=== PATIENT | female | born 1945 | race Caucasian/White ===

== ENCOUNTER 2018-07-04 00:39 | Outpatient (CLI) | payer MEDICARE, BC, SELFPAY ==
--- NOTE | 2018-07-04 14:30 | DI.MAMMO_ITS ---
SYMPTOM/DIAGNOSIS: SCREENING MAMMOGRAMS: Mammograms were interpreted according to the usual protocol including computer analysis with CAD system, tomosynthesis and C view imaging. Comparison is with the prior examinations. No masses or microcalcifications are seen. There is nothing to suggest malignancy. IMPRESSION: Negative mammogram. Routine screening is recommended. Category 1 , breast density category B. MQSA ASSESSMENT OF FINDINGS: Negative. Category 1. Patient will receive a letter notifying them of these results. BI-RADS category B. There are scattered areas of fibroglandular density.
== END 2018-07-04 00:59 ==
PROVIDERS: PCP Nurse Practitioner Family; Visit Provider Nurse Practitioner Family
DX: Z12.31 Encounter for screening mammogram for malignant neoplasm of breast (principal)
CPT/HCPCS: 77063; 77067

== ENCOUNTER 2018-07-06 02:16 | Outpatient (CLI) | payer MEDICARE, BC, SELFPAY ==
[2018-07-06 08:24] LABS: ALT 25 U/L (12-78); AST 22 U/L (15-37); Albumin 3.3 g/dL (3.4-5.0); Alkaline Phosphatase 86 U/L (46-116); BUN 14 mg/dL (7-18); Bilirubin, Total 0.5 mg/dL (0.2-1.0); CREATININE 0.92 mg/dL (0.55-1.02); Calcium 8.6 mg/dL (8.5-10.1); Chloride 105 mmol/L (98-107); Cholesterol 180 mg/dL (50-200); Estimated GFR 59.67 (mL/min/1.73m2); Glucose 172 mg/dL (70-100); HDL Cholesterol 78 mg/dL (40-60); LDL CHOLESTEROL 90 mg/dL (<100); Potassium 4.5 mmol/L (3.5-5.1); Sodium 141 mmol/L (136-145); Total Protein 6.3 g/dL (6.4-8.2); Triglyceride 102 mg/dL (30-150)
== END 2018-07-06 02:36 ==
PROVIDERS: PCP Nurse Practitioner Family; Visit Provider Nurse Practitioner Family
DX: E78.5 Hyperlipidemia, unspecified (principal); I10 Essential (primary) hypertension
CPT/HCPCS: 36415; 80053; 80061; 83721

== ENCOUNTER 2018-12-02 17:16 | Emergency (ER) | payer MEDICARE, BC, SELFPAY ==
[2018-12-02 17:22] VITALS: BP 160/91; PULSE 68; RESP 16; TEMP 36.7
--- NOTE | 2018-12-02 18:48 | W.ED.GENAD ---
Discharge Plan Disposition Patient Disposition: HOME Condition: Stable Discharge Details Chief Complaint: Orthopedic Clinical Impression: Plantar fasciitis of right foot Reason For Visit: right foot pain Primary Care Provider: Nell Felder ED Provider: Ubaldo Sarmiento Home Meds and New Rx's Prescriptions: Continued Shingrix (PF) 50 mcg/0.5 mL suspension for reconstitution 50 mcg IM .COMPLEX Qty: 1 RF: 1 irbesartan 150 mg tablet 150 mg PO DAILY Qty: 90 RF: 3 Lantus U-100 Insulin 100 UNIT/1 ML solution 40 - 50 unit SQ HS RF: 0 aspirin [Aspir-81] 81 MG tablet,delayed release (DR/EC) 81 mg PO DAILY RF: 0 calcium carbonate [Caltrate 600] 600 MG tablet 600 mg PO PRN RF: 0 Humalog KwikPen Insulin 100 UNIT/1 ML insulin pen 8 - 20 unit SQ TID RF: 0 omega-3 fatty acids-fish oil [Fish Oil] 1 EACH capsule 1 ea PO Q3D RF: 0 [id number]-agdt-[id number]-C-mina-bosw 1 EACH tablet 1 tab PO DAILY RF: 0 Victoza 3-Meliton 0.6 MG/0.1 ML pen injector 1.8 mg SQ DAILY RF: 0 polyethylene glycol 3350 [Miralax] 527 GM powder 17 g PO DAILY PRNQty: 1 RF: 3 blood-glucose meter 1 EACH misc 1 ea Miscellaneous QID Qty: 1 RF: 0 blood sugar diagnostic [Blood Glucose Test] 1 EACH strip 1 ea Miscellaneous QID Qty: 150 RF: 3 lancets 1 EACH misc 1 ea Miscellaneous QID Qty: 100 RF: 3 atorvastatin 40 mg tablet 40 mg PO DAILY Qty: 90 RF: 3 alcohol swabs [Alcohol Prep Pads] pads, medicated 1 pad TP QID Qty: 400 RF: 3 trazodone 100 mg tablet 100 mg PO HS PRN (Reason: insomnia) Qty: 90 RF: 0 pantoprazole 40 mg tablet,delayed release (DR/EC) 40 mg PO DAILY AM Qty: 90 RF: 3 cholecalciferol (vitamin D3) [Vitamin D3] 1,000 UNIT capsule 1,000 unit PO DAILY RF: 0 Discharge Instructions Instructions: Plantar Fasciitis Exercises (GEN), Plantar Fasciitis (ED) Additional Instructions: It is recommended that you purchase supportive shoe inserts or use more supportive shoe to see if this helps her symptoms. You may otherwise continue your bchw-xzm-ehhudiq pain medication as needed for discomfort and follow-up with podiatry as needed for reassessment. Feel free to return to the emergency department for any new or significant worsening of your symptoms or further concerns you may have Referrals: Tayo Blake DPM [[facility] STAFF PHYSICIAN] - (Call the office for arrangement of follow-up appointment as needed) Discharge Data Discharge Date/Time-TO BE ENTERED AT DEPARTURE: 12/02/18 18:57 Medical Decision Making Patient presenting to the emergency department for chief complaint of right foot pain. Patient states that this is been going on for greater than 2 months and initially would improve with rest but now seems to be more persistent. Patient denies any loss of sensation, numbness tingling, denies diabetes, denies any injury or trauma. Physical exam shows tenderness to the plantar surface of the midfoot otherwise no other acute findings are noted. High suspicion for plantar fasciitis. Patient states that she is not her chest new shoes in a while. Patient was offered radiological imaging but I do not feel that this is 100% necessary at this time. Patient was agreeable to purchasing more supportive footwear and following up with podiatry which she states she has close contact with for reassessment. Return precautions discussed. After discussion of diagnosis and plan of care patient has no further needs, questions, or concerns and states clear understanding to return to the emergency department for any worsening symptoms. HPI General Mode of arrival: wheelchair. Date/Time Provider Initiated Documentation: 12/02/18 17:22. Limitations to Documentation: no limitations. Information obtained by: patient, family and RN notes reviewed. History of Present Illness 73 year old F presents to the emergency department with the chief complaint of right foot pain, described as moderate and similar to prior episodes, with intensity rated at 7. Quality is described as sharp, and is localized to the right and lower extremity. Patient started experiencing this month(s) (2+) and it has been intermittent (but becoming worse). Rest improves symptom(s), Movement worsens symptoms . Patient notes no other symptoms.. Patient did receive the following treatments prior to arrival, none Related Data Home Medications Medication Instructions Recorded Confirmed Humalog KwikPen Insulin 8 - 20 unit SQ TID 12/15/12 07/03/18 Lantus U-100 Insulin 40 - 50 unit SQ HS vial 12/15/12 12/02/18 aspirin [Aspir-81] 81 mg PO DAILY tab-cap 12/15/12 12/02/18 calcium carbonate [Caltrate 600] 600 mg PO PRN 12/15/12 12/02/18 kopvrnwn-jtsr-[id number]-C-mina-bosw 1 tab PO DAILY 12/15/12 12/02/18 omega-3 fatty acids-fish oil [Fish 1 ea PO Q3D 12/15/12 12/02/18 Oil] Victoza 3-Meliton 1.8 mg SQ DAILY 12/02/14 12/02/18 polyethylene glycol 3350 [Miralax] 17 g PO DAILY PRN #1 bottle 12/02/14 12/02/18 blood-glucose meter #1 ea 08/10/16 07/03/18 blood sugar diagnostic [Blood #150 strip 01/14/17 07/03/18 Glucose Test] lancets #100 ea 08/29/17 07/03/18 cholecalciferol (vitamin D3) 1,000 unit PO DAILY 10/26/17 12/02/18 [Vitamin D3] irbesartan 150 mg tablet 150 mg PO DAILY #90 tab-cap 07/03/18 12/02/18 varicella-zoster glycoE [id number] 50 mcg IM .COMPLEX #1 each 07/03/18 12/02/18 adj(PF) 50 mcg/0.5 mL IM susp, kit atorvastatin 40 mg tablet 40 mg PO DAILY #90 tab-cap 07/26/18 12/02/18 alcohol swabs 1 pad TP QID #400 each 09/13/18 trazodone 100 mg tablet 100 mg PO HS PRN #90 tab-cap 10/09/18 12/02/18 pantoprazole 40 mg tablet,delayed 40 mg PO DAILY AM #90 tab-cap 11/24/18 12/02/18 release Previous Rx's Medication Instructions Recorded lancets #100 ea 08/29/17 irbesartan 150 mg tablet 150 mg PO DAILY #90 tab-cap 07/03/18 varicella-zoster glycoE [id number] 50 mcg IM .COMPLEX #1 each 07/03/18 adj(PF) 50 mcg/0.5 mL IM susp, kit atorvastatin 40 mg tablet 40 mg PO DAILY #90 tab-cap 07/26/18 alcohol swabs 1 pad TP QID #400 each 09/13/18 trazodone 100 mg tablet 100 mg PO HS PRN #90 tab-cap 10/09/18 pantoprazole 40 mg tablet,delayed 40 mg PO DAILY AM #90 tab-cap 11/24/18 release Allergies Allergy/AdvReac Type Severity Reaction Status Date / Time enalapril AdvReac Intermediate cough Unverified 12/02/18 17:24 codeine AdvReac N/V Unverified 12/02/18 17:24 Sulfa (Sulfonamide AdvReac NAUSEA Unverified 12/02/18 17:24 Antibiotics) General Stated Complaint: Orthopedic PIERCE: 4 Review of Systems Constitutional Denies body ache(s), Denies chills and Denies fever(s) Cardiovascular Denies chest pain and Denies dyspnea Respiratory Denies dyspnea Musculoskeletal Reports as per HPI, Denies joint swelling, Denies limited range of motion, Denies numbness and Denies tingling Integumentary/Breasts Denies rash Neurologic Denies confusion, Denies numbness, Denies sensory deficit and Denies tingling Psychiatric Denies confusion [facility] Medical History Essential hypertension (Chronic) Type 2 diabetes mellitus with retinopathy of both eyes, without long-term current use of insulin (Chronic) Sleep disturbance, unspecified (Chronic 09/26/07) Lumbago (Chronic 07/21/12) Seronegative rheumatoid arthritis (Inactive 06/26/11) Other and unspecified hyperlipidemia (Chronic 11/23/11) Lipoma of back (Chronic 04/12/16) Asymptomatic varicose veins (Chronic 03/06/12) Anxiety disorder (Chronic 07/21/12) Anxiety Arthritis Diabetes mellitus, type 2 GERD (gastroesophageal reflux disease) Hyperlipidemia Hypertension Lipoma of back Surgical History Abdominal hysterectomy Adenoidectomy Arthroplasty of knee Biopsy of breast Cholecystectomy Colonoscopy - MAC (10/31/17) Excision, Lipoma (11/17/17) Flex laryngoscopy (07/31/15) Oophrectomy, Left Family History Other Heart disease Hypothyroidism Mental disorder Social History Smoking/Tobacco Use Status: Former Tobacco Use Alcohol Intake: current Alcohol Intake frequency: holidays/special occasions only Drug use: Never Substance use type: does not use Household members: spouse Do you feel safe in your relationship?: Yes Exam Const General: cooperative, no acute distress and not ill appearing Orientation: alert, awake and oriented x3 HENMT Mouth: moist mucous membranes Resp Effort & Inspection: normal respiratory effort, able to speak in complete sentences and no respiratory distress Cardio Rate: regular rate Rhythm: regular rhythm Skin General skin exam: no rashes or lesions noted Neuro General: alert, awake, oriented x3, moves all extremities and no focal motor deficits Sensory Exam: no sensory deficits noted Extrem Right lower extremity: foot Details: normal capillary refill, tenderness Location: of the plantar foot Location: proximally and of the mid foot Location: along the plantar surface; not of the base of the 5th metatarsal, toes with normal ROM, vascular exam Details: dorsalis pedis pulse present, posterior tibial pulse present and normal capillary refill; not cool and no cyanosis, tendon exam Details: active flexion normal and active extension normal and motor-sensory exam Details: two point discrimination normal and light-touch normal Course Vital Signs Temperature 36.7 C 12/02/18 17:22 Pulse 68 12/02/18 17:22 Respiratory Rate 16 12/02/18 17:22 Blood Pressure 160/91 H 12/02/18 17:22 Temperature 36.7 C 12/02/18 17:22 Temperature Source Temporal Artery Scan 12/02/18 17:22 Pulse 68 12/02/18 17:22 Respiratory Rate 16 12/02/18 17:22 Respiratory Effort 12/02/18 17:36 Blood Pressure 160/91 H 12/02/18 17:22 Blood Pressure Position Sitting 12/02/18 17:22
== END 2018-12-02 18:57 | disposition home or self-care (01) ==
PROVIDERS: Emergency Provider Nurse Practitioner Family; PCP Nurse Practitioner Family
DX: M72.2 Plantar fascial fibromatosis (principal); E11.9 Type 2 diabetes mellitus without complications; I10 Essential (primary) hypertension; Z79.4 Long term (current) use of insulin
CPT/HCPCS: 36416; 82962; 99282

== ENCOUNTER 2019-05-07 11:53 | Outpatient (CLI) | payer MEDICARE, BC, SELFPAY ==
[2019-05-07 13:19] LABS: TSH 1.99 uIU/mL (0.36-3.74)
== END 2019-05-07 12:13 ==
PROVIDERS: PCP Nurse Practitioner Family; Visit Provider Internal Medicine Endocrinology, Diabetes & Metabolism
DX: E11.9 Type 2 diabetes mellitus without complications (principal); Z79.4 Long term (current) use of insulin
CPT/HCPCS: 36415; 82565; 83036; 84443

== ENCOUNTER 2019-06-08 01:37 | Outpatient (CLI) | payer MEDICARE, BC, SELFPAY ==
--- NOTE | 2019-06-08 10:00 | DIABASSESS_ITS ---
DESCRIPTION/PLAN: Annel Simeon presents for diabetes consult looking to use [employer] CGM. She has already applied for it and has hooked up with a distributor. She is awaiting delivery and will return when she gets her first device. Reviewed basics of how it is used. Individual DSME/T _0___ units billed TIME IN: 1000 OUT: 1015 No DM group education series being offered at this time.
== END 2019-06-08 01:57 ==
PROVIDERS: PCP Nurse Practitioner Family; Visit Provider Dietitian, Registered
DX: Z71.3 Dietary counseling and surveillance (principal); E11.9 Type 2 diabetes mellitus without complications

== ENCOUNTER 2019-06-13 14:20 | Outpatient (CLI) | payer MEDICARE, BC, SELFPAY ==
--- NOTE | 2019-06-13 14:15 | DI.US_ITS ---
EXAM: US LOWER EXTREMITY VENOUS LT CLINICAL HISTORY: L leg swelling x several years, M78.89, getting worse, r/o DVT. TECHNIQUE: Duplex evaluation of the deep venous system of the left lower extremity is performed acco rding to the usual protocol. COMPARISON: ABD WALL SOFT TISSUE MASS US from 03/19/2016 FINDINGS: There is no evidence of deep venous thrombosis. No superficial venous thrombus is seen. No evidence of a popliteal cyst. IMPRESSION: Negative venous ultrasound, left lower extremity. No evidence of DVT.
== END 2019-06-13 14:40 ==
PROVIDERS: PCP Nurse Practitioner Family; Visit Provider Nurse Practitioner Family
DX: R22.42 Localized swelling, mass and lump, left lower limb; M79.89 Other specified soft tissue disorders
CPT/HCPCS: 93971

== ENCOUNTER 2019-07-13 00:20 | Outpatient (CLI) | payer MEDICARE, BC, SELFPAY ==
--- NOTE | 2019-07-13 13:00 | DIABASSESS_ITS ---
DESCRIPTION/ASSESSMENT: Annel Simeon presents for follow up to CGM insertion and wishing for support to place the new G6 Dexcom independently. This is follow up to initial insertion here 2 weeks ago where we went over the process and together administered the G6 sensor, transmitter, and started up her health associate. INTERVENTION: Successfully applied the Dexcom G6 monitor independently. Briefly discussed her blood sugars and insulin dosing. She varies her Lantus from 40-50units based on blood sugar. Reviewed action of insulin and its impact of varying basal insulin. ACTION PLAN: She will call with further questions. She will take the same dose of Lantus nightly. Individual DSME/T __0__ units billed Face to face 15 minutes No DM group education series being offered at this time.
== END 2019-07-13 00:40 ==
PROVIDERS: PCP Nurse Practitioner Family; Visit Provider Dietitian, Registered
DX: E11.9 Type 2 diabetes mellitus without complications (principal); Z79.4 Long term (current) use of insulin; Z71.3 Dietary counseling and surveillance

== ENCOUNTER 2019-11-23 09:17 | Outpatient (CLI) | payer MEDICARE, BC, SELFPAY ==
--- NOTE | 2019-11-23 09:00 | DI.RAD_ITS ---
EXAM: XR KNEE RT 3V AP,LAT,ASIM INDICATION: eval R knee pain. COMPARISON: MRI L LOWER JOINT WO CONT from 12/17/2009 TECHNIQUE: 2D digital imaging was performed. FINDINGS: There is severe narrowing of the medial femoral tibial joint. There is periarticular spurring and sc lerosis. There is also some valgus angulation. Spurring is also seen at the patellofemoral joint. IMPRESSION: Severe degenerative changes of the medial femoral tibial joint. DATA REPOSITORY: RADIATION DOSE DELIVERED:
== END 2019-11-23 09:37 ==
PROVIDERS: PCP Nurse Practitioner Family; Referring Provider Nurse Practitioner Family; Visit Provider Student in an Organized Health Care Education/Training Program
DX: M25.561 Pain in right knee (principal); M17.11 Unilateral primary osteoarthritis, right knee
CPT/HCPCS: 20610; 73562; 99203; 99214; J1040

== ENCOUNTER 2020-05-10 17:21 | Emergency (ER) | payer MEDICARE, BC, SELFPAY ==
[2020-05-10] VITALS (37 sets, daily range): BP systolic 126–165; BP diastolic 46–116; PULSE 51–87; RESP 11–31; TEMP 36.6; O2SAT 90–98
--- NOTE | 2020-05-10 17:15 | RT.EKG_ITS ---
APPROVED REPORT Exam: Resting ECG Patient Location: E HR:75 bpm ECG Measurements Heart Rate 75 AXIS MD 160 P 72 QRSd 93 QRS -78 QT 410 T 37 QTc 457 Conclusion Sinus rhythm...normal P axis, V-rate 60- 99 Left anterior fascicular block...axis(240,-40), init forces inf nondiagnostic
[2020-05-10] MEDS: Lactated Ringers 1,000 ML 1000 ML IV (17:44)
[2020-05-10] MEDS: Normal Saline Flush 10 ML SYR IVP (17:45)
[2020-05-10] MEDS: Ondansetron 4 MG/2 ML VIAL IVP (17:45)
[2020-05-10 18:12] LABS: Abs Immature Grans 0.03 10^3/uL (0.0-0.06); Absolute Basophil Count 0.04 10^3/uL (0.0-0.2); Absolute Lymphocyte Count 0.99 10^3/uL (1.2-3.4); Absolute Monocyte Count 0.14 10^3/uL (0.1-0.8); Absolute Neutrophil Count 6.56 10^3/uL (1.2-6.7); Basophils % 0.5; HCT 43.5 % (36.0-46.0); HGB 14.6 g/dL (11.2-15.7); Immature Grans % 0.4; Lymphocytes % 12.8; MCH 31.3 pg (27.0-33.0); MCHC 33.6 % (32.0-36.0); MCV 93.1 fL (80-95); MPV 9.7 fL (8.0-11.0); Monocytes % 1.8; Neutrophils % 84.5; Nucleated RBC 0 %; Platelet Count 230 10^3/uL (130-400); RBC 4.67 10^6/uL (3.93-5.22); RDW 11.8 % (11.7-14.6); RDW-SD 40.2 fL; WBC 7.76 10^3/uL (4.4-10.8)
--- NOTE | 2020-05-10 18:12 | ED.GENADUL_ITS ---
Discharge Plan Disposition Patient Disposition: HOME Condition: Stable Discharge Details Chief Complaint: Nausea/Vomit/Diar Clinical Impression: Chest discomfort, Nausea & vomiting, Hyperglycemia Primary Care Provider: Nell Felder ED Provider: Reji Davis Home Meds and New Rx's Prescriptions: Continued irbesartan 300 mg tablet 300 mg PO DAILY Qty: 90 RF: 3 atorvastatin 40 mg tablet 40 mg PO DAILY Qty: 90 RF: 3 aspirin [Aspir-81] 81 MG tablet,delayed release (DR/EC) 81 mg PO DAILY RF: 0 calcium carbonate [Caltrate 600] 600 MG tablet 600 mg PO PRN RF: 0 Fish Oil 1 EACH capsule 1 ea PO Q3D RF: 0 xhbhckws-nkmr-tnz3-C-mina-bosw 1 EACH tablet 1 tab PO DAILY RF: 0 polyethylene glycol 3350 [Miralax] 527 GM powder 17 g PO DAILY PRNQty: 1 RF: 3 (DME) lancets 1 EACH misc 1 ea Miscellaneous QID Qty: 100 RF: 3 alcohol swabs [Alcohol Prep Pads] pads, medicated 1 pad TP QID Qty: 400 RF: 3 (DME) Blood Glucose Test Strip 1 ea Miscellaneous QID Qty: 150 RF: 3 (DME) blood-glucose meter Misc 1 ea Miscellaneous QID Qty: 1 RF: 0 trazodone 100 mg tablet 100 mg PO HS PRN (Reason: insomnia) Qty: 90 RF: 3 Lantus U-100 Insulin 100 unit/mL solution 20 - 35 unit subcut HS RF: 0 insulin lispro [Humalog KwikPen Insulin] 100 unit/mL insulin pen 8 - 20 unit subcut TID RF: 0 pantoprazole 40 mg tablet,delayed release (DR/EC) 40 mg PO DAILY PRN PRNRF: 0 cholecalciferol (vitamin D3) [Vitamin D3] 1,000 UNIT capsule 1,000 unit PO DAILY RF: 0 Discharge Instructions Instructions: Chest Pain (ED), Acute Nausea and Vomiting (ED) Additional Instructions: Please maintain a clear liquid diet tonight and tomorrow morning. You may advance your diet slowly tomorrow night to soft bland food. If you tolerate this, you may advance slowly to your normal regular diet the following day. Be sure to drink frequent small sips of clear fluids like water or Gatorade in order to stay hydrated. Your blood sugar was mildly elevated today. Please be sure to discuss this with your doctor as you may need medication changes to better control blood sugar. You should have an outpatient cardiac stress test performed. A referral has been made for this. Your liver function tests were slightly elevated today. Be sure to discuss this with your doctor and have repeat testing performed this week. Please contact your primary care physician to arrange follow-up. Call on Tuesday. Return to the ER for any worsening or new concerning symptoms. Referrals: Nell Felder NP [Primary Care Provider] - Discharge Data Discharge Date/Time-TO BE ENTERED AT DEPARTURE: 05/10/20 22:40 Medical Decision Making 0??74-year-old female with insulin-dependent diabetes here with nausea and vomiting today. No abdominal pain. Abdominal exam benign. We will give IV fluid and Zofran IV. Consider biliary disease and pancreatitis. Consider electrolyte abnormalities. Patient also notes some mild pleuritic chest discomfort that she states she has intermittently for some time now. No calf tenderness. Patient is saturating well, not tachypneic not tachycardic and with no shortness of breath. --Initial labs reviewed and very subtle elevation of AST and ALT noted. Hyperglycemic to 85. Normal anion gap. Troponin is normal. --Patient was reassessed after IV fluid bolus. She is tolerating p.o. fluids. Patient does note increased discomfort left chest, pleuritic. Oxygen saturation noted to be low 90s on room air. Plan to obtain CT of the chest to assess for pulmonary embolism. --Troponin normal and unchanged. Plan 155??CT of the chest was reviewed and interpreted by radiology: IMPRESSION: 1. No pulmonary emboli are seen. 2. Minimal dependent subsegmental atelectasis. Patient was given Tylenol for discomfort. He has been hydrated and is feeling better and tolerating fluids. Plan to discharge with outpatient follow-up. I will prescribe antiemetic. Disposition decision was made weighing the risks and benefits of hospitalization versus outpatient treatment, the risk for further decompensation, and the patient's wishes. The patient was stable and requested discharge. Prior to discharge, my usual and customary return precautions were reviewed with the patient - this included follow-up instructions and reason to return to the emergency department if condition worsens, does not improve as expected, or other new concerns arise. HPI General Mode of arrival: ambulatory . Date/Time Provider Initiated Documentation: 05/10/20 17:34 . Limitations to Documentation: no limitations . Information obtained by: patient . HPI Narrative: 74-year-old female with history of insulin-dependent diabetes, hypertension, here with chief complaint of nausea. Patient notes shortly after waking this morning she developed severe nausea with vomiting. She is vomited 4 times. Vomit is nonbloody. No modifiers. She has associated generalized weakness and fatigue. She does note that she has some mild chest discomfort when she takes a deep breath. She states that she intermittently does have this chronically. She denies abdominal pain. No diarrhea recently. She did have a bowel movement that she notes was a little constipated earlier today. Related Data Home Medications Medication Instructions Recorded Confirmed Fish Oil 1 ea PO Q3D 12/15/12 05/15/20 aspirin [Aspir-81] 81 mg PO DAILY tab-cap 12/15/12 05/15/20 calcium carbonate [Caltrate 600] 600 mg PO PRN 12/15/12 05/15/20 ahmprldz-mcqs-xzf5-C-mina-bosw 1 tab PO DAILY 12/15/12 05/15/20 polyethylene glycol 3350 [Miralax] 17 g PO DAILY PRN #1 bottle 12/02/14 05/15/20 lancets #100 ea 08/29/17 05/15/20 cholecalciferol (vitamin D3) 1,000 unit PO DAILY 10/26/17 05/15/20 [Vitamin D3] alcohol swabs 1 pad TP QID #400 each 09/13/18 05/15/20 blood sugar diagnostic #150 strip 05/16/19 05/15/20 blood-glucose meter #1 ea 05/16/19 05/15/20 atorvastatin 40 mg tablet 40 mg PO DAILY #90 tab-cap 06/13/19 05/15/20 irbesartan 300 mg tablet 300 mg PO DAILY #90 tab-cap 06/13/19 05/15/20 trazodone 100 mg tablet 100 mg PO HS PRN #90 tab-cap 12/24/19 05/15/20 insulin glargine 100 unit/mL 20 - 35 unit SUBCUT HS vial 03/17/20 05/15/20 subcutaneous solution insulin lispro 100 unit/mL 8 - 20 unit SUBCUT TID 03/17/20 05/15/20 subcutaneous pen pantoprazole 40 mg PO DAILY PRN PRN 05/10/20 05/15/20 Previous Rx's Medication Instructions Recorded lancets #100 ea 08/29/17 alcohol swabs 1 pad TP QID #400 each 09/13/18 atorvastatin 40 mg tablet 40 mg PO DAILY #90 tab-cap 06/13/19 irbesartan 300 mg tablet 300 mg PO DAILY #90 tab-cap 06/13/19 trazodone 100 mg tablet 100 mg PO HS PRN #90 tab-cap 12/24/19 Allergies Allergy/AdvReac Type Severity Reaction Status Date / Time enalapril AdvReac Intermediate cough Verified 05/10/20 17:33 codeine AdvReac N/V Verified 05/10/20 17:33 Sulfa (Sulfonamide AdvReac NAUSEA Verified 05/10/20 17:33 Antibiotics) General Stated Complaint: Nausea/Vomit/Diar PIERCE: 3 Review of Systems All systems reviewed & are unremarkable except as noted in HPI and below Cardiovascular Cardiovascular: Reports as per HPI and Denies dyspnea Respiratory Respiratory: Denies dyspnea Gastrointestinal Gastrointestinal: Reports as per HPI [facility] Medical History Anxiety (Chronic) Asymptomatic varicose veins (Chronic 03/06/12) DONALD LEFT LEG Essential hypertension (Chronic) GERD (gastroesophageal reflux disease) (Chronic) Lipoma of back (Resolved) Lipoma of back (Chronic 04/12/16) MRI confirmed 2016 (not bothersome) Lumbago (Chronic 07/21/12) Other and unspecified hyperlipidemia (Chronic 11/23/11) 06/2018 labs: 10-year ASCVD risk = ~38% --> increased to high intensity statin Retinal hemorrhage (Resolved 11/23/11) Seronegative rheumatoid arthritis (Inactive 06/26/11) Rheum [facility] [place] Dr. 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 Surgical History Adenoidectomy (Resolved) Arthroplasty of knee (Resolved) Biopsy of breast (Resolved) 1983 L benign Cholecystectomy (Resolved) Colonoscopy - MAC (Resolved 10/31/17) Excision, Lipoma (Resolved 11/17/17) left upper shoulder Flex laryngoscopy (Resolved 07/31/15) History of total abdominal hysterectomy and bilateral salpingo-oophorectomy (Inactive ~1969) Oophrectomy, Left (Resolved) Family History Other Heart disease Hypothyroidism Mental disorder Social History Smoking/Tobacco Use Status: Former Tobacco Use Alcohol Intake: current Alcohol Intake frequency: holidays/special occasions only Drug use: Never Substance use type: does not use Caregiver/Support person: No Household members: spouse Housing: house Number of Children: 2 Communication Needs: None Pets and animals: No Current gender identity: female What type of physical activity do you participate in: none Seatbelt use: always Do you feel safe at home: Yes Do you feel safe in your relationship?: Yes Exam Const General: cooperative and no acute distress HENMT Mouth: mucous membranes dry Eyes Conjunctivae: normal conjunctivae Sclera: normal sclerae EOM: EOM intact bilaterally Neck Neck: trachea midline and supple Resp Auscultation: clear to auscultation bilaterally, no rales, no rhonchi and no wheezes Cardio Rate: regular rate and not tachycardic Rhythm: regular rhythm GI Inspection: non-distended Palpation: soft, not firm, no guarding, no masses, not rigid and nontender Percussion: normal to percussion Auscultation: hypoactive bowel sounds Skin General skin exam: no rashes or lesions noted Neuro General: patient alert, patient awake and tone normal Extrem General: no edema Psych Appearance: grossly normal Mental Status: mental status grossly normal Course Vital Signs Vital signs: Vital Signs Temperature 36.6 C 05/10/20 17:28 Pulse 79 05/10/20 17:28 Respiratory Rate 12 05/10/20 17:28 Blood Pressure 157/75 H 05/10/20 17:28 Pulse Oximetry 95 05/10/20 17:28 Temperature 36.6 C 05/10/20 17:28 Temperature Source Skin 05/10/20 17:28 Pulse 67 05/10/20 18:01 Pulse 64 05/10/20 18:02 Respiratory Rate 11 L 05/10/20 18:02 Respiratory Effort 05/10/20 17:57 Blood Pressure 145/46 H 05/10/20 18:01 Blood Pressure Mean 73 05/10/20 18:01 Blood Pressure Position Sitting 05/10/20 17:28 Pulse Oximetry 98 05/10/20 18:02 Oxygen Delivery Method Room Air 05/10/20 17:28 Oxygen Flow Rate 0 05/10/20 17:28 Pain Level 0 05/10/20 17:28
[2020-05-10 18:28] LABS: ALT 63 U/L (14-59); AST 43 U/L (15-37); Albumin 3.6 g/dL (3.4-5.0); Alkaline Phosphatase 162 U/L (46-116); Anion Gap 10.6 mmol/L (3-11); BUN 18 mg/dL (7-18); Bilirubin, Total 0.8 mg/dL (0.2-1.0); CO2 24.4 mmol/L (21.0-32.0); CREATININE 1.02 mg/dL (0.55-1.02); Calcium 9.2 mg/dL (8.5-10.1); Chloride 102 mmol/L (98-107); Estimated GFR 52.83 (mL/min/1.73m2); Glucose 285 mg/dL (74-106); Lipase 92 U/L (73-393); Potassium 4.1 mmol/L (3.5-5.1); Sodium 137 mmol/L (136-145); Total Protein 6.9 g/dL (6.4-8.2)
[2020-05-10 18:41] LABS: Troponin I < 0.05 ng/mL (<0.06)
[2020-05-10] MEDS: Lactated Ringers 1,000 ML 150 ML IV (20:04)
--- NOTE | 2020-05-10 20:45 | DI.CT_ITS ---
EXAM: CT CHEST PE CTA CLINICAL HISTORY: pain left chest. TECHNIQUE: Imaging Protocol: Axial CT angiography was performed with multi-slice acquisition and mu lti-planar and/or 3D reconstructions. CONTRAST MATERIAL: Intravenous: Omnipaque 350 Contrast volume:69 cc COMPARISON: CR CHEST 2 VIEWS PA,LAT from 11/11/2014 FINDINGS: Pulmonary Arteries: No evidence of filling defect to suggest pulmonary emboli. Tracheobronchial tree: Patent where visualized. Mediastinum and Mackenzie: No dominant adenopathy or fluid collection. Pulmonary parenchyma: No consolidation or dominant measurable mass. No architectural distortion. Pleura: No effusion or pneumothorax. Heart: The heart is not dilated. Mild coronary artery calcifications are seen. Aorta: Thoracic aorta non-dilated. Mild atherosclerotic changes. Upper abdomen: Small hiatal hernia. Status post cholecystectomy. Bones: Degenerative disc changes. IMPRESSION: No evidence of pulmonary embolism. Small hiatal hernia. RADIATION DOSE DELIVERED: 358.75mGy.cm Total DLP DATA REPOSITORY: All CT scans at this facility are submitted to the National Radiology Data Registry (NRDR) Dose Index Registry (DIR) with the [employer] (ACR). RADIATION OPTIMIZATION: All CT scans at this facility use at least one of these dose optimization te chniques: automated exposure control; mA and/or kV adjustment per patient size (includes targeted exa ms where dose is matched to clinical indication); or iterative reconstruction.
[2020-05-10] MEDS: Acetaminophen 325 MG TAB 650 MG PO (20:53)
[2020-05-10 21:45] LABS: Troponin I < 0.05 ng/mL (<0.06)
--- NOTE | 2020-05-10 21:51 | DI.VRAD_ITS ---
PROCEDURE INFORMATION: Exam: CT Angiography Chest With Contrast Exam date and time: 05/10/2020 20:48 Age: 74 years old Clinical indication: Left-sided chest pain; Patient HX: Pain left chest TECHNIQUE: Imaging protocol: Computed tomographic angiography of the chest with intravenous contrast. 3D rendering: MIP and/or 3D reconstructed images were created by the technologist. COMPARISON: CR CHEST 2 VIEWS PA,LAT 11/11/2014 18:36 FINDINGS: Pulmonary arteries: No pulmonary emboli. Aorta: No aortic aneurysm. No aortic dissection. Lungs: No airspace consolidation. Minimal dependent subsegmental atelectasis. Pleural space: No pneumothorax. No pleural effusion. Heart: No cardiomegaly. No pericardial effusion. Lymph nodes: No enlarged lymph nodes. Gallbladder and bile ducts: Cholecystectomy. Bones/joints: No acute fracture. Soft tissues: No suspicious lesions. IMPRESSION: 1. No pulmonary emboli are seen. 2. Minimal dependent subsegmental atelectasis. Dictated and Authenticated by: Mary Mello MD. Ordering:POLO Mendoza MD
--- NOTE | 2020-05-10 22:05 | NUR.NOTE ---
Nursing Notereferal sent t5o primary to follow up next week....05/10/20:
== END 2020-05-10 22:40 | disposition home or self-care (01) ==
PROVIDERS: Emergency Provider Student in an Organized Health Care Education/Training Program; PCP Nurse Practitioner Family
DX: E11.65 Type 2 diabetes mellitus with hyperglycemia (principal); Z79.4 Long term (current) use of insulin; R11.2 Nausea with vomiting, unspecified; R07.81 Pleurodynia; R94.5 Abnormal results of liver function studies; I10 Essential (primary) hypertension
CPT/HCPCS: 36415; 71275; 80053; 83690; 93005; 96361; 96374; 99285; 84484; 85025; 93010; 99284; J2405

== ENCOUNTER 2021-01-20 02:10 | Outpatient (CLI) | payer MEDICARE, BC, SELFPAY ==
--- NOTE | 2021-01-20 08:45 | DI.DEXA_ITS ---
EXAM: XR DEXA BONE DENSITY W/WO IRVING CLINICAL HISTORY: Screening for osteoporosis IN POSTMENOPAUSAL WOMAN,Z78.0 TECHNIQUE: Routine DEXA evaluation of the lumbar spine, hip, or forearm. COMPARISON: Prior DEXA scan 2002 FINDINGS: Performed on a [employer] unit. Lateral image: No compression fracture evident. Lumbar Spine total T-score: 0.5. Two thousand three reading was 0.4. Hip total T-score:0.6 2003 reading was 1.1 Independent reading at the femoral neck yields a T-score of 0.8 Forearm total T-score: 0.0 IMPRESSION: Bone mineral density measures in the normal range. Fracture risk is low. Note: Any spine fracture indicates 5x risk for subsequent spine fracture and 2x risk for subsequent h ip fracture. World Health Organization criteria for BMD interpretation classify patients: Normal...... T- Score at or above -1.0 Osteopenic... T- Score between -1.0 and -2.5 Osteoporosis... T-Score at or below -2.5
== END 2021-01-20 02:30 ==
PROVIDERS: PCP Nurse Practitioner Family; Visit Provider Nurse Practitioner Family
DX: Z13.820 Encounter for screening for osteoporosis (principal); Z78.0 Asymptomatic menopausal state
CPT/HCPCS: 77080

== ENCOUNTER → 2021-02-10 08:50 | Outpatient (BNVA) | payer MEDICARE, BC, SELFPAY | PROVIDERS: PCP Nurse Practitioner Family; Referring Provider Nurse Practitioner Family; Visit Provider Physician Assistant Surgical | DX: M17.11 Unilateral primary osteoarthritis, right knee (principal) | CPT/HCPCS: 20610; J1040 ==

== ENCOUNTER → 2021-07-29 07:49 | Outpatient (BNVA) | payer MEDICARE, BC, SELFPAY | PROVIDERS: PCP Nurse Practitioner Family; Referring Provider Nurse Practitioner Family | DX: M17.11 Unilateral primary osteoarthritis, right knee (principal) | CPT/HCPCS: 20610; J1040 ==

== ENCOUNTER 2021-08-03 13:00 | Outpatient (CLI) | payer MEDICARE, BC, SELFPAY ==
--- NOTE | 2021-08-03 12:45 | DI.RAD_ITS ---
Exam(s) XR KNEE LT 3V AP,LAT,ASIM EXAM: XR KNEE LT 3V AP,LAT,ASIM CLINICAL HISTORY: L knee pain. TECHNIQUE: 2D digital imaging was performed of the left knee. Three images were obtained. AP, late ral and PA tunnel views were obtained. COMPARISON: CR XR KNEE RT 3V AP,LAT,ASIM from 11/23/2019 FINDINGS: BONES: No acute fracture is present. No bony destructive lesion is seen. JOINTS: There is marked narrowing of the medial femoral tibial joint space with [id number]. There is flattening of the articular surfaces. Periarticular spurring is seen at the posterior patella and the medial femoral tibial joint. No joint effusion is seen. SOFT TISSUE: Atherosclerosis. IMPRESSION: Marked degenerative changes of the medial femoral tibial joint. DATA REPOSITORY: RADIATION DOSE DELIVERED:
== END 2021-08-03 13:01 | disposition home or self-care (01) ==
LOC: DIORS 13:00
PROVIDERS: PCP Nurse Practitioner Family; Referring Provider Nurse Practitioner Family; Visit Provider Physician Assistant
DX: M25.562 Pain in left knee; M17.12 Unilateral primary osteoarthritis, left knee
CPT/HCPCS: 20610; 73562; J1040

== ENCOUNTER 2021-09-28 15:43 | Outpatient (REF) | payer MEDICARE, BC, SELFPAY ==
[2021-09-30 18:28] LABS: COVID-19 RT-PCR UVMMC Result Negative (Negative)
== END 2021-09-28 15:44 | disposition home or self-care (01) ==
LOC: LBN 15:43
PROVIDERS: PCP Nurse Practitioner Family; Visit Provider Nurse Practitioner
DX: R05.9 Cough, unspecified (principal); Z20.822 Contact with and (suspected) exposure to COVID-19
CPT/HCPCS: U0003

== ENCOUNTER 2022-01-07 02:22 | Outpatient (CLI) | payer MEDICARE, BC, SELFPAY ==
[2022-01-07 08:41] LABS: Abs Immature Grans 0.03 10^3/uL (0.0-0.06); Absolute Basophil Count 0.06 10^3/uL (0.0-0.2); Absolute Eosinophil Count 0.25 10^3/uL (0.0-0.7); Absolute Lymphocyte Count 2.24 10^3/uL (1.2-3.4); Absolute Monocyte Count 0.58 10^3/uL (0.1-0.8); Absolute Neutrophil Count 3.95 10^3/uL (1.2-6.7); Basophils % 0.8; Eosinophils % 3.5; HGB 14.1 g/dL (11.2-15.7); Immature Grans % 0.4; Lymphocytes % 31.5; MCH 30.5 pg (27.0-33.0); MCHC 32.8 % (32.0-36.0); MCV 93.1 fL (80-95); MPV 9.6 fL (8.0-11.0); Monocytes % 8.2; Neutrophils % 55.6; Nucleated RBC 0 %; Platelet Count 281 10^3/uL (130-400); RBC 4.62 10^6/uL (3.93-5.22); RDW 11.9 % (11.7-14.6); RDW-SD 40.6 fL; WBC 7.11 10^3/uL (4.4-10.8)
[2022-01-07 09:16] LABS: COMMENT (LAB VIEW ONLY) 293.43 mg/dL; Microalb ug/mg Crea 5.9 ug/mg Cr
[2022-01-07 09:16] LABS: ALT 64 U/L (14-59); AST 53 U/L (15-37); Albumin 3.5 g/dL (3.4-5.0); Alkaline Phosphatase 126 U/L (46-116); Anion Gap 8.8 mmol/L (3-11); BUN 21 mg/dL (7-18); Bilirubin, Total 0.4 mg/dL (0.2-1.0); CO2 30.2 mmol/L (21.0-32.0); CREATININE 0.9 mg/dL (0.55-1.02); Calcium 9.3 mg/dL (8.5-10.1); Calculated LDL 64 mg/dL (<100); Chloride 104 mmol/L (98-107); Cholesterol 161 mg/dL (<200); Glucose 86 mg/dL (74-106); HDL Cholesterol 75 mg/dL (40-60); Potassium 3.9 mmol/L (3.5-5.1); Sodium 143 mmol/L (136-145); Total Protein 6.6 g/dL (6.4-8.2); Triglyceride 113 mg/dL (<150)
== END 2022-01-07 02:23 | disposition home or self-care (01) ==
LOC: LBO 02:22
PROVIDERS: PCP Nurse Practitioner Family; Visit Provider Nurse Practitioner Family
DX: E11.319 Type 2 diabetes mellitus with unspecified diabetic retinopathy without macular edema (principal); Z79.4 Long term (current) use of insulin; Z51.81 Encounter for therapeutic drug level monitoring; E11.9 Type 2 diabetes mellitus without complications; E78.5 Hyperlipidemia, unspecified; Z28.310 Unvaccinated for COVID-19
CPT/HCPCS: 36415; 80053; 80061; 82043; 82570; 85025

== ENCOUNTER → 2022-02-05 01:08 | Outpatient (CLI) | payer MEDICARE, BC, SELFPAY ==
--- NOTE | 2022-02-05 07:45 | DI.US_ITS ---
Exam(s) US ABDOMEN EXAM: US ABDOMEN CLINICAL HISTORY: Persistent elevated LFTs; ?fatty liver?,R79.89 TECHNIQUE: Ultrasound of complete upper abdomen performed using standard protocol. COMPARISON: CT CT CHEST PE CTA from 05/10/2020 FINDINGS: There is no ascites evident. LIVER: There are no hepatic lesions evident nor obvious dilatation of intrahepatic ducts. GALLBLADDER/BILIARY: Gallbladder is not visualized, possibly related to prior cholecystectomy. The common hepatic duct ismildly, measuring 7mm at the level of ponce hepatis. PANCREAS: There is no evidence of pancreatic mass nor dilatation of the pancreatic duct. SPLEEN: The spleen is not enlarged and there are no intrasplenic lesions evident. KIDNEYS:Kidneys exhibit normal size with no evidence of solid mass, calculus, nor hydronephrosis. No cortical cysts evident. ABDOMINAL AORTA: There is no evidence of abdominal aortic aneurysm. IVC: Normal diameter where visualized. IMPRESSION: 1. Gallbladder not seen and is probably surgically absent. The size of the CBD is commensurate with post cholecystectomy status and age. 2. No other significant ultrasound findings in the upper abdomen. 3. There is no ascites. DATA REPOSITORY:
== END ==
PROVIDERS: PCP Nurse Practitioner Family; Visit Provider Nurse Practitioner Family
DX: R79.89 Other specified abnormal findings of blood chemistry (principal); Z90.49 Acquired absence of other specified parts of digestive tract
CPT/HCPCS: 76700

== ENCOUNTER 2022-02-06 22:15 | Emergency (ER) | payer MEDICARE, BC, SELFPAY ==
[2022-02-06 22:30] VITALS: BP 147/47; PULSE 91; RESP 29; TEMP 36.4; O2SAT 96
[2022-02-06 22:33] VITALS: BP 147/71; PULSE 89; RESP 22; O2SAT 97
[2022-02-06 22:42] LABS: Source Nasal/Nares
[2022-02-06] MEDS: Normal Saline 1,000 ML 1000 ML IV (22:42)
[2022-02-06 22:44] LABS: Abs Immature Grans 0.05 10^3/uL (0.0-0.06); Absolute Basophil Count 0.05 10^3/uL (0.0-0.2); Absolute Eosinophil Count 0.05 10^3/uL (0.0-0.7); Absolute Lymphocyte Count 1.93 10^3/uL (1.2-3.4); Absolute Neutrophil Count 7.74 10^3/uL (1.2-6.7); BE (Venous) -1 mmol/L (-2-3); Basophils % 0.5; Eosinophils % 0.5; HCO3 (Venous) 24 mmol/L (23-28); HCT 41.9 % (36.0-46.0); HGB 13.9 g/dL (11.2-15.7); Immature Grans % 0.5; MCH 30.2 pg (27.0-33.0); MCHC 33.2 % (32.0-36.0); MCV 91 fL (80-95); MPV 9.3 fL (8.0-11.0); Monocytes % 8.4; Neutrophils % 72.1; O2 Sat (Venous) 82 %; Platelet Count 292 10^3/uL (130-400); RBC 4.61 10^6/uL (3.93-5.22); RDW 12.2 % (11.7-14.6); RDW-SD 40.7 fL; TCO2 (Venous) 22 mmol/L (24-29); WBC 10.72 10^3/uL (4.4-10.8); pCO2 (Venous) 40 mmHg (41-51); pH (Venous) 7.39 (7.31-7.41); pO2 (Venous) 45 mmHg
[2022-02-06 22:46] LABS: Bilirubin Negative (Negative); Blood Negative (Negative); Clarity Clear (Clear); Glucose 500 mg/dL (Negative); Ketones 15 mg/dL (Negative); Leukocyte Esterase Negative (Negative); Nitrite Negative (Negative); Urobilinogen 0.2 EU/dL (Up TO 0.2); pH 5.5 (5-8)
--- NOTE | 2022-02-06 22:58 | ED.GENADUL_ITS ---
Discharge Plan Disposition Patient Disposition: HOME Condition: Stable Discharge Details Clinical Impression: Hyperglycemia Primary Care Provider: Nell Felder ED Provider: Francisco Aldana Home Meds and New Rx's Prescriptions: Continued hydrocodone-chlorpheniramine 10-8 mg/5 mL suspension,extended rel 12 hr 5 ml PO Q12H MDD 10ml PRN (Reason: cold symptoms) Qty: 118 0RF docusate sodium [Colace] 100 mg capsule 100 mg PO DAILY PRN (Reason: constipation) (DME) [employer] [place] 2 [place] Misc See Rx Instructions .ROUTE .MEDSUPPLY Qty: 1 Rx Instructions: As directed hydrochlorothiazide 12.5 mg tablet 12.5 mg PO DAILY AM Qty: 90 3RF trazodone 100 mg tablet 100 mg PO HS PRN (Reason: insomnia) Qty: 90 3RF aspirin [Aspir-81] 81 MG tablet,delayed release (DR/EC) 81 mg PO DAILY Label Comments: calcium carbonate [Caltrate 600] 600 MG tablet 600 mg PO PRN Label Comments: Fish Oil 1 EACH capsule 1 ea PO Q3D Label Comments: Rx Instructions: 2X'S WEEK [id number]-mina-[id number] 1 EACH tablet 1 tab PO DAILY Label Comments: Rx Instructions: Dr Tsang rec polyethylene glycol 3350 [Miralax] 527 GM powder 17 g PO DAILY PRNQty: 1 alcohol swabs [Alcohol Prep Pads] pads, medicated 1 pad TP QID Qty: 400 3RF Rx Instructions: Dx: E11.9 Lantus U-100 Insulin 100 unit/mL solution 40 - 50 unit subcut HS Label Comments: Rx Instructions: 03/15/16[place] 30-[place] [place] [facility] [place]. Lantus up to 48 units in the p.m. Sarah Manning, [employer] 08/31/19 Decrease to 30 units 05/16/20 40-50 U daily 03/13/20 20-35 units insulin lispro [Humalog KwikPen Insulin] 100 unit/mL insulin pen 20 - 30 unit subcut TID Label Comments: pt states took 5 unitsof humalog in car on way here because her blood sugar was too high, pt reports 280. Rx Instructions: PER SLIDING SCALE before each meal between 6-10 U am,10-30 U pm 05/15/19[place] [place], varies the dose 20-40 units before meals 3 times a day. Sarahhugo Manning APRN 03/13/20 30 units before meals 3 times daily 05/16/20 20-30 U tid 06/19/21 [facility] [place] breakfast 12-18u depending on food choices and BS, and lunch 20-28u depending and food and BS. atorvastatin 40 mg tablet 40 mg PO DAILY Qty: 90 3RF meloxicam 15 mg tablet 15 mg PO DAILY Qty: 30 6RF irbesartan 300 mg tablet 300 mg PO DAILY Qty: 90 3RF Victoza 2-Meliton 0.6 mg/0.1 mL (18 mg/3 mL) pen injector 1.8 mg subcut DAILY Rx Instructions: 06/19/21 Start Victoza 0.6mg/day x 1 month then increase to 1.2mg/day x 1month, then increase to 1.8mg. If side effects, go back to previous dose. 01/06/22 not consistent w/ dosing. cgc pantoprazole 40 mg tablet,delayed release (DR/EC) 40 mg PO DAILY PRN PRN Label Comments: pt states only takes when she needs it Rx Instructions: Take 40 mg once daily in the morning on an empty stomach, at least 20-30 minutes before meal cholecalciferol (vitamin D3) [Vitamin D3] 1,000 UNIT capsule 1,000 unit PO DAILY Discharge Instructions Additional Instructions: Your blood sugar was high but there was no evidence of acid production due to it being so high continue your diabetic medications and follow up with your primary care provider this week if you feel more ill, have severe weakness, fevers, or difficulty breathing return to the emergency department Medical Decision Making 76 yo female with hx of t2dm on insulin, gerd, anxiety, htn, who comes in with ems with complaints of high blood sugars for a day. She has a sensor that was placed this past tuesday on right posterior arm. She states today her sensor has been reading blood sugars as high and so came here. She denies fevers, chi lls, chest pain, dyspnea, abdomen pain, vomit. Blood glucose finger stick here was 400. She arrives caox4 speaking clearly with no focal deficits. No abdomen tenderness.No findings on exam to suggest hhs, suspect this is hyperglycemia due to diabetes, will evaluate for dka, give fluids and reassess. No infectious symptoms to suggest sepsis and vitals are stable. labs show no significant acute abnormalities other than sugar of just over 400. She feels better after fluids, no complaints now. Ordered her home nightly lantus and she is stable for d/c, advised to f/u with pcp and return precautions given Differential Diagnosis Differential Diagnosis: faulty sensor, dka, hyperglycemia Medical Records Medical records reviewed: Yes I reviewed the patient's medical records. Lab Data Lab results reviewed: Yes I reviewed the patient's lab results. HPI General Mode of arrival: EMS . Date/Time Provider Initiated Documentation: 02/06/22 22:15 . Limitations to Documentation: no limitations . Information obtained by: patient . History of Present Illness 76 year old F presents to the emergency department with the chief complaint of high blood sugar, described as moderate, Patient started experiencing this day(s) (1) and it has been constant. No relieving factors improve symptom(s), No exacerbating factors reported . Patient did receive the following treatments prior to arrival, none Related Data Home Medications Medication Instructions Recorded Confirmed aspirin 81 mg tablet,delayed 81 mg PO DAILY 12/15/12 02/06/22 release (Aspir-) calcium carbonate 600 mg calcium 600 mg PO PRN 12/15/12 02/06/22 (1,500 mg) tablet (Caltrate 600) glucosamine 750 ww-kbwhetrdej-ors 1 tab PO DAILY 12/15/12 02/06/22 no.1 625 mg-C 30 fu-uwia-kmyw tablet omega-3 fatty acids-fish oil 340 1 ea PO Q3D 12/15/12 02/06/22 mg-1,000 mg capsule (Fish Oil) polyethylene glycol 3350 17 17 g PO DAILY PRN ##1 12/02/14 02/06/22 gram/dose oral powder (Miralax) cholecalciferol (vitamin D3) 25 1,000 unit PO DAILY 10/26/17 02/06/22 mcg (1,000 unit) capsule (Vitamin D3) alcohol swabs (Alcohol Prep Pads) 1 pad topical QID To cleanse skin 09/13/18 01/13/22 prior to insulin injections QID. #400 ea pantoprazole 40 mg tablet,delayed 40 mg PO DAILY PRN PRN 05/10/20 02/06/22 release insulin glargine 100 unit/mL 40 - 50 unit subcut HS 05/23/20 02/06/22 subcutaneous solution (Lantus U-100 Insulin) docusate sodium 100 mg capsule 100 mg PO DAILY PRN constipation 06/19/21 02/06/22 (Colace) flash glucose scanning reader #1 ea 06/19/21 01/13/22 (FreeStyle [place] 2 [place]) insulin lispro 100 unit/mL 20 - 30 unit subcut TID 06/25/21 02/06/22 subcutaneous pen (Humalog KwikPen (U-100) Insulin) atorvastatin 40 mg tablet 40 mg PO DAILY #90 tab-caps 08/24/21 02/06/22 meloxicam 15 mg tablet 15 mg PO DAILY knee pain #30 tabs 09/08/21 02/06/22 irbesartan 300 mg tablet 300 mg PO DAILY #90 tab-caps 09/23/21 02/06/22 hydrocodone 10 mg-chlorpheniramine 5 ml PO Q12H PRN cold symptoms 09/28/21 02/06/22 8 mg/5 mL oral susp extend.rel 12hr #118 mL hydrochlorothiazide 12.5 mg tablet 12.5 mg PO DAILY AM #90 tab-caps 12/24/21 02/06/22 trazodone 100 mg tablet 100 mg PO HS PRN insomnia #90 12/24/21 02/06/22 tab-caps liraglutide 0.6 mg/0.1 mL (18 mg/3 1.8 mg subcut DAILY 01/08/22 02/06/22 mL) subcutaneous pen injector (Victoza 2-Meliton) Previous Rx's Medication Instructions Recorded alcohol swabs (Alcohol Prep Pads) 1 pad topical QID To cleanse skin 09/13/18 prior to insulin injections QID. #400 ea atorvastatin 40 mg tablet 40 mg PO DAILY #90 tab-caps 08/24/21 meloxicam 15 mg tablet 15 mg PO DAILY knee pain #30 tabs 09/08/21 irbesartan 300 mg tablet 300 mg PO DAILY #90 tab-caps 09/23/21 hydrocodone 10 mg-chlorpheniramine 5 ml PO Q12H PRN cold symptoms 09/28/21 8 mg/5 mL oral susp extend.rel 12hr #118 mL hydrochlorothiazide 12.5 mg tablet 12.5 mg PO DAILY AM #90 tab-caps 12/24/21 trazodone 100 mg tablet 100 mg PO HS PRN insomnia #90 12/24/21 tab-caps Allergies Allergy/AdvReac Type Severity Reaction Status Date / Time enalapril AdvReac Intermediate cough Verified 02/06/22 22:36 codeine AdvReac N/V Verified 02/06/22 22:36 liraglutide AdvReac Other (See Verified 02/06/22 22:36 Comment) Sulfa (Sulfonamide AdvReac NAUSEA Verified 02/06/22 22:36 Antibiotics) General Stated Complaint: Diabetes PIERCE: 3 Review of Systems All systems reviewed & are unremarkable except as noted in HPI and below Constitutional Constitutional: Denies chills, Denies fever(s) and Denies weakness ENT Ears, Nose, Mouth, and Throat: Denies change in voice Cardiovascular Cardiovascular: Denies dyspnea Respiratory Respiratory: Denies cough and Denies dyspnea Gastrointestinal Gastrointestinal: Denies abdominal pain, Denies nausea and Denies vomiting Genitourinary Genitourinary: Denies dysuria Musculoskeletal Musculoskeletal: Denies joint swelling Integumentary/Breasts Skin/Breast: Denies rash Neurologic Neurologic: Denies weakness PFSH All Active Problems (Updated 02/07/22 @ 00:05 by Francisco Aldana MD) Hyperglycemia (Acute) Elevated LFTs (Acute) Osteoarthritis of left knee (Acute) Steroid Injection: 08/03/2021 Arthritis of right knee (Acute) DEPO injection 07/29/21 Type 2 diabetes mellitus with retinopathy of both eyes, with long-term current use of insulin (Chronic) [facility] [place] 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 Arthralgia (Acute 11/23/11) Intractable migraine with status migrainosus (Acute 11/23/11) Anxiety (Chronic) GERD (gastroesophageal reflux disease) (Chronic) Essential hypertension (Chronic) Sleep disturbance, unspecified (Chronic 09/26/07) heavy snoring, declined 05/2011, delined 06/2018 Lumbago (Chronic 07/21/12) Other and unspecified hyperlipidemia (Chronic 11/23/11) Lipoma of back (Chronic 04/12/16) MRI confirmed 2015 (not bothersome) Asymptomatic varicose veins (Chronic 03/06/12) DONALD LEFT LEG Medical History Plantar fasciitis of right foot Retinal hemorrhage (11/23/11) Surgical History Adenoidectomy Arthroplasty of knee Biopsy of breast 1983 L benign Cholecystectomy Colonoscopy - MAC (10/31/17) Excision, Lipoma (11/17/17) left upper shoulder Flex laryngoscopy (07/31/15) History of total abdominal hysterectomy and bilateral salpingo-oophorectomy (~1969) Oophrectomy, Left 1969's Family History Other Heart disease Hypothyroidism Mental disorder Social History Smoking/Tobacco Use Status: Former Tobacco Use tobacco type: cigarettes Quit Date: 09/26/86 Tobacco: How many years used: 15 Smoking risk assessment performed?: Yes Alcohol Intake: current Alcohol Intake frequency: holidays/special occasions only Drug use: Never Substance use type: does not use Caregiver/Support person: No Household members: spouse Housing: house Number of Children: 2 Communication Needs: None Pets and animals: No Current gender identity: female What type of physical activity do you participate in: none Seatbelt use: always Do you feel safe at home: Yes Do you feel safe in your relationship?: Yes Exam Const General: no acute distress Orientation: alert HENMT Head: normal to inspection Ears: external ears normal General nose exam: external nose normal Mouth: moist mucous membranes Eyes General: appearance normal, both eyes and all related structures Neck Neck: normal visual inspection Resp Effort & Inspection: normal respiratory effort and able to speak in complete sentences Cardio Rate: regular rate GI Palpation: soft and nontender Skin General skin exam: no rashes or lesions noted Neuro General: patient alert and patient oriented x3 Extrem General: normal to inspection Psych Mental Status: mental status grossly normal Course Vital Signs Vital signs: Vital Signs Temperature 36.4 C L 02/06/22 22:30 Pulse 91 H 02/06/22 22:30 Respiratory Rate 29 H 02/06/22 22:30 Blood Pressure 147/47 H 02/06/22 22:30 Pulse Oximetry 96 02/06/22 22:30 Temperature 36.4 C L 02/06/22 22:30 Temperature Source Skin 02/06/22 22:30 Pulse 91 H 02/06/22 22:30 Respiratory Rate 29 H 02/06/22 22:30 Respiratory Effort Non-Labored 02/06/22 22:41 Blood Pressure 147/47 H 02/06/22 22:30 Blood Pressure Position Sitting 02/06/22 22:30 Pulse Oximetry 96 02/06/22 22:30 Oxygen Delivery Method Room Air 02/06/22 22:30 Oxygen Flow Rate 0 02/06/22 22:30 Pain Level 0 02/06/22 22:30 Lab/Test Results Lab/Test Results: Laboratory Tests Range/Units 02/06/22 02/06/22 02/06/22 22:30 22:30 22:34 WBC (4.4-10.8) 10^3/uL 10.72 RBC (3.93-5.22) 10^6/uL 4.61 Hgb (11.2-15.7) g/dL 13.9 Hct (36.0-46.0) % 41.9 MCV (80-95) fL 91 MCH (27.0-33.0) pg 30.2 MCHC (32.0-36.0) % 33.2 RDW (11.7-14.6) % 12.2 Plt Count (130-400) 10^3/uL 292 MPV (8.0-11.0) fL 9.3 Immature Gran % 0.5 Neutrophils % 72.1 Lymphocytes % 18.0 Monocytes % 8.4 Eosinophils % 0.5 Basophils % 0.5 Nucleated RBC % (0.0-0.3) % 0.0 Absolute Neutrophils (1.2-6.7) 10^3/uL 7.74 H Absolute Lymphocytes (1.2-3.4) 10^3/uL 1.93 Absolute Monocytes (0.1-0.8) 10^3/uL 0.90 H Absolute Eosinophils (0.0-0.7) 10^3/uL 0.05 Absolute Basophils (0.0-0.2) 10^3/uL 0.05 VBG pH (7.31-7.41) VBG pCO2 (41-51) mmHg VBG pO2 mmHg VBG HCO3 (23-28) mmol/L VBG Total CO2 (24-29) mmol/L VBG O2 Saturation % VBG Base Excess (-2-3) mmol/L Urine Color (Yellow) Yellow Urine Clarity (Clear) Clear Urine pH (5-8) 5.5 Ur Specific [place] (1.005-1.025) 1.010 Urine Protein (Negative) mg/dL Negative Urine Ketones (Negative) mg/dL 15 H Urine Blood (Negative) Negative Urine Nitrite (Negative) Negative Urine Bilirubin (Negative) Negative Urine Urobilinogen (Up TO 0.2) EU/dL 0.2 Ur Leukocyte Esterase (Negative) Negative Urine Glucose (Negative) mg/dL 500 H COVID-19 Source Nasal/Nares Range/Units 02/06/22 22:34 WBC (4.4-10.8) 10^3/uL RBC (3.93-5.22) 10^6/uL Hgb (11.2-15.7) g/dL Hct (36.0-46.0) % MCV (80-95) fL MCH (27.0-33.0) pg MCHC (32.0-36.0) % RDW (11.7-14.6) % Plt Count (130-400) 10^3/uL MPV (8.0-11.0) fL Immature Gran % Neutrophils % Lymphocytes % Monocytes % Eosinophils % Basophils % Nucleated RBC % (0.0-0.3) % Absolute Neutrophils (1.2-6.7) 10^3/uL Absolute Lymphocytes (1.2-3.4) 10^3/uL Absolute Monocytes (0.1-0.8) 10^3/uL Absolute Eosinophils (0.0-0.7) 10^3/uL Absolute Basophils (0.0-0.2) 10^3/uL VBG pH (7.31-7.41) 7.39 VBG pCO2 (41-51) mmHg 40 L VBG pO2 mmHg 45 VBG HCO3 (23-28) mmol/L 24 VBG Total CO2 (24-29) mmol/L 22 L VBG O2 Saturation % 82 VBG Base Excess (-2-3) mmol/L -1 Urine Color (Yellow) Urine Clarity (Clear) Urine pH (5-8) Ur Specific [place] (1.005-1.025) Urine Protein (Negative) mg/dL Urine Ketones (Negative) mg/dL Urine Blood (Negative) Urine Nitrite (Negative) Urine Bilirubin (Negative) Urine Urobilinogen (Up TO 0.2) EU/dL Ur Leukocyte Esterase (Negative) Urine Glucose (Negative) mg/dL COVID-19 Source
[2022-02-06 23:00] VITALS: BP 137/64; PULSE 65; RESP 18; O2SAT 94
[2022-02-06 23:03] LABS: ALT 88 U/L (14-59); AST 59 U/L (15-37); Albumin 3.9 g/dL (3.4-5.0); Alkaline Phosphatase 158 U/L (46-116); Anion Gap 10.7 mmol/L (3-11); BUN 28 mg/dL (7-18); Bilirubin, Total 0.8 mg/dL (0.2-1.0); CO2 24.3 mmol/L (21.0-32.0); CREATININE 1.4 mg/dL (0.55-1.02); Calcium 9.1 mg/dL (8.5-10.1); Chloride 97 mmol/L (98-107); Creatine Kinase 123 U/L (26-192); Estimated GFR 36.46 (mL/min/1.73m2); Glucose 413 mg/dL (74-106); Magnesium 2.1 mg/dL (1.8-2.4); Potassium 4.1 mmol/L (3.5-5.1); Sodium 132 mmol/L (136-145); Total Protein 7.7 g/dL (6.4-8.2)
[2022-02-06 23:15] VITALS: BP 144/67; PULSE 64; RESP 18; O2SAT 96
[2022-02-06 23:30] VITALS: BP 138/63; PULSE 61; RESP 19; O2SAT 96
[2022-02-06 23:39] LABS: COVID-19 PCR Negative (Negative)
[2022-02-06 23:45] VITALS: BP 146/66; PULSE 64; RESP 18; O2SAT 97
[2022-02-07] VITALS: BP 147/73; PULSE 61; RESP 18; O2SAT 97
[2022-02-07 00:15] VITALS: BP 155/101; PULSE 64; RESP 15; O2SAT 97
[2022-02-07 00:30] VITALS: BP 159/87; PULSE 64; RESP 15; O2SAT 97
[2022-02-07 00:45] VITALS: BP 121/83; PULSE 69; RESP 18
[2022-02-07] MEDS: Insulin Glargine 100 UNITS/ML UNIT 40 UNITS SC (00:57)
[2022-02-07 01:00] VITALS: BP 121/83; PULSE 69; RESP 18; TEMP 36.4; O2SAT 97
== END 2022-02-07 01:08 | disposition home or self-care (01) ==
PROVIDERS: Emergency Provider Emergency Medicine; PCP Nurse Practitioner Family
DX: E11.65 Type 2 diabetes mellitus with hyperglycemia (principal); Z79.4 Long term (current) use of insulin
CPT/HCPCS: 36416; 80053; 82550; 82805; 82962; 87635; 96360; 96372; 99283; 99284; 81003; 83735; 85025; J1815

== ENCOUNTER 2022-02-15 04:08 | Outpatient (CLI) | payer MEDICARE, BC, SELFPAY ==
[2022-02-15 12:08] LABS: ALT 60 U/L (14-59); AST 49 U/L (15-37); Albumin 3.5 g/dL (3.4-5.0); Alkaline Phosphatase 117 U/L (46-116); Anion Gap 10.1 mmol/L (3-11); BUN 26 mg/dL (7-18); Bilirubin, Total 0.8 mg/dL (0.2-1.0); CO2 26.9 mmol/L (21.0-32.0); CREATININE 1.2 mg/dL (0.55-1.02); Calcium 9.2 mg/dL (8.5-10.1); Chloride 104 mmol/L (98-107); Estimated GFR 43.56 (mL/min/1.73m2); Glucose 147 mg/dL (74-106); Potassium 4.3 mmol/L (3.5-5.1); Sodium 141 mmol/L (136-145); Total Protein 6.5 g/dL (6.4-8.2)
== END 2022-02-15 04:09 | disposition home or self-care (01) ==
LOC: LBO 04:08
PROVIDERS: PCP Nurse Practitioner Family; Visit Provider Nurse Practitioner
DX: R79.89 Other specified abnormal findings of blood chemistry (principal)
CPT/HCPCS: 36415; 80053

== ENCOUNTER 2022-03-04 02:55 | Outpatient (CLI) | payer MEDICARE, BC, SELFPAY ==
--- NOTE | 2022-03-04 11:00 | NS.NUTBLAN_ITS ---
Annel was referred to diabetes self management education. She is 76 years old and has had Dm2 x 21 years. DM meds: lantus 40 u HS, humolog 20-30 units at meals, 1.8 mg victoza q week. A1C: 7.5% (02/10/22) indicates good glycemic control Has a bethanie 2 continuous glucose monitor. Did not bring monitor with her. Was in ER with blood sugar of > 400 on 02/06/22. Went to ER since injecting insulin did not bring it done. Diet Recall: cereal with fruit, lunch lean cuisine or salad, dinner: lasagne- often has popcorn or cake in evening Annel reports having high readings of blood sugars on her CGM. SHe is frustrated that she does not know the number if its over 350 mg/dl. She has a high reading the other day and took 40 units humolog and it went back down to the 200s in about 2 hours. She has had some hypoglycemia with levels in the 50s- when she forgets to eat. She is here today to figure out how to avoid high blood sugars. We reviewed her meals and made adjustements to lower the carb dose at meals. She does not want to do carb counting but is willing to reduce carb intake at meals. We also discussed that when she wants to have a dessert or popcorn - to eat it , after a meal that does not contain a carb. She reports forgetting to take the victoza. We reviewed its benefits and importance of taking it daily to help regulate her blood sugars. Suspect Annel has high degree of insulin sensitivity and therefore will benefit from a GLP1ra or SGLT2i. Session today also focused on how to correct a high blood sugar with a factor of 1:20 to avoid hypoglycemia. A1C goal for her age and comorbidities is < 8.5%. No follow up planned at this time.
== END 2022-03-04 02:56 | disposition home or self-care (01) ==
PROVIDERS: PCP Nurse Practitioner Family; Visit Provider Dietitian, Registered
DX: E11.9 Type 2 diabetes mellitus without complications (principal); Z79.4 Long term (current) use of insulin; Z71.3 Dietary counseling and surveillance
CPT/HCPCS: 97802

== ENCOUNTER 2022-04-29 08:05 | Outpatient (CLI) | payer MEDICARE, BC, SELFPAY ==
--- NOTE | 2022-04-29 06:00 | DI.RAD_ITS ---
Exam(s) XR PAIN CLINIC FLUORO JOINT IN EXAM: XR PAIN CLINIC FLUORO JOINT IN CLINICAL HISTORY: DX: bilateral knee osteoarthritis. TECHNIQUE: Fluoroscopy was provided for the referring physician for guidance with performing pain cl inic injection procedure. COMPARISON: No exams were available for comparison FINDINGS: Please see procedure note for details. Fluoro time: 55 seconds RADIATION DOSE DELIVERED: guy Delgado=6.6 mGy
[2022-04-29 09:57] VITALS: BP 136/81; PULSE 65; RESP 20; TEMP 36.5; O2SAT 98
--- NOTE | 2022-04-29 11:00 | DI.RAD_ITS ---
Exam(s) XR PAIN CLINIC FLUORO JOINT IN EXAM: XR PAIN CLINIC FLUORO JOINT IN CLINICAL HISTORY: DX: left knee osteoarthritis-(second order per DI). TECHNIQUE: Fluoroscopy was provided for the referring physician for guidance with performing pain cl inic injection procedure. COMPARISON: No exams were available for comparison FINDINGS: Please see procedure note for details. Fluoro time: 110.3 seconds RADIATION DOSE DELIVERED: Ka,r=6.69 mGy
[2022-04-29 11:04] VITALS: PULSE 56; O2SAT 99
[2022-04-29] MEDS: Omnipaque 240 MG/ML 50 ML BTL IJ (11:06)
[2022-04-29] MEDS: Bupivacaine 0.5% Pres-Free 10 ML VIAL IJ (11:07)
--- NOTE | 2022-04-29 11:59 | PDOC.PAIN_ITS ---
Pain Clinic Procedure Note Procedure Note Procedure Note: Bilateral GENICULAR NERVE BLOCK Date of Service: April 29, 2022 Patient: Annel Simeon Provider: Miguel Young DO, MPH Pre-operative diagnosis: Knee pain Post-operative diagnosis: Same Pre-procedure pain: VAS= 6/10 COMMENTS: She was previously evaluated in the office by me on 01/13/22 Annel Simeon has been referred [facility] for bilateral genicular nerve block. Annel was interviewed and the medical record reviewed. There were no medical, pharmacologic, radiographic or other structural contraindications to attempting fluoroscopically guided bilateral genicular nerve blocks. Risks and potential side effects as well as potential benefit of the procedure were reviewed with Annel , and her voiced concerns were addressed. After I believed that the patient was completely informed, the printed consent form was signed. Standard time-out procedure was performed. Annel was placed in the supine position on the fluoroscopy table and automated blood pressure cuff and pulse oximeter applied. The skin entry points for approaching the bilateral superolateral genicular nerve, the superomedial genicular nerve, the terminal branch of the nerve vastus intermedius and the inferomedial genicular was identified under the most advantageous fluoroscopic view and marked. Following thorough Chlorhexadine preparation of the skin and draping, 1% lidocaine infiltration of the skin entry point and subcutaneous tissues was accomplished using a 1.5 25G needle. Next, the 3.5 25G spinal needle was advanced to os at the location of the specific nerve root using fluoroscopic guidance. Next, 1 ml of 1% Lidocaine was injected at each site. The needles were removed without difficulty. Annel's vital signs were stable throughout the procedure and were as recorded in the docflowsheet by the nursing staff. If given, dosages of intravenous drugs for anxiolysis and analgesia were documented in MAR. Follow up plans and appointments were discussed with the Annel . Post procedu re instruction was given as documented in nursing documentation and having met discharge criteria, Annel was [facility] from the [facility]. COMMENTS: No apparent complications. Post-procedure pain: VAS = 0/10. The patient will keep track of her bilateral knee pain over the next four hours. If Annel has sufficient pain relief, Annel will be a candidate for radiofrequency ablation at the same nerves. José Luis WJ1, Ian SJ, Matt HoffmanG, Artie HoffmanG, Quirino GLOVER, Jud PH, Doni JW. Radiofrequency treatment relieves chronic knee osteoarthritis pain: a double-blind randomized controlled trial. Pain. 2011 Nov;152(3):481-7. doi: 10.1016/j.pain.2010.09.029. Makayla S1, Riley ON2, Santana Y3, ?zl?mirtha P2, Chas U1, Eh ?m?rl? I. Which one is more effective for the clinical treatment of chronic pain in knee osteoarthritis: radiofrequency neurotomy of the genicular nerves or intra- articular injection? Int J Rheum Dis. 2016 May 07. F/U with our office with her 1-4 hour post-procedure Pain VAS scores. I personally performed this entire procedure. Miguel Young DO, MPH Attending Physician Pain Management
== END 2022-04-29 08:06 | disposition home or self-care (01) ==
LOC: PC 08:06
PROVIDERS: PCP Nurse Practitioner Family; Visit Provider Preventive Medicine Occupational Medicine
DX: M25.561 Pain in right knee (principal); M25.562 Pain in left knee
CPT/HCPCS: 64454; 77002; Q9967

== ENCOUNTER 2022-05-11 11:00 | Outpatient (CLI) | payer MEDICARE, BC, SELFPAY ==
[2022-05-11 11:41] VITALS: BP 133/78; PULSE 62; RESP 20; TEMP 36.6; O2SAT 96
[2022-05-11] MEDS: fentaNYL 100 MCG/2 ML VIAL IVP (12:14)
[2022-05-11] MEDS: Midazolam 2 MG/2 ML VIAL IVP ×2 (12:14→12:33)
[2022-05-11 12:47] VITALS: BP 118/56; PULSE 62; RESP 14; O2SAT 94
[2022-05-11] MEDS: methylPREDNISolone ACETATE 40 MG/ML VIAL IJ (12:50)
[2022-05-11] MEDS: Bupivacaine 0.5% Pres-Free 10 ML VIAL IJ (12:51)
[2022-05-11] MEDS: Lidocaine 2% Pres-Free 5 ML VIAL IJ (12:52)
[2022-05-11] MEDS: Lactated Ringers 500 ML 80 ML IV (12:55)
--- NOTE | 2022-05-11 13:00 | DI.RAD_ITS ---
Exam(s) XR PAIN CLINIC FLUORO JOINT IN EXAM: XR PAIN CLINIC FLUORO JOINT IN CLINICAL HISTORY: Dx: Osteoarthritis of the knee TECHNIQUE: 2D and realtime digital imaging was performed. Radiologist not present. CONTRAST MATERIAL: None. COMPARISON: No exams were available for comparison FINDINGS: Fluoroscopy was provided for pain management therapy. Please refer to procedure report or details. Cumulative dose: Ka,r=6.75 mGy IMPRESSION: RADIATION DOSE DELIVERED:
--- NOTE | 2022-05-11 13:16 | PDOC.PAIN_ITS ---
Pain Clinic Procedure Note Procedure Note Procedure Note: RIGHT GENICULAR NERVE RADIOFREQUENCY ABLATION WITH THE COOLIEF MACHINE Date of Service: May 11, 2022 Patient: Annel Simeon Provider: Miguel Young DO, MPH Pre-operative diagnosis: Right knee osteoarthritis Post-operative diagnosis: Same Pre-procedure pain VAS = 3/10. COMMENTS: Previous Genicular nerve block to the right knee. Annel Simeon has been referred to the [facility] for right genicular nerve radiofrequency ablation. Annel was interviewed and the medical record reviewed. There were no medical, pharmacologic, radiographic or other structural contraindications to attempting fluoroscopically guided right genicular nerve radiofrequency ablation. Risks and potential side effects as well as potential benefit of the procedure were reviewed with Annel Simeon , and her voiced concerns were addressed. After I believed that the patient was completely informed, the printed consent form was signed. Standard time-out procedure was performed. Annel was placed in the supine position on the fluoroscopy table and automated blood pressure cuff and pulse oximeter applied. The skin entry points for approaching right superolateral genicular nerve, the superomedial genicular nerve and the inferomedial genicular was identified under the most advantageous fluoroscopic view and marked. Following thorough Chlorhexadine preparation of the skin and draping, 1% lidocaine infiltration of the skin entry point and subcutaneous tissues was accomplished using a 1.5 25G needle. Next, the 10 cm 18G RF Cannula with a 10 mm active tip was advanced to os at the location of the specific nerve roots (3) using fluoroscopic guidance. Next, sensory and motor testing was performed and no abnormal findings were found. Next, 1 cc of 2% Lidocaine was injected at each site. The lesion was then created with 80 degrees C for 90 seconds. Each needle was advance 1 cm and the lesion was completed again. Each cannula was advanced until the tip reached the posterior aspect of the bone shaft. 1/3 cc of Depomedrol (40 mg/cc) was then injected at each site followed by 2 cc of 0.5% Bupivacaine as the needle was withdrawn. The needles were removed without difficulty. Annel's vital signs were stable throughout the procedure and were as recorded in the docflowsheet by the nursing staff. If given, dosages of intravenous drugs for anxiolysis and analgesia were documented in MAR. Follow up plans and appointments were discussed with the Annel Simeon . Post procedure instruction was given as documented in nursing documentation and having met discharge criteria, Annel was discharged from the [facility]. COMMENTS: No complications. Ordonez WJ1, Ian SJ, Matt JG, Artie JG, Quirino GLOVER, Park PH, Marion JW. Radiofrequency treatment relieves chronic knee osteoarthritis pain: a double-blind randomized controlled trial. Pain. 2010;152(3):481-7. doi: 10.1016/j.pain.2010.09.029. Makayla S1, Riley ON2, Santana Y3, ?zl?leralexis P2, Chas U1, Eh ?m?rl? I. Which one is more effective for the clinical treatment of chronic pain in knee osteoarthritis: radiofrequency neurotomy of the genicular nerves or intra- articular injection? Int J Rheum Dis. 2016 May 07. Post-procedure pain VAS = 0/10. F/U with our office I personally performed this entire procedure. Miguel Young DO, MPH Attending Physician
== END 2022-05-11 11:01 | disposition home or self-care (01) ==
LOC: PC 11:00
PROVIDERS: PCP Nurse Practitioner Family; Visit Provider Preventive Medicine Occupational Medicine
DX: M17.11 Unilateral primary osteoarthritis, right knee (principal); M25.561 Pain in right knee
CPT/HCPCS: 64624; 77002; J1030; J2250; J3010

== ENCOUNTER 2022-06-18 10:20 | Outpatient (CLI) | payer MEDICARE, BC, SELFPAY ==
[2022-06-18 13:21] LABS: Hemoglobin A1C 7.9 % (<5.7); LDL CHOLESTEROL 71 mg/dL (<100)
== END 2022-06-18 10:21 | disposition home or self-care (01) ==
LOC: LOS 10:20
PROVIDERS: Internal Medicine Endocrinology, Diabetes & Metabolism; PCP Nurse Practitioner Family
DX: E11.65 Type 2 diabetes mellitus with hyperglycemia (principal)
CPT/HCPCS: 36415; 83721; 83036

== ENCOUNTER 2022-08-26 08:34 | Outpatient (CLI) | payer MEDICARE, BC, SELFPAY ==
[2022-08-26 08:44] VITALS: BP 138/75; PULSE 61; RESP 20; TEMP 36.5; O2SAT 100
[2022-08-26] MEDS: Midazolam 2 MG/2 ML VIAL IVP (09:17)
[2022-08-26] MEDS: fentaNYL 100 MCG/2 ML VIAL IVP ×2 (09:17→09:32)
[2022-08-26] MEDS: Lactated Ringers 500 ML 80 ML IV (09:18)
[2022-08-26 09:50] VITALS: BP 139/67; PULSE 66; RESP 18; O2SAT 98
--- NOTE | 2022-08-26 09:51 | DI.RAD_ITS ---
Exam(s) XR PAIN CLINIC FLUORO JOINT IN EXAM: XR PAIN CLINIC FLUORO JOINT IN CLINICAL HISTORY: Dx: Osteoarthritis of the knee TECHNIQUE: 2D and realtime digital imaging was performed. COMPARISON: No exams were available for comparison FINDINGS: C-arm fluoroscopy was utilized by Dr. Young. Please see the procedure note. IMPRESSION: RADIATION DOSE DELIVERED: guy Delgado=4.05 mGy
[2022-08-26] MEDS: methylPREDNISolone ACETATE 40 MG/ML VIAL IJ (10:06)
[2022-08-26] MEDS: Lidocaine 2% Pres-Free 5 ML VIAL IJ (10:06)
[2022-08-26] MEDS: Bupivacaine 0.5% Pres-Free 10 ML VIAL IJ (10:06)
--- NOTE | 2022-08-26 10:09 | PDOC.PAIN ---
Date of service: 08/26/22 Time of Service: 10:12 Pain Clinic Procedure Note Procedure Note Procedure Note: LEFT GENICULAR NERVE RADIOFREQUENCY ABLATION WITH THE COOLIEF MACHINE Date of Service: August 26, 2022 Patient: Annel Simeon Provider: Miguel Young DO, MPH Pre-operative diagnosis: Left knee pain and osteoarthritis Post-operative diagnosis: Same Pre-procedure pain VAS = 5/10 COMMENTS: Previous Genicular nerve block to the LEFT knee. Annel Simeon has been referred to the [facility] for LEFT genicular nerve radiofrequency ablation. Annel was interviewed and the medical record reviewed. There were no medical, pharmacologic, radiographic or other structural contraindications to attempting fluoroscopically guided LEFT genicular nerve radiofrequency ablation. Risks and potential side effects as well as potential benefit of the procedure were reviewed with Annel Simeon , and HER voiced concerns were addressed. After I believed that the patient was completely informed, the printed consent form was signed. Standard time-out procedure was performed. Annel was placed in the supine position on the fluoroscopy table and automated blood pressure cuff and pulse oximeter applied. The skin entry points for approaching LEFT superolateral genicular nerve, the superomedial genicular nerve and the inferomedial genicular was identified under the most advantageous fluoroscopic view and marked. Following thorough Chlorhexadine preparation of the skin and draping, 1% lidocaine infiltration of the skin entry point and subcutaneous tissues was accomplished using a 1.5 25G needle. Next, the 10 cm 18G RF Cannula with a 10 mm active tip was advanced to os at the location of the specific nerve roots (3) using fluoroscopic guidance. Next, sensory and motor testing was performed and no abnormal findings were found. Next, 1 cc of 2% Lidocaine was injected at each site. The lesion was then created with 80 degrees C for 90 seconds. Each needle was advance 1 cm and the lesion was completed again. Each cannula was advanced until the tip reached the posterior aspect of the bone shaft. 1/3 cc of Depomedrol (40 mg/cc) was then injected at each site followed by 2 cc of 0.5% Bupivacaine as the needle was withdrawn. The needles were removed without difficulty. Annel's vital signs were stable throughout the procedure and were as recorded in the docflowsheet by the nursing staff. If given, dosages of intravenous drugs for anxiolysis and analgesia were documented in MAR. Follow up plans and appointments were discussed with the Annel Simeon . Post procedure instruction was given as documented in nursing documentation and having met discharge criteria, Annel was discharged from the [facility]. COMMENTS: No complications. Post-procedure pain VAS = 0/10 José Luis WJ1, Ian SJ, Matt JG, Artie JG, Quirino GLOVER, Jud PH, Doni JW. Radiofrequency treatment relieves chronic knee osteoarthritis pain: a double-blind randomized controlled trial. Pain. 2010;152(3):481-7. doi: 10.1016/j.pain.2010.09.029. Makayla S1, Riley ON2, Santana Y3, ?zl?lerden P2, Chas U1, Eh ?m?rl? I. Which one is more effective for the clinical treatment of chronic pain in knee osteoarthritis: radiofrequency neurotomy of the genicular nerves or intra-articular injection? Int J Rheum Dis. 2016 May 07. F/U with our office as needed. This procedure can be repeated if she gets at least 6 months of pain relief. Miguel Young DO, MPH [employer] [facility] [employer] [facility] [employer]
== END 2022-08-26 08:35 | disposition home or self-care (01) ==
LOC: PC 08:34
PROVIDERS: PCP Nurse Practitioner Family; Visit Provider Preventive Medicine Occupational Medicine
DX: M25.562 Pain in left knee (principal); M17.12 Unilateral primary osteoarthritis, left knee
CPT/HCPCS: 64624; 77002; J1030; J2250; J3010

== ENCOUNTER 2022-09-25 12:18 | Emergency (ER) | payer MEDICARE, BC, SELFPAY ==
[2022-09-25 12:48] VITALS: BP 123/66; PULSE 87; RESP 18; TEMP 36.8; O2SAT 96
--- NOTE | 2022-09-25 13:13 | ED.GENADUL_ITS ---
Discharge Plan Disposition Patient Disposition: Home Condition: Stable Discharge Details Clinical Impression: URI (upper respiratory infection) Primary Care Provider: Nell Felder ED Provider: Danni Moser Home Meds and New Rx's Prescriptions: New guaifenesin [Tussin Mucus-Chest Congestion] 100 mg/5 mL liquid 200 mg PO Q4H PRN (Reason: cough) Qty: 1000 0RF Continued hydrocodone-chlorpheniramine 10-8 mg/5 mL suspension,extended rel 12 hr 5 ml PO Q12H MDD 10ml PRN (Reason: cold symptoms) Qty: 118 0RF docusate sodium [Colace] 100 mg capsule 100 mg PO DAILY PRN (Reason: constipation) (DME) [employer] [place] Misc See Rx Instructions .ROUTE .MEDSUPPLY Qty: 1 Rx Instructions: As directed hydrochlorothiazide 12.5 mg tablet 12.5 mg PO DAILY AM Qty: 90 3RF trazodone 100 mg tablet 100 mg PO HS PRN (Reason: insomnia) Qty: 90 3RF aspirin [Aspir-81] 81 MG tablet,delayed release (DR/EC) 81 mg PO DAILY Label Comments: calcium carbonate [Caltrate 600] 600 MG tablet 600 mg PO PRN Label Comments: Fish Oil 1 EACH capsule 1 ea PO Q3D Label Comments: Rx Instructions: 2X'S WEEK [id number] 1 EACH tablet 1 tab PO DAILY Label Comments: Rx Instructions: Dr Tsang rec polyethylene glycol 3350 [Miralax] 527 GM powder 17 g PO DAILY PRNQty: 1 alcohol swabs [Alcohol Prep Pads] pads, medicated 1 pad TP QID Qty: 400 3RF Rx Instructions: Dx: E11.9 insulin lispro [Humalog KwikPen Insulin] 100 unit/mL insulin pen 20 - 30 unit subcut TID Label Comments: pt states took 5 unitsof humalog in car on way here because her blood sugar was too high, pt reports 280. Rx Instructions: PER SLIDING SCALE before each meal between 6-10 U am,10-30 U pm 05/15/19-[facility] [place] endo note, varies the dose 20-40 units before meals 3 times a day. Sarah Manning APRN 03/13/20 30 units before meals 3 times daily 05/16/20 20-30 U tid 06/19/21 [facility] [place] Endocrinology breakfast 12-18u depending on food choices and BS, and lunch 20-28u depending and food and BS. irbesartan 300 mg tablet 300 mg PO DAILY Qty: 90 3RF insulin glargine [Lantus U-100 Insulin] 100 unit/mL solution 30 unit subcut QHS atorvastatin 40 mg tablet 40 mg PO DAILY Qty: 90 3RF pantoprazole 40 mg tablet,delayed release (DR/EC) 40 mg PO DAILY PRN PRN Label Comments: pt states only takes when she needs it Rx Instructions: Take 40 mg once daily in the morning on an empty stomach, at least 20-30 minutes before meal cholecalciferol (vitamin D3) [Vitamin D3] 1,000 UNIT capsule 1,000 unit PO DAILY No Action hydrocodone-chlorpheniramine 10-8 mg/5 mL suspension,extended rel 12 hr 5 ml PO Q12H PRN MDD 10mL PRN (Reason: severe cough) Qty: 115 0RF Rx Instructions: Use sparingly Discharge Instructions Instructions: Upper Respiratory Infection (ED) Additional Instructions: Your exam is reassuring here today. Likely viral illness. Please continue to encourage hydration. May use Tylenol and/or ibuprofen as needed for discomfort. You may use the constipation as prescribed. If you develop chest pain, shortness of breath, inability stay hydrated or new/worsening symptoms please seek care urgently once again. Please follow-up with your primary care in 2 weeks for reevaluation. Referrals: Nell Felder NP [Primary Care Provider] - Discharge Data Discharge Date/Time-TO BE ENTERED AT DEPARTURE: 09/25/22 14:33 Medical Decision Making Patient is a pleasant 69-year-old female presenting today with chief complaint of cough, congestion and diarrhea x5 days. States that overall the diarrhea is improving. She has had 2 bowel movements today, none of these have been nonbloody. She denies any abdominal pain. Denies any fevers or chills. States that she has had some nasal congestion. Overall, symptoms sound to be improving. She presents as she continues to have synmptoms 5 days into her illness. No recent travel. PMH pertinent for DM type 2, anxiety, GERD, HTN, RA. On exam, patient appears nontoxic. VS WNL. Her lungs are clear. Normal cardiac exam. No lower extremity edema. Posterior oropharynx is mildly erythematous but otherwise HEENT exam is within normal limits. Discussed findings with patient. She likely has viral illness. Had elevated glucose at 200 today but this is expected with illness and she is not exhibiting signs of DKA. She voices good understanding of her DM and has been monitoring this. Her last A1C was 7.9 which would suggest her normal be right around this as well. I do not see need for further intervention at this time. She has been hydrating well. Was negative for COVID and flu today with PCP. I do not see evidence of respiratory compromise or work of breathing. Lungs were clear and with her course thus far, I find bacterial pneumonia unlikely. Patient and I discussed supportive care. We discussed importance of hydration, importance of monitoring her glucose. Discussed OTC medications that may help with symptomatic management. Strict return precautions discussed. All of her questions and concerns were addressed, she is in agreement with this plan. HPI General Date/Time Provider Initiated Documentation: 09/25/22 13:13 . Limitations to Documentation: no limitations . Information obtained by: patient, RN notes reviewed and old records reviewed . History of Present Illness 77 year old F presents to the emergency department with the chief complaint of URI, cough, congestion, diarrhea, described as mild (symptoms are improving, she denies any pain), Patient started experiencing this day(s) (5) and it has been constant (symptoms are somewhat improving). No relieving factors improve symptom(s), No exacerbating factors reported . Patient notes cough and malaise; denies chest pain, fever/chills, loss of appetite, nausea/vomiting (diarrhea subsiding), rash and shortness of breath. Patient did receive the following treatments prior to arrival, none Related Data Home Medications Medication Instructions Recorded Confirmed aspirin 81 mg tablet,delayed 81 mg PO DAILY 12/15/12 09/28/22 release (Aspir-) calcium carbonate 600 mg calcium 600 mg PO PRN 12/15/12 09/28/22 (1,500 mg) tablet (Caltrate 600) glucosamine 750 [id number] 1 tab PO DAILY 12/15/12 09/28/22 no.1 625 mg-C 30 yh-liab-[id number] tablet omega-3 fatty acids-fish oil 340 1 ea PO Q3D 12/15/12 09/28/22 mg-1,000 mg capsule (Fish Oil) polyethylene glycol 3350 17 17 g PO DAILY PRN ##1 12/02/14 09/28/22 gram/dose oral powder (Miralax) cholecalciferol (vitamin D3) 25 1,000 unit PO DAILY 10/26/17 09/28/22 mcg (1,000 unit) capsule (Vitamin D3) alcohol swabs (Alcohol Prep Pads) 1 pad topical QID To cleanse skin 09/13/18 09/28/22 prior to insulin injections QID. #400 ea pantoprazole 40 mg tablet,delayed 40 mg PO DAILY PRN PRN 05/10/20 09/28/22 release docusate sodium 100 mg capsule 100 mg PO DAILY PRN constipation 06/19/21 09/28/22 (Colace) flash glucose scanning reader #1 ea 06/19/21 09/28/22 (F[employer]ix [place] 2 [place]) insulin lispro 100 unit/mL 20 - 30 unit subcut TID 06/25/21 09/28/22 subcutaneous pen (Humalog KwikPen (U-100) Insulin) irbesartan 300 mg tablet 300 mg PO DAILY #90 tab-caps 09/23/21 09/28/22 hydrocodone 10 mg-chlorpheniramine 5 ml PO Q12H PRN cold symptoms 09/28/21 09/28/22 8 mg/5 mL oral susp extend.rel 12hr #118 mL hydrochlorothiazide 12.5 mg tablet 12.5 mg PO DAILY AM #90 tab-caps 12/24/21 09/28/22 trazodone 100 mg tablet 100 mg PO HS PRN insomnia #90 12/24/21 09/28/22 tab-caps insulin glargine 100 unit/mL 30 unit subcut QHS 07/02/22 09/28/22 subcutaneous solution (Lantus U-100 Insulin) atorvastatin 40 mg tablet 40 mg PO DAILY #90 tab-caps 09/01/22 09/28/22 guaifenesin 100 mg/5 mL oral 200 mg (10 mL) PO Q4H PRN cough 09/25/22 09/28/22 liquid (Tussin Mucus-Chest #1,000 mL Congestion) hydrocodone 10 mg-chlorpheniramine 5 ml PO Q12H PRN PRN severe cough 09/28/22 09/28/22 8 mg/5 mL oral susp extend.rel 12hr #115 mL Previous Rx's Medication Instructions Recorded alcohol swabs (Alcohol Prep Pads) 1 pad topical QID To cleanse skin 09/13/18 prior to insulin injections QID. #400 ea irbesartan 300 mg tablet 300 mg PO DAILY #90 tab-caps 09/23/21 hydrocodone 10 mg-chlorpheniramine 5 ml PO Q12H PRN cold symptoms 09/28/21 8 mg/5 mL oral susp extend.rel 12hr #118 mL hydrochlorothiazide 12.5 mg tablet 12.5 mg PO DAILY AM #90 tab-caps 12/24/21 trazodone 100 mg tablet 100 mg PO HS PRN insomnia #90 12/24/21 tab-caps atorvastatin 40 mg tablet 40 mg PO DAILY #90 tab-caps 09/01/22 guaifenesin 100 mg/5 mL oral 200 mg (10 mL) PO Q4H PRN cough 09/25/22 liquid (Tussin Mucus-Chest #1,000 mL Congestion) hydrocodone 10 mg-chlorpheniramine 5 ml PO Q12H PRN PRN severe cough 09/28/22 8 mg/5 mL oral susp extend.rel 12hr #115 mL Allergies Allergy/AdvReac Type Severity Reaction Status Date / Time enalapril AdvReac Intermediate cough Verified 09/25/22 12:59 codeine AdvReac N/V Verified 09/25/22 12:59 liraglutide AdvReac Other (See Verified 09/25/22 12:59 Comment) Sulfa (Sulfonamide AdvReac NAUSEA Verified 09/25/22 12:59 Antibiotics) General Stated Complaint: RespSymp PIERCE: 3 Review of Systems Constitutional Constitutional: Reports as per HPI and Denies headache(s) Eyes Eyes: Reports as per HPI, Denies eye discharge and Denies irritation ENT Ears, Nose, Mouth, and Throat: Reports as per HPI and Denies headache(s) Cardiovascular Cardiovascular: Reports as per HPI, Denies chest pain and Denies dyspnea Respiratory Respiratory: Reports as per HPI and Denies dyspnea Gastrointestinal Gastrointestinal: Reports as per HPI, Denies abdominal pain, Denies nausea and Denies vomiting Integumentary/Breasts Skin/Breast: Reports as per HPI and Denies rash Neurologic Neurologic: Reports as per HPI and Denies headache(s) PFSH All Active Problems (Updated 09/28/22 @ 12:22 by Demetra Hughes DO) Cough (Acute) URI (upper respiratory infection) (Acute) Foot pain, right (Acute) Nail dystrophy (Acute) Elevated LFTs (Acute) Osteoarthritis of left knee (Acute) Steroid Injection: 08/03/2021 Arthritis of right knee (Acute) DEPO injection 07/29/21 Type 2 diabetes mellitus with retinopathy of both eyes, with long-term current use of insulin (Chronic) [facility] [place] Endo manages 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 Arthralgia (Acute 11/23/11) Intractable migraine with status migrainosus (Acute 11/23/11) Anxiety (Chronic) GERD (gastroesophageal reflux disease) (Chronic) Essential hypertension (Chronic) Sleep disturbance, unspecified (Chronic 09/26/07) heavy snoring, declined 05/2011, delined 06/2018 Lumbago (Chronic 07/21/12) Other and unspecified hyperlipidemia (Chronic 11/23/11) Lipoma of back (Chronic 04/12/16) MRI confirmed 2016 (not bothersome) Asymptomatic varicose veins (Chronic 03/06/12) DONALD LEFT LEG Medical History Plantar fasciitis of right foot Retinal hemorrhage (11/23/11) Surgical History Adenoidectomy Arthroplasty of knee Biopsy of breast 1984 L benign Cholecystectomy Colonoscopy - MAC (10/31/17) Excision, Lipoma (11/17/17) left upper shoulder Flex laryngoscopy (07/31/15) History of total abdominal hysterectomy and bilateral salpingo-oophorectomy (~1969) Oophrectomy, Left 1970's Family History Other Heart disease Hypothyroidism Mental disorder Social History Smoking/Tobacco Use Status: Former Tobacco Use tobacco type: cigarettes Quit Date: 09/26/86 Tobacco: How many years used: 15 Smoking risk assessment performed?: Yes Alcohol Intake: current Alcohol Intake frequency: holidays/special occasions only Drug use: Never Substance use type: does not use Caregiver/Support person: No Household members: spouse Housing: house Number of Children: 2 Communication Needs: None Pets and animals: No Current gender identity: female What type of physical activity do you participate in: none Seatbelt use: always Do you feel safe at home: Yes Do you feel safe in your relationship?: Yes Exam Const General: cooperative, healthy appearing, comfortable, no acute distress, well developed and well groomed Nutritional Appearance: average body habitus and well nourished Orientation: alert and awake [facility] Head: normal to inspection, normocephalic and atraumatic Ears: hearing grossly normal bilaterally, external ears normal and TM's normal bilaterally General nose exam: external nose normal and nares normal Face and sinus: normal facial exam, sinuses nontender and face symmetric Mouth: oral mucosae normal, lip normal, tongue normal, oropharynx normal and moist mucous membranes Teeth and gingiva: dentition normal Throat: posterior oropharynx abnormal (mild erythema), tonsils normal and uvula midline Eyes General: appearance normal, both eyes and all related structures Neck Neck: normal visual inspection, full ROM, no lymphadenopathy and no meningeal signs Resp Effort & Inspection: normal respiratory effort, able to speak in complete sentences and no respiratory distress Auscultation: clear to auscultation bilaterally, no rales, no rhonchi and no wheezes Cardio Rate: regular rate Rhythm: regular rhythm Heart Sounds: S1 normal and S2 normal GI Inspection: normal to inspection Palpation: soft, no guarding, not rigid and nontender Skin General skin exam: no rashes or lesions noted Neuro General: patient alert and patient awake Cognition: normal cognition Speech: speech normal Gait: normal gait Extrem General: normal to inspection, no pedal edema and no calf tenderness Psych Appearance: grossly normal and well kempt Mental Status: mental status grossly normal Speech and Movement: speech and movement normal Course Vital Signs Vital signs: Vital Signs Temperature 36.8 C 09/25/22 12:48 Pulse 87 09/25/22 12:48 Respiratory Rate 18 09/25/22 12:48 Blood Pressure 123/66 09/25/22 12:48 Pulse Oximetry 96 09/25/22 12:48 Temperature 36.8 C 09/25/22 12:48 Temperature Source Tympanic 09/25/22 12:48 Pulse 87 09/25/22 12:48 Respiratory Rate 18 09/25/22 12:48 Respiratory Effort Non-Labored 09/25/22 13:04 Respiratory Depth Normal 09/25/22 13:04 Blood Pressure 123/66 09/25/22 12:48 Blood Pressure Position Sitting 09/25/22 12:48 Pulse Oximetry 96 09/25/22 12:48 Oxygen Delivery Method Room Air 09/25/22 12:48 Oxygen Flow Rate 0 09/25/22 12:48 Pain Level 0 09/25/22 12:48
[2022-09-25 14:27] VITALS: BP 124/78; PULSE 68; RESP 19; TEMP 36.9; O2SAT 93
== END 2022-09-25 14:33 | disposition home or self-care (01) ==
PROVIDERS: Emergency Provider Physician Assistant; PCP Nurse Practitioner Family
DX: J06.9 Acute upper respiratory infection, unspecified (principal); E11.65 Type 2 diabetes mellitus with hyperglycemia; I10 Essential (primary) hypertension
CPT/HCPCS: 99283

== ENCOUNTER 2022-10-07 15:24 | Outpatient (CLI) | payer MEDICARE, BC, SELFPAY ==
[2022-10-07 15:18] LABS: Abs Immature Grans 0.02 10^3/uL (0.0-0.06); Absolute Basophil Count 0.06 10^3/uL (0.0-0.2); Absolute Eosinophil Count 0.18 10^3/uL (0.0-0.7); Absolute Lymphocyte Count 2.28 10^3/uL (1.2-3.4); Absolute Monocyte Count 0.75 10^3/uL (0.1-0.8); Absolute Neutrophil Count 4.81 10^3/uL (1.2-6.7); Basophils % 0.7; Eosinophils % 2.2; HCT 41.7 % (36.0-46.0); HGB 14.2 g/dL (11.2-15.7); Immature Grans % 0.2; Lymphocytes % 28.1; MCH 30.7 pg (27.0-33.0); MCHC 34.1 % (32.0-36.0); MCV 90 fL (80-95); MPV 9.5 fL (8.0-11.0); Monocytes % 9.3; Neutrophils % 59.5; Platelet Count 332 10^3/uL (130-400); RBC 4.63 10^6/uL (3.93-5.22); RDW 12.2 % (11.7-14.6); RDW-SD 40.3 fL
[2022-10-07 15:46] LABS: ALT 40 U/L (14-59); AST 54 U/L (15-37); Albumin 3.5 g/dL (3.4-5.0); Alkaline Phosphatase 102 U/L (46-116); Anion Gap 7.3 mmol/L (3-11); BUN 15 mg/dL (7-18); Bilirubin, Total 0.7 mg/dL (0.2-1.0); CO2 28.7 mmol/L (21.0-32.0); CREATININE 1.1 mg/dL (0.55-1.02); Calcium 9.3 mg/dL (8.5-10.1); Chloride 103 mmol/L (98-107); Estimated GFR 51.43 (mL/min/1.73m2); Glucose 62 mg/dL (74-106); Magnesium 1.9 mg/dL (1.8-2.4); Potassium 3.2 mmol/L (3.5-5.1); Sodium 139 mmol/L (136-145); Total Protein 7.5 g/dL (6.4-8.2)
== END 2022-10-07 15:25 | disposition home or self-care (01) ==
LOC: LBO 15:25
PROVIDERS: PCP Nurse Practitioner Family; Visit Provider Student in an Organized Health Care Education/Training Program
DX: I10 Essential (primary) hypertension (principal); E11.39 Type 2 diabetes mellitus with other diabetic ophthalmic complication; Z79.4 Long term (current) use of insulin; E86.0 Dehydration; R19.7 Diarrhea, unspecified; R79.89 Other specified abnormal findings of blood chemistry
CPT/HCPCS: 36415; 80053; 83735; 85025

== ENCOUNTER 2022-10-08 10:18 | Outpatient (REF) | payer MEDICARE, BC, SELFPAY ==
[2022-10-08 09:47] LABS: C Diff PCR Negative (Negative)
== END 2022-10-08 10:19 | disposition home or self-care (01) ==
LOC: LBN 10:18
PROVIDERS: PCP Nurse Practitioner Family; Visit Provider Student in an Organized Health Care Education/Training Program
DX: R19.7 Diarrhea, unspecified (principal)
CPT/HCPCS: 87493; 82272

== ENCOUNTER 2022-10-21 02:32 | Outpatient (CLI) | payer MEDICARE, BC, SELFPAY ==
[2022-10-21 13:52] LABS: Anion Gap 7.1 mmol/L (3-11); BUN 22 mg/dL (7-18); CO2 29.9 mmol/L (21.0-32.0); CREATININE 1.4 mg/dL (0.55-1.02); Calcium 9.9 mg/dL (8.5-10.1); Chloride 102 mmol/L (98-107); Estimated GFR 38.51 (mL/min/1.73m2); Glucose 169 mg/dL (74-106); Magnesium 1.9 mg/dL (1.8-2.4); Potassium 4.2 mmol/L (3.5-5.1); Sodium 139 mmol/L (136-145)
== END 2022-10-21 02:33 | disposition home or self-care (01) ==
LOC: LBO 02:32
PROVIDERS: PCP Nurse Practitioner Family; Referring Provider Student in an Organized Health Care Education/Training Program; Visit Provider Student in an Organized Health Care Education/Training Program
DX: I10 Essential (primary) hypertension (principal); E87.6 Hypokalemia; R19.7 Diarrhea, unspecified
CPT/HCPCS: 36415; 80048; 83735

== ENCOUNTER 2022-11-11 02:20 | Outpatient (CLI) | payer MEDICARE, BC, SELFPAY ==
[2022-11-11 09:51] LABS: Anion Gap 8.4 mmol/L (3-11); BUN 20 mg/dL (7-18); CO2 29.6 mmol/L (21.0-32.0); CREATININE 1.1 mg/dL (0.55-1.02); Calcium 9.3 mg/dL (8.5-10.1); Chloride 99 mmol/L (98-107); Estimated GFR 51.43 (mL/min/1.73m2); Glucose 217 mg/dL (74-106); Potassium 4.4 mmol/L (3.5-5.1); Sodium 137 mmol/L (136-145)
== END 2022-11-11 02:21 | disposition home or self-care (01) ==
LOC: LBO 02:21
PROVIDERS: Student in an Organized Health Care Education/Training Program; Absent Provider Nurse Practitioner Family; PCP Nurse Practitioner Family; Referring Provider Nurse Practitioner Family; Visit Provider Nurse Practitioner Family
DX: E86.0 Dehydration (principal); N17.9 Acute kidney failure, unspecified; R19.7 Diarrhea, unspecified
CPT/HCPCS: 36415; 80048; 83721; 82043; 82565; 82570; 83036

== ENCOUNTER 2022-12-15 03:01 | Outpatient (CLI) | payer MEDICARE, BC, SELFPAY ==
[2022-12-15 09:07] LABS: Hemoglobin A1C 8.5 % (<5.7)
[2022-12-15 10:01] LABS: CREATININE 1.1 mg/dL (0.55-1.02); Estimated GFR 51.43 (mL/min/1.73m2)
[2022-12-15 10:08] LABS: COMMENT (LAB VIEW ONLY) 28.24 mg/dL; Microalb ug/mg Crea 13.5 ug/mg Cr
[2022-12-15 10:35] LABS: Calculated LDL 56 mg/dL (<100); Cholesterol 168 mg/dL (<200); HDL Cholesterol 95 mg/dL (40-60); Triglyceride 88 mg/dL (<150)
== END 2022-12-15 03:02 | disposition home or self-care (01) ==
LOC: LBO 03:03
PROVIDERS: Internal Medicine Endocrinology, Diabetes & Metabolism; PCP Nurse Practitioner Family; Visit Provider Nurse Practitioner Family
DX: E11.65 Type 2 diabetes mellitus with hyperglycemia (principal); E78.5 Hyperlipidemia, unspecified
CPT/HCPCS: 36415; 80061; 82043; 82565; 82570; 83036

== ENCOUNTER → 2023-05-20 08:16 | Outpatient (BNVA) | payer MEDICARE, BC, SELFPAY | PROVIDERS: PCP Nurse Practitioner Family; Referring Provider Nurse Practitioner Family; Visit Provider Physical Therapy Assistant | DX: I73.9 Peripheral vascular disease, unspecified (principal) | CPT/HCPCS: 93922 ==

== ENCOUNTER → 2023-07-22 00:52 | Outpatient (CLI) | payer MEDICARE, BC, SELFPAY ==
--- NOTE | 2023-07-22 10:04 | DI.RAD_ITS ---
Exam(s) XR ANKLE RT COMPLETE EXAM: XR ANKLE RT COMPLETE CLINICAL HISTORY: Pain in right ankle,M25.571. TECHNIQUE: 2D digital imaging was performed. Three views. COMPARISON: No exams were available for comparison FINDINGS: BONES: No acute fracture is present. Cystic areas are noted in the talar dome, both medially and lat erally. No collapse at the articular surface. Heel spurs. JOINTS: The ankle mortise is normally aligned. Ankle joint space is maintained. SOFT TISSUE: Vascular calcifications. IMPRESSION: Subchondral cysts at the talar dome. Heel spurs. DATA REPOSITORY: RADIATION DOSE DELIVERED:
--- NOTE | 2023-07-22 10:04 | DI.RAD_ITS ---
Exam(s) XR ANKLE LT COMPLETE EXAM: XR ANKLE LT COMPLETE CLINICAL HISTORY: Pain in left ANKLE,M25.572 TECHNIQUE: 2D digital imaging was performed. Three views. COMPARISON: CR XR ANKLE RT COMPLETE from 07/22/2023 FINDINGS: BONES: No acute fracture is present. No bony destructive lesion is seen. Heel spurs. JOINTS:The ankle mortise is normally aligned. Tibiotalar joint space is maintained. SOFT TISSUE: Swelling around both malleoli. Soft tissue calcifications. Vascular calcifications. IMPRESSION: Heel spurs. Soft tissue swelling. DATA REPOSITORY: RADIATION DOSE DELIVERED:
--- NOTE | 2023-07-22 10:04 | DI.RAD_ITS ---
Exam(s) XR FOOT RT COMPLETE EXAM: XR FOOT RT COMPLETE CLINICAL HISTORY: Pain in right foot,M79.671. TECHNIQUE: 2D digital imaging was performed. Three views. COMPARISON: CR XR ANKLE RT COMPLETE from 07/22/2023 CR XR FOOT LT COMPLETE from 07/22/2023 FINDINGS: BONES: No acute fracture is present. No bony destructive lesion is seen. Heel spurs. JOINTS: No dislocation present. Mild degenerative changes 1st MTP joint. SOFT TISSUE: Vascular calcifications. IMPRESSION: Mild 1st MTP joint degenerative changes. DATA REPOSITORY: RADIATION DOSE DELIVERED:
--- NOTE | 2023-07-22 10:04 | DI.RAD_ITS ---
Exam(s) XR FOOT LT COMPLETE EXAM: XR FOOT LT COMPLETE CLINICAL HISTORY: Pain in left foot,M25.572. TECHNIQUE: 2D digital imaging was performed. Three views. COMPARISON: No exams were available for comparison FINDINGS: BONES: No acute fracture is present. No bony destructive lesion is seen. Small heel spurs. JOINTS: No dislocation present. Degenerative changes interphalangeal joints of the 2nd and 3rd toes a s well as at the tarsal metatarsal joints. SOFT TISSUE: Vascular calcifications. IMPRESSION: Degenerative changes tarsal metatarsal joints. DATA REPOSITORY: RADIATION DOSE DELIVERED:
== END ==
PROVIDERS: PCP Nurse Practitioner Family; Visit Provider Podiatrist
DX: M19.071 Primary osteoarthritis, right ankle and foot (principal); M19.072 Primary osteoarthritis, left ankle and foot; M77.32 Calcaneal spur, left foot; M77.31 Calcaneal spur, right foot; M85.671 Other cyst of bone, right ankle and foot
CPT/HCPCS: 73610; 73630

== ENCOUNTER → 2023-08-11 10:14 | Outpatient (BNVA) | payer MEDICARE, BC, SELFPAY | PROVIDERS: PCP Nurse Practitioner Family; Referring Provider Nurse Practitioner Family; Visit Provider Podiatrist | DX: M25.571 Pain in right ankle and joints of right foot (principal); M25.572 Pain in left ankle and joints of left foot; I73.9 Peripheral vascular disease, unspecified; E11.319 Type 2 diabetes mellitus with unspecified diabetic retinopathy without macular edema; Z79.4 Long term (current) use of insulin; M79.671 Pain in right foot | CPT/HCPCS: 99213 ==

== ENCOUNTER → 2023-11-24 11:05 | Outpatient (BNVA) | payer MEDICARE, BC, SELFPAY | PROVIDERS: PCP Nurse Practitioner Family; Referring Provider Nurse Practitioner Family; Visit Provider Podiatrist | DX: L60.3 Nail dystrophy (principal); R60.0 Localized edema; I73.9 Peripheral vascular disease, unspecified; M79.671 Pain in right foot; E11.319 Type 2 diabetes mellitus with unspecified diabetic retinopathy without macular edema; M79.672 Pain in left foot; Z79.4 Long term (current) use of insulin; R09.89 Other specified symptoms and signs involving the circulatory and respiratory systems; R23.8 Other skin changes | CPT/HCPCS: 11719; 11720 ==

== ENCOUNTER 2024-01-17 04:59 | Outpatient (CLI) | payer MEDICARE, BC, SELFPAY ==
[2024-01-17 08:30] LABS: ALT 111 U/L (14-59); AST 99 U/L (15-37); Albumin 3.6 g/dL (3.4-5.0); Alkaline Phosphatase 85 U/L (46-116); Anion Gap 7.4 mmol/L (3-11); BUN 23 mg/dL (7-18); Bilirubin, Total 0.7 mg/dL (0.2-1.0); CO2 27.6 mmol/L (21.0-32.0); CREATININE 1.3 mg/dL (0.55-1.02); Calcium 9.5 mg/dL (8.5-10.1); Calculated LDL 45 mg/dL (<100); Chloride 105 mmol/L (98-107); Cholesterol 134 mg/dL (<200); Estimated GFR 41.83 (mL/min/1.73m2); Glucose 159 mg/dL (74-106); HDL Cholesterol 77 mg/dL (40-60); Potassium 4.2 mmol/L (3.5-5.1); Sodium 140 mmol/L (136-145); TSH (W/Ref FT4) 3.75 uIU/mL (0.36-3.74); Total Protein 6.9 g/dL (6.4-8.2); Triglyceride 64 mg/dL (<150); Vitamin B12 548 pg/mL (193-986)
[2024-01-17 08:46] LABS: FREE T4 1.09 ng/dL (0.76-1.46)
== END 2024-01-17 05:00 | disposition home or self-care (01) ==
LOC: LBO 04:59
PROVIDERS: PCP Nurse Practitioner Family; Visit Provider Nurse Practitioner
DX: I10 Essential (primary) hypertension (principal); E11.319 Type 2 diabetes mellitus with unspecified diabetic retinopathy without macular edema; Z79.4 Long term (current) use of insulin; N18.31 Chronic kidney disease, stage 3a; E78.5 Hyperlipidemia, unspecified
CPT/HCPCS: 36415; 80053; 80061; 82607; 84439; 84443

== ENCOUNTER → 2024-01-20 00:23 | Outpatient (CLI) | payer MEDICARE, BC, SELFPAY ==
--- NOTE | 2024-01-20 06:45 | DI.US_ITS ---
Exam(s) US ABDOMEN EXAM: US ABDOMEN CLINICAL HISTORY: elevated lft's,r79.89 TECHNIQUE: Ultrasound abdomen performed using standard protocol. COMPARISON: CT CT CHEST PE CTA from 05/10/2020 US US ABDOMEN from 02/05/2022 FINDINGS: ABDOMINAL AORTA AND IVC: Visualized portions normal caliber. PANCREAS: Normal where visualized. LIVER: Normal. Hepatopetal flow in the Portal Vein. The liver measures 13.4 cm in length. GALLBLADDER:The gallbladder is not visualized. This may be due to prior cholecystectomy. Please cor relate with patient's surgical history. BILIARY SYSTEM: Common bile duct measures < 7 mm. No intrahepatic biliary ductal dilation. KIDNEYS: Kidneys are symmetric in size. No evidence of renal calculi. No evidence of hydronephrosis. No renal mass or cyst identified. SPLEEN: Not enlarged. ASCITES: None seen. IMPRESSION: No acute abdominal process. No evidence of hepatomegaly. No biliary ductal dilatation. DATA REPOSITORY:
== END ==
PROVIDERS: PCP Nurse Practitioner Family; Visit Provider Nurse Practitioner
DX: R79.89 Other specified abnormal findings of blood chemistry (principal)
CPT/HCPCS: 76700

== ENCOUNTER 2024-01-20 09:28 | Outpatient (CLI) | payer MEDICARE, BC, SELFPAY ==
[2024-01-20 10:16] LABS: ALT 144 U/L (14-59); AST 119 U/L (15-37); Albumin 3.9 g/dL (3.4-5.0); Alkaline Phosphatase 92 U/L (46-116); Bilirubin, Direct 0.3 mg/dL (0.0-0.2); Bilirubin, Total 0.9 mg/dL (0.2-1.0)
[2024-01-20 20:41] LABS: Hepatitis C Ab w Rflx HCV PCR Negative (Negative)
== END 2024-01-20 09:29 | disposition home or self-care (01) ==
LOC: LBO 09:28
PROVIDERS: PCP Nurse Practitioner Family; Visit Provider Nurse Practitioner
DX: R79.89 Other specified abnormal findings of blood chemistry (principal); R74.8 Abnormal levels of other serum enzymes
CPT/HCPCS: 36415; 80076; 86803; 76700

== ENCOUNTER 2024-01-27 08:47 | Outpatient (CLI) | payer MEDICARE, BC, SELFPAY ==
--- NOTE | 2024-01-27 08:30 | DI.RAD_ITS ---
Exam(s) XR KNEE RT 1V EXAM: XR KNEE RT 1V CLINICAL HISTORY: OA R KNEE. TECHNIQUE: 2D digital imaging was performed. COMPARISON: CR XR KNEE LT 3V AP,LAT,ASIM from 08/03/2021 CR XR STANDING ALIGNMENT from 01/27/2024 FINDINGS: Single lateral view of the right knee: No fracture evident. There appears to be some increased joint fluid. Advanced narrowing of the medi al compartment noted. Also posteriorly there are bony excrescences evident on the posterior aspects of both femoral condyles. The larger measures approximately 1.5 x 1.0 cm. Bone density normal. No osseous lesions. IMPRESSION: Significant degenerative changes. Joint effusion. DATA REPOSITORY: RADIATION DOSE DELIVERED:
--- NOTE | 2024-01-27 08:30 | DI.RAD_ITS ---
Exam(s) XR STANDING ALIGNMENT EXAM: XR STANDING ALIGNMENT CLINICAL HISTORY: OA L KNEE. TECHNIQUE: 2D digital imaging was performed. COMPARISON: No exams were available for comparison FINDINGS: 3 views There are no fractures. There is relatively symmetric advanced [id number] narrowing of the medial compartments of both knees. Also marginal osteophytes off both medial compartments. Lateral compart ments of both knees exhibit normal height. Hips appear unremarkable. Ankles unremarkable. Bone density normal. No osseous lesions. IMPRESSION: Advanced [id number] narrowing of the medial compartments of both knees. DATA REPOSITORY: RADIATION DOSE DELIVERED:
--- NOTE | 2024-01-27 08:30 | DI.RAD_ITS ---
Exam(s) XR KNEE LT 1V EXAM: XR KNEE LT 1V CLINICAL HISTORY: OA L KNEE. TECHNIQUE: 2D digital imaging was performed. COMPARISON: CR XR STANDING ALIGNMENT from 01/27/2024 CR XR KNEE RT 1V from 01/27/2024 FINDINGS: Single lateral view of the left knee: No evidence of fracture but there is a joint effusion. There is advanced narrowing of the medial com partment. Also some degenerative change in the patellofemoral compartment. Posteriorly there is a p rominent bony excrescence off the posterior aspect of 1 of the femoral condyles. This measures appro ximately 1.5 x 1.0 cm. No lytic nor blastic osseous lesions. IMPRESSION: Degenerative changes as described above. DATA REPOSITORY: RADIATION DOSE DELIVERED:
== END 2024-01-27 08:48 | disposition home or self-care (01) ==
LOC: DIORS 08:47
PROVIDERS: PCP Nurse Practitioner; Referring Provider Nurse Practitioner; Visit Provider Physician Assistant
DX: M17.12 Unilateral primary osteoarthritis, left knee (principal); M17.11 Unilateral primary osteoarthritis, right knee
CPT/HCPCS: 20610; J1010; 73560; 77073

== ENCOUNTER 2024-01-27 10:34 | Outpatient (CLI) | payer MEDICARE, BC, SELFPAY ==
[2024-01-27 10:17] LABS: ALT 152 U/L (14-59); AST 117 U/L (15-37); Albumin 3.7 g/dL (3.4-5.0); Alkaline Phosphatase 88 U/L (46-116); Bilirubin, Direct 0.2 mg/dL (0.0-0.2); Bilirubin, Total 0.7 mg/dL (0.2-1.0); Total Protein 7.2 g/dL (6.4-8.2)
[2024-01-27 19:18] LABS: Hepatitis A Antibody IgM Negative (Negative); Hepatitis B Core Antibody Negative (Negative); Hepatitis B surface Ag Negative (Negative); Hepatitis C Ab w Rflx HCV PCR Negative (Negative)
[2024-01-30 15:10] LABS: ANA Interpretation Positive (Negative); ANA Titer Pattern 1:320 Homogeneous
== END 2024-01-27 10:35 | disposition home or self-care (01) ==
LOC: LBO 10:34
PROVIDERS: PCP Nurse Practitioner; Visit Provider Nurse Practitioner
DX: R79.89 Other specified abnormal findings of blood chemistry (principal); R74.8 Abnormal levels of other serum enzymes
CPT/HCPCS: 20610; 36415; 80076; 86704; 86709; 86803; 87340; J1010; 73560; 77073; 86038

== ENCOUNTER 2024-02-06 13:58 | Outpatient (CLI) | payer MEDICARE, BC, SELFPAY ==
[2024-02-06 09:36] LABS: ALT 74 U/L (14-59); AST 52 U/L (15-37); Albumin 3.4 g/dL (3.4-5.0); Alkaline Phosphatase 90 U/L (46-116); Bilirubin, Direct 0.2 mg/dL (0.0-0.2); Bilirubin, Total 0.7 mg/dL (0.2-1.0); Total Protein 6.8 g/dL (6.4-8.2)
[2024-02-07 09:36] LABS: IgG 837 mg/dL (610-1616)
[2024-02-09 12:40] LABS: Mitochondrial Ab, M2 <0.1 U
[2024-02-09 12:54] LABS: Smooth Muscle Ab Screen Negative (Negative)
[2024-02-09 17:03] LABS: Liver/Kidney Microsome Type 1 <5.0 U
== END 2024-02-06 13:59 | disposition home or self-care (01) ==
LOC: LBO 13:59
PROVIDERS: PCP Nurse Practitioner; Visit Provider Nurse Practitioner
DX: R79.89 Other specified abnormal findings of blood chemistry (principal); R74.01 Elevation of levels of liver transaminase levels; R76.8 Other specified abnormal immunological findings in serum; N18.9 Chronic kidney disease, unspecified; I10 Essential (primary) hypertension; E78.5 Hyperlipidemia, unspecified; F41.8 Other specified anxiety disorders
CPT/HCPCS: 36415; 80076; 82784; 83516; 86255

== ENCOUNTER 2024-03-05 05:56 | Outpatient (CLI) | payer MEDICARE, BC, SELFPAY ==
[2024-03-05 11:47] LABS: HCT 46.5 % (36.0-46.0); HGB 15.6 g/dL (11.2-15.7); MCH 31.1 pg (27.0-33.0); MCHC 33.5 % (32.0-36.0); MCV 93 fL (80-95); MPV 9.5 fL (8.0-11.0); Platelet Count 252 10^3/uL (130-400); RBC 5.02 10^6/uL (3.93-5.22); RDW 12.9 % (11.7-14.6); RDW-SD 43.4 fL; WBC 6.04 10^3/uL (4.4-10.8)
[2024-03-05 11:57] LABS: Anion Gap 7.2 mmol/L (3-11); BUN 24 mg/dL (7-18); CO2 31.8 mmol/L (21.0-32.0); CREATININE 1.3 mg/dL (0.55-1.02); Calcium 10.3 mg/dL (8.5-10.1); Chloride 100 mmol/L (98-107); Estimated GFR 41.83 (mL/min/1.73m2); Glucose 147 mg/dL (74-106); Potassium 3.8 mmol/L (3.5-5.1); Sodium 139 mmol/L (136-145)
[2024-03-06 19:28] LABS: Fructosamine 282 mcmol/L (200 - 285)
== END 2024-03-05 05:57 | disposition home or self-care (01) ==
LOC: LBO 05:56
PROVIDERS: PCP Nurse Practitioner; Visit Provider Student in an Organized Health Care Education/Training Program
DX: M17.12 Unilateral primary osteoarthritis, left knee (principal); Z01.818 Encounter for other preprocedural examination; E11.9 Type 2 diabetes mellitus without complications
CPT/HCPCS: 36415; 80048; 85027; 82985

== ENCOUNTER 2024-03-20 07:17 | Observation (INO) | payer MEDICARE, BC, SELFPAY ==
[2024-03-20] VITALS (88 sets, daily range): BP systolic 64–148; BP diastolic 26–93; PULSE 52–105; RESP 10–26; TEMP 36.1–36.7; O2SAT 91–100; BMI 33.3
--- NOTE | 2024-03-20 06:47 | ANES.PREOP_ITS ---
General Info Date of Service Date Performed: 03/20/24 Height: 5 ft 2 in Weight: 82.554 kg Body Mass Index (BMI): 33.3 Surgical Procedure: Operation Date: 03/20/24 07:40 Proposed Procedure Side Surgeon p Knee Total Arthroplasty Cementless CR (Potential Cemented) Left Nadir Serrano MD Meds Allergies and Home Medications Allergies Allergy/AdvReac Type Severity Reaction Status Date / Time enalapril AdvReac Intermediate cough Verified 03/20/24 06:23 codeine AdvReac N/V Verified 03/20/24 06:23 liraglutide AdvReac Other (See Verified 03/20/24 06:23 Comment) Sulfa (Sulfonamide AdvReac NAUSEA Verified 03/20/24 06:23 Antibiotics) Home Medication Medication Instructions Recorded aspirin 81 mg tablet,delayed 81 mg PO DAILY 12/15/12 release (Aspir-) calcium carbonate (Caltrate 600) 600 mg PO PRN 12/15/12 glucosamine 750 [id number]-[id number] 1 tab PO DAILY 12/15/12 no.1 625 mg-C 30 ag-cdlh-[id number] tablet omega-3 fatty acids-fish oil 340 1 ea PO Q3D 12/15/12 mg-1,000 mg capsule (Fish Oil) polyethylene glycol 3350 17 17 g PO DAILY PRN ##1 12/02/14 gram/dose oral powder (Miralax) cholecalciferol (vitamin D3) 25 1,000 unit PO DAILY 10/26/17 mcg (1,000 unit) capsule (Vitamin D3) alcohol swabs (Alcohol Prep Pads) 1 pad topical QID To cleanse skin 09/13/18 prior to insulin injections QID. #400 ea pantoprazole 40 mg tablet,delayed 40 mg PO DAILY PRN PRN 05/10/20 release docusate sodium 100 mg capsule 100 mg PO DAILY PRN constipation 06/19/21 (Colace) psyllium husk 0.4 gram capsule 0.4 g PO DAILY PRN constipation 10/07/22 #30 caps blood-glucose meter,continuous 04/22/23 (Dexcom G7 [employer] Utility [employer]er) blood-glucose sensor (Dexcom G7 04/22/23 Sensor device) empagliflozin 25 mg tablet 25 mg PO DAILY 04/22/23 (Jardiance) atorvastatin 40 mg tablet 40 mg PO DAILY #90 tab-caps 06/29/23 irbesartan 300 mg tablet See Rx Instructions .Route 11/21/23 .COMPLEX #90 tabs hydrochlorothiazide 12.5 mg tablet 12.5 mg PO DAILY AM #90 tab-caps 01/04/24 trazodone 100 mg tablet 100 mg PO HS PRN insomnia #90 01/04/24 tab-caps mupirocin 2 % topical ointment 1 applic topical TID #15 grams 01/28/24 insulin glargine 100 unit/mL See Rx Instructions subcut .COMPLEX 02/27/24 subcutaneous solution (Lantus U-100 Insulin) insulin lispro 100 unit/mL 4 - 8 unit subcut BID 02/27/24 subcutaneous pen (Humalog KwikPen (U-100) Insulin) Current Visit Medications: Current Medications Generic Name Dose Route Start Last Admin Trade Name Freq PRN Reason Stop Dose Admin Acetaminophen 1,000 mg 03/20/24 06:00 Acetaminophen 500 Mg Tab PO 03/20/24 23:59 PREOP RAS Celecoxib 400 mg 03/20/24 06:00 Celecoxib 200 Mg Cap PO 03/20/24 23:59 PREOP RAS Gabapentin 300 mg 03/20/24 06:00 Gabapentin 300 Mg Cap PO 03/20/24 23:59 PREOP RAS Ringer's Solution 1,000 mls @ 80 mls/hr 03/20/24 06:00 IV 03/20/24 23:59 INFUSION RAS Cefazolin Sodium/Dextrose 2 gm in 50 mls @ 100 mls/hr 03/20/24 06:00 Ancef Duplex IVPB 03/20/24 23:59 PREOP RAS IV Miscellaneous Supplies 1 each 03/20/24 06:00 Iv Access IV 03/20/24 23:59 DIRECTED RAS Sodium Chloride 0 ml 03/20/24 06:00 Normal Saline Flush 10 Ml Syr IV 03/20/24 23:59 PRN PRN Sodium Chloride 0 ml 03/20/24 06:00 Normal Saline 10 Ml Vial IJ 03/20/24 23:59 DIRECTED PRN Sterile Water 0 ml 03/20/24 06:00 Water,Injection,Sterile 10 Ml Vial IJ 03/20/24 23:59 DIRECTED PRN PFSH Active Problems Active Problems: Problem Status Onset Code Retinopathy, diabetic, bilateral E11.319 Pain in right ankle M25.571 Pain in left ankle M25.572 Pain in joint, foot, left M25.572 Anxiety GERD (gastroesophageal reflux disease) Asymptomatic varicose veins 03/06/12 I83.90 Lipoma of back 04/12/16 D17.1 Other and unspecified hyperlipidemia 11/23/11 E78.5 Lumbago 07/21/12 M54.5 Sleep disturbance, unspecified 09/26/07 G47.9 Essential hypertension I10 Arthralgia 11/23/11 M25.50 Type 2 diabetes mellitus with retinopathy of both eyes, with long-term current use of insulin E11.319, Z79.4 Arthritis of right knee M17.11 Osteoarthritis of left knee M17.12 Elevated LFTs R79.89 Nail dystrophy L60.3 Foot pain, right M79.671 CKD (chronic kidney disease) N18.9 Anxiety F41.9 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 Venous insufficiency I87.2 PAD (peripheral artery disease) I73.9 Medical History Medical History Retinal hemorrhage (11/23/11) Plantar fasciitis of right foot Surgical History Surgical History History of total abdominal hysterectomy and bilateral salpingo-oophorectomy (~1970) Reports her right ovary is present Had appendix removed Oophrectomy, Left 1970's Flex laryngoscopy (07/31/15) Excision, Lipoma (11/17/17) left upper shoulder Colonoscopy - MAC (10/31/17) Cholecystectomy Biopsy of breast 1984 L benign Adenoidectomy Tobacco Smoking/Tobacco Use Status: Former Tobacco Use Passive smoking exposure: No Alcohol Alcohol Intake: current Alcohol intake frequency: holidays/special occasions only Substance Use Substance use: Never Substance use type: does not use Vital Signs and Lab Results Lab Results Blood Type / Crossmatch: 2 No Data to Display Complete Blood Count: 2 White Blood Count 6.04 10^3/uL (4.4-10.8) 03/05/24 11:19 Red Blood Count 5.02 10^6/uL (3.93-5.22) 03/05/24 11:19 Hemoglobin 15.6 g/dL (11.2-15.7) 03/05/24 11:19 Hematocrit 46.5 % (36.0-46.0) H 03/05/24 11:19 Platelet Count 252 10^3/uL (130-400) 03/05/24 11:19 Complete Metabolic Panel: 2 Sodium 139 mmol/L (136-145) 03/05/24 11:19 Potassium 3.8 mmol/L (3.5-5.1) 03/05/24 11:19 Chloride 100 mmol/L (98-107) 03/05/24 11:19 Carbon Dioxide 31.8 mmol/L (21.0-32.0) 03/05/24 11:19 BUN 24 mg/dL (7-18) H 03/05/24 11:19 Creatinine 1.3 mg/dL (0.55-1.02) H 03/05/24 11:19 Est GFR (CKD-EPI 2020) 41.83 (mL/min/1.73m2) 03/05/24 11:19 Calcium 10.3 mg/dL (8.5-10.1) H 03/05/24 11:19 Glucose 147 mg/dL (74-106) H 03/05/24 11:19 Hemoglobin A1c 6.6 % (4.5-5.7) H 02/24/24 19:10 Liver Function Panel: 2 No Data to Display Coagulation Panel: 2 No Data to Display Cardiac Panel: 2 No Data to Display Arterial Blood Gas: 2 No Data to Display Venous Blood Gas: 2 No Data to Display Pancreas Panel: 2 No Data to Display Thyroid Panel: 2 No Data to Display Infectious Disease: 2 No Data to Display Blood Cultures: 2 No Data to Display Toxicology Panel: 2 No Data to Display Anesthesia Assessment and Plan Anesthesia History Personal History: No History of Anesthesia Complications Family History: No Family History of Anesthesia Complications Exercise Tolerance Exercise Tolerance: Metabolic Equivalents<4 Pertinent Negatives Pertinent Negatives: No Symptoms of GERD, No Major Cardiovascular Symptoms or Complaints, No Major Pulmonary Symptoms or Complaints and No History of CVA/TIA Cardiac & Pulmonary Exam Cardiac Exam: Normal S1/S2 Heart Sounds Pulmonary Exam: Clear Bilateral Breath Sounds Implantable Cardiac Device Does patient have a Pacemaker or an ICD?: No Airway Exam Known Difficult Airway: No Mallampati Class: 2 Mouth Opening: Normal (> 3cm) Thyromental Distance: Greater than 3 cm Neck Range of Motion: Full ROM Neck Circumference: Thick Teeth Condition: Normal Dentition and Loose or Chipped Tooth Numberin 1. Loose tooth Airway Comments: Discussed possibility of dislodging tooth if airway manipulation ASA Classification ASA Score: ASA 3 Emergency Case?: No NPO Status NPO Status: NPO Clears >2 hours, Solids >8 hours Anesthesia Plan Resuscitation Status: Full Code Anesthesia Technique: Spinal Anesthesia Airway Planned: Natural Airway Pain Management: Surgeon and patient request nerve block Monitors Used: Standard Monitors
[2024-03-20] MEDS: Gabapentin 300 MG CAP PO ×2 (06:54→20:45)
[2024-03-20] MEDS: Celecoxib 200 MG CAP 400 MG PO (06:54)
[2024-03-20] MEDS: Acetaminophen 500 MG TAB 1000 MG PO ×2 (06:54→20:43)
[2024-03-20] MEDS: Lactated Ringers 1,000 ML 80 ML IV ×3 (07:05→16:57)
[2024-03-20] MEDS: ceFAZolin 2 GM/50 ML BAG IVPB (07:31)
[2024-03-20] MEDS: TRANEXAMIC ACID/SOD. CHL. 1,000 MG/100 ML BAG 600 MG IVPB (07:44)
--- NOTE | 2024-03-20 08:03 | W.ANESNERVE ---
Nerve Block Single Injection Procedure Date and Time Date Performed: 03/20/24 Procedure Start: 07:20 Location Where Procedure Performed Procedure Location: Day Surgery Unit Reason Performed: Postoperative Analgesia Requesting Provider: Nadir Serrano Timeout Performed Timeout Performed: Yes Monitoring Used ECG, Blood Pressure, SpO2 and See EMR for corresponding vital signs Sterility Sterility: Hand Hygiene, Surgical Cap, Surgical Mask, Sterile Gloves, Sterile Drape/Sheet and Chlorhexidine Sedation Given During Procedure Sedation Given (Indicate Dose Given): Versed IV Dose:: 1 mg Patient Mental Status Patient Mental Status: Sedate with meaningful communication Nerve Block 1st Nerve Block: Laterality: Left Block Type: Adductor Canal Ultrasound Image Saved?: Yes Needle / Catheter Used: 100mm SonoPlex II Local Anesthetic Bolus (Indicate Dose Given): Lidocaine used for local infiltration of skin, Injected in 3-5ml increments after negative blood aspiration and Bupivacaine 0.25% Dose:: 15 ml Additives (Indicate Dose Given): None Ultrasound: Sterile probe cover and gel used Nerve Stimulator: Supplement to Ultrasound use and No twitch or parasthesia noted < 0.5 mA Paresthesia: None Procedure Tolerated: No Complications and Patient tolerated well Procedure Outcome: Successful Performed By: Roxy Juares
--- NOTE | 2024-03-20 09:30 | RT.EKG_ITS ---
APPROVED REPORT Exam: Resting ECG Reason for Exam: Chest pain Patient Location: O HR:73 bpm ECG Measurements Heart Rate 73 AXIS IA 163 P 62 QRSd 96 QRS -82 QT 448 T 33 QTc 495 Conclusion Sinus rhythm...normal P axis, V-rate 60- 99 Left axis Poor R wave progression
[2024-03-20] MEDS: ePHEDrine 25 MG/5 ML Syringe IVP ×3 (09:42→10:55)
[2024-03-20] MEDS: LORazepam 2 MG/ML VIAL 0.5 MG IVP (10:10)
--- NOTE | 2024-03-20 10:15 | ROE_ITS ---
Date of service: 03/20/24 Time of Service: 07:45 Operative Note Operative Note DATE OF PROCEDURE: 03/20/24 PRE-OP DIAGNOSIS: Left Knee Osteoarthritis POST-OP DIAGNOSIS: same PROCEDURE: Left Total Knee Replacement SURGEON: Nadir Serrano SILK CRE[employer] MACHINE OPERATOR: Sybil Kelsey ANESTHESIA TYPE: Spinal Refer to Anesthesia Record ESTIMATED BLOOD LOSS: 150 PATHOLOGY: none sent TOURNIQUET TIME: 0 COMPLICATIONS: None Patient was transported to: PACU Patient's condition: stable Implants: 1. Depuy Attune Cementless Cruciate Retaining Femoral Component, Size 5 2. Depuy Attune Cementless Fixed Bearing Tibial Component, Size 4 3. Depuy Attune 5x7 CR/FB Poly 4. Depuy Attune Patellar Component, Size 35 Indications: I have seen Annel in clinic for symptoms of knee arthritis, confirmed with radiographic findings. SHe has exhausted nonoperative methods and was having significant limitations in daily function and desired better function and less pain. I discussed the technical details of a knee replacement. I explained the risks of the procedure to include, but not limited to, bleeding, infection, pain, stiffness, fracture, damage to nerves and vessels, damage to muscles and tendons, loosening, need for repeat procedure, blood clot and cardiopulmonary demise. Despite these risks, She elected to proceed. Findings: There was significant signs of arthritis throughout the knee, particularly of the medial compartment with tibial varus deformity. Procedure Description: Annel was greeted in the preoperative holding area where the correct side was identified and marked. The consent was reviewed with the patient and signed. The history and physical was updated. All questions were answered. Preoperative medications were administered: Acetaminophen 1000mg, Celebrex 400mg, and Gabapentin 300mg. An adductor canal block was then administered by the anesthesia team in the DSU. Annel was taken back to the operating room. A spinal anesthestic was then administered. The patient was placed into the supine position on the operating room table. A nonsterile tourniquet was placed high onto the leg but only used for cementing. Posts were placed for positioning during the procedure. All bony prominences were well padded. Prophylactic antibiotics in the form of Cefazolin were administered. 1g of Tranxemic Acid was given intravenously withi n 30 minutes of incision. The left leg was then prepped with Chloraprep and draped in a standard fashion with impervious stockinette. A second prep with Chloraprep was performed prior to application of Iodine impregnated skin protection. A timeout to confirm correct identity, side and site, procedure, allergies, anesthesia, and medical concerns was performed. With the knee in some flexion, a midline incision was made overlying the knee. Full thickness skin flaps were raised once the extensor mechanism was encountered. These were raised medially and laterally. Any bleeding was controlled with electrocautery. Once the extensor mechanism was fully exposed, a medial parapatellar arthrotomy was performed in a flexed position. All bleeding from the arthrotomy and the geniculate arteries was coagulated. A medial subperiosteal peel was performed with electrocautery to the midcoronal plane. Due to the significant varus deformity the entire medial tibial plateau was exposed. The fat pad was removed while keeping the patellar tendon protected. The anterior distal femur synovium was removed for later visualization. The ACL and PCL were resected and the anterior horn of the lateral meniscus was transected. The knee was then flexed with the patella everted. Large osteophytes from the tibia were removed. Large osteophytes from the femur were removed. Using a step drill, and based on preoperative templating, the femoral canal was entered. This was done with a step drill without any difficulty. The intramedullary distal femoral cut guide was inserted, set to a 5 degree valgus cut and 9mm cut thickness. The distal femoral cut guide was then held in position and pinned. With the soft tissues protected, the distal cut was performed. This was passed over a few times to ensure a planar cut. I then turned attention to the tibia. The extramedullary guide was placed onto the leg. The distal aspect was slid medial to adjust for position of center of ankle and stay in line with shaft of the tibia. Approximately 3-5 degrees of posterior slope was kept in the proximal cutting guide. The center of the guide was aligned with the PCL. The stylus was used to assess cut thickness. The medial side, most involved side, was set for a 3mm cut. This was then held in position and pinned into place with 2 additional pins and a cross pin for stability. The medial and lateral collateral ligaments were protected and the cut was performed. With this completed, it was assessed and noted to be of appropriate dimensions. The guide was removed. A spacer block was inserted and the knee was brought into extension. The 6mm spacer block provided full extension, without hyperextension and with stability of both the medial and lateral collateral ligaments was asse ssed. The pins from the femur and the tibia were then removed. The distal femur was then sized. The anterior stylus was placed onto the lateral ridge of the anterior femur. This indicated a size 5 femur. The external rotation of the guide was adjusted to 3 degrees to match the epicondylar axis, perpendicular to Kati?s line. The 4-in-1 cutting guide was the placed. The posterior medial femur cut was evaluated and appeared of good thickness. The spacer block was inserted underneath the cutting guide and stability was confirmed in 90 degrees of flexion. An gloria wing was used to con firm appropriate position of the anterior cut to avoid notching. This cutting guide was ensured to be flush on the cut surface and then pinned into place with headed pins. While protecting the soft tissues, quad tendon, and collateral ligaments, the anterior and posterior cuts were performed with a saw. The central two pins were removed and the posterior and anterior chamfers were cut next. The notch-cutting guide was placed. This was pinned to lateralize the femoral component as much as possible while keeping it flush on the cut surface. This was then pinned into position. A reciprocating saw was used to make the notch cut. A rasp smoothed the cut surfaces. The medial and lateral menisci were removed. A trial femoral component was then inserted, impacted down to the cut surfaces, and the lug holes were drilled. A provisional trial tibial component was placed and the knee was brought through range of motion. The polyethylene was trialed until there was good flexion and extension with excellent stability to the medial and lateral collaterals. The patella was tracking without thumbs. A size 7mm polyethylene component provided the best range of motion and stability with less than 2mm gapping with medial and lateral stress and full extension without significant hyperextension. The tibial cut surface was fully exposed. The tibia was then sized as a 4. The tibia had been previously marked during trialing to correspond to the center of the tibial component to help with rotation. The trial was aligned to this andres, approximately rotated to the medial 1/3rd of the tibial tubercle. The trial was pinned into place. The tibia was prepared with a reamer and a keel punch and lug holes. The knee was then brought into extension and the patella was measured as 24mm. Using the patellar clamp and cut guide, this was resected to a flat surface with at least 13mm of thickness remaining. The size 35 patella fit the best. This was oriented and then clamped into position. The lugs were drilled. The trial components were removed. The final components were opened on the back table. The periosteal and capsular tissues, especially posteriorly, around the knee were then systematically injected with a periarticular cocktail consisting of 246mg of Ropivacaine, 0.5mg of Epinephrine, 0.08mg of Clonidine, and 30mg of Ketorolac, diluted to 100cc. On the back table, with the implants opened, the cement was mixed. One batch of high viscosity cement was prepared with vacuum assistance. After the cement was ready a small amount was placed on the cut surface of the patella and the patellar button was clamped into position and held. While the cement was hardening, the cementless knee components were placed. Starting with the tibial component, the tibia was subluxed anteriorly and the lug holes of the component were lined up. The tibia was then impacted with an impactor and mallet until the tibial component was in contact with the tibia. The final polyethylene component was inserted. Then, the femoral component was inserted. The lug holes were aligned and the component was impacted into position. The knee was irrigated with Surgiphor Betadine solution. This was allowed to sit in the knee for 3 minutes and then it was irrigated out with saline. After the cement had finally cured, approximately 15min, the clamp was removed from the patella and the knee was taken through range of motion. The patella was tracking with a no-thumbs technique. The capsule was then reapproximated with a No. 1 Vicryl at multiple locations. The capsule was finally closed with a No. 2 Stratafix, barbed suture. The second dosing of 1g TXA was started. Deep tissues were then reapproximated with 0 Vicryl and 2-0 Vicryl. The skin was closed with a running 3-0 Monocryl in a subcuticular fashion. This was reinforced with skin glue. A Mepilex silver dressing was applied along with a [id number] NATHAN wrap. A CryoCuff was applied. Annel was transferred to the hospital bed without difficulty an suffering no apparent complication. Annel has a good prognosis. Physical therapy will start today and without restrictions, weight-bearing as tolerated. Aspirin 81mg BID will be used for DVT prophylaxis.
[2024-03-20 10:19] LABS: Troponin I < 50 ng/L (< or =60)
[2024-03-20] MEDS: fentaNYL 100 MCG/2 ML VIAL IVP (10:23)
--- NOTE | 2024-03-20 11:13 | ANES_ITS ---
Date of service: 03/20/24 Time of Service: 10:32 Anesthesia Note Report Anesthesia Note: Chest pain follow-up EKG results: (Read by Dr. Shankar) Conclusion Sinus rhythm...normal P axis, V-rate 60- 99 Left axis Poor R wave progression Troponin negative. Patient states the chest discomfort seems to letting up but still has a slight increase in discomfort wiith deep breaths. patient was fidgety, Ativan ordered and given by [employer] INSTALLER. Resting quietly. Dr. Serrano informed.
[2024-03-20] MEDS: ePHEDrine 25 MG/5 ML Syringe IM (12:50)
--- NOTE | 2024-03-20 12:57 | PDOC.ANES ---
Date of service: 03/20/24 Time of Service: 12:58 Anesthesia Note Report Anesthesia Note: Seen at bedside, patient is hypotensive. IM ephedrine given in right deltoid. BGL High per personal monitor. Rechecked and is 368. To order coverage now.
[2024-03-20] MEDS: Insulin Aspart 100 UNITS/ML UNIT 12 UNITS SC (13:55)
--- NOTE | 2024-03-20 14:50 | PDOC.ANES ---
Date of service: 03/20/24 Time of Service: 14:51 Anesthesia Note Report Anesthesia Note: Pt. has total knee completed this morning and while in PACU, was noted to have lower than expected BP. She received IV fluid, IV ephedrine with improvement. Has had continued low BP readings for the last few hours and remains asymptomatic. no anesthesia medications or EBL seem to account for this, except for spinal medication effect on a 78 yo and now hyperglycemia. Blood sugar checked and found to be high 360's. Insulin ordered and given but no decrease noted yet, will continue to reassess. Pt. does admit she stopped her insulin therapy this morning which was her decision. Given these challenges, i discussed with patient that we will followup on a 2nd troponin to be sure that this is not cardiac related given previous left chest discomfort, monitor blood sugar and plan for a hospital admission to give time for this to resolve.
[2024-03-20 15:55] LABS: Glucose 426 mg/dL (74-106)
[2024-03-20 16:00] LABS: Troponin I < 50 ng/L (< or =60)
--- NOTE | 2024-03-20 16:00 | W.PM.PROGNOT ---
Date of Service Date of service: 03/20/24 Time of Service: 16:00 Assessment and Plan Assessment and plan (1) Hypotension after procedure: Status: Acute Assessment and plan: Persistent. She has received 2 small bolus. She also received ephedrine by anesthesia in the recovery period. Asymptomatic. Appreciate hospice consult although little concern for active cardiovascular process. (2) Hyperglycemia due to diabetes mellitus: Status: Acute Assessment and plan: Give morning insulin dose now. Continue to follow sliding scale. (3) Type 2 diabetes mellitus with retinopathy of both eyes, with long-term current use of insulin: Status: Chronic Qualifiers: Diabetic retinopathy severity: with unspecified retinopathy severity Diabetes mellitus macular edema: macular edema presence unspecified Qualified Code(s): E11.319 - Type 2 diabetes mellitus with unspecified diabetic retinopathy without macular edema; Z79.4 - long term care administrator (current) use of insulin (4) Osteoarthritis of left knee: Status: Chronic Assessment and plan: Status post left knee replacement. Weightbearing as tolerated. She may get out of bed to use the bathroom and ambulate. PT consult. Subjective Subjective Interval history since last seen: Annel was seen in the day surgery area. Unfortunately, while the knee replacement procedure itself went without any significant issues, postoperatively she has had persistent hypotension although asymptomatic. She also had persistent hyperglycemia. Initial EKG and troponin in the PACU was negative. She did not take her nighttime or morning dose of Lantus. She also did not take her home irbesartan and hydrochlorothiazide. She denies any chest pain or shortness of breath. She has not voided. She has not gotten out of bed. She does report being quite sleepy. There is also some mention about difficulty swallowing and a lack of interest with her current drink. Exam Narrative Exam Narrative: Sitting up in the hospital stretcher. No acute distress. Alert and x 3. Knee dressing is clean dry and intact. Objective Last Vital Signs Temp 36.2 C L 03/20/24 14:20 Pulse 94 H 03/20/24 14:20 Resp 14 03/20/24 15:15 BP 95/39 L 03/20/24 15:15 Pulse Ox 95 03/20/24 14:21 Laboratory Results - last 24 hr 03/20/24 03/20/24 09:56 15:30 Glucose 426 H Troponin I < 50 Time Spent with Patient Time Spent with Patient: 25-34 minutes Time was spent: obtaining and/or reviewing separately otained hiistory, referring, communicating with other health customer care team coach, indepentently interpreting results and counseling the patient
--- NOTE | 2024-03-20 16:16 | PHACLINREV_ITS ---
Pharmacy Admission Review Admission Clinical Review Admission Pharmacy Review: Hyperglycemia due to diabetes mellitus (Acute) Hypotension after procedure (Acute) enalapril Adverse Reaction (Intermediate, Verified 03/20/24 06:23) cough codeine Adverse Reaction (Verified 03/20/24 06:23) N/V liraglutide Adverse Reaction (Verified 03/20/24 06:23) Other (See Comment) Sulfa (Sulfonamide Antibiotics) Adverse Reaction (Verified 03/20/24 06:23) NAUSEA Resuscitation Status Full Code Height 5 ft 2 in Weight 82.554 kg Pharmacy Admission Review Renal Dosing Medications needing adjustments: Reviewed (CrCl 34.94 mL/min) List of meds needing interventions: Current medications are okay Anticoagulation DVT Prophylaxis: Reviewed (SCDs/TEDs) Opiate Usage Evaluate Pain Scale/Pains Meds: Reviewed (PRN hydromorphone) Scheduled Bowel Reg ordered if on Opiates?: No (PRN docusate and Miralax) Relevant Labs Electrolytes, C-Reactive P, ESR: Reviewed (No new labs) DM Control DM Control: Glucose 426 mg/dL (74-106) H 03/20/24 15:30 Finger Stick Blood Glucose 461 Finger Stick Blood Glucose 418 Finger Stick Blood Glucose 406 Finger Stick Blood Glucose 368 Finger Stick Blood Glucose 210 Finger Stick Blood Glucose 210 Insulin Dosing, Diabetic Medication: Has order for SS insulin and BID Lantus 15 units Cardiac Review Cardiac Review: Troponin I < 50 ng/L (< or =60) 03/20/24 15:30 Blood Pressure [Right Arm] 103/33 Blood Pressure [Right Arm] 130/54 Blood Pressure 95/39 1515 Blood Pressure 148/52 1502 Blood Pressure 108/70 1446 Blood Pressure 89/57 1430 Blood Pressure 103/33 1421 Blood Pressure 104/36 1420 Blood Pressure 100/44 1401 Blood Pressure 103/38 1352 Blood Pressure 105/37 1350 BP, HR, EF%: Reviewed (BP 95/39 and HR 94 - admitted due to persistent hypotension post surgery) QTc Review QTc: Reviewed (495 from 03/20/24) IV to PO Switch IV Medications: Reviewed (Cefazolin, hydromorphone, ondansetron) Home Meds Home Med List reviewed: Reviewed Relevent Home Meds Not ordered & why?: atorvastatin (on hold per home med list), calcium carbonate, vitamin D3, Jardiance (has order for SS insulin and glarg ine), glucosamine, HCTZ (hypotension), irbesartan (hypotension), fish oil, psyllium and trazodone Current Meds Current Medication Order Review: Intervened Comments: Discontinued all preop orders - completed this morning Pharmacy Antibiotic Review Comments: Cefazolin x 3 for post op coverage
--- NOTE | 2024-03-20 16:19 | W.MEDCONSULT ---
Date of service: 03/20/24 Time of Service: 16:22 Assessment and Plan Assessment and plan (1) Hypotension after procedure: Status: Acute Assessment and plan: Associated with some chest pain that is non-cardiac by history, most consistent with MSK. The blood pressure is already better, 123/93 when I was in the room. The hypotension is very likely caused by slow clearance of spinal anesthesia. Her chest pain has resolved. No tachycardia, tachypenea, or hypoxia to suggest PE. I do not see signs of heart failure. No signs of infection. Initial EKG and troponin do not suggest ischemia, will get one more troponin at 4 hours to reassure us given she does have risk factors. (2) Hyperglycemia due to diabetes mellitus: Status: Acute Assessment and plan: Related to skipping basal insulin. I agree with resuming her full home dosing now that she is eating. I would not be overly aggressive with rapid insulin, but would use routine sliding scale. She is also on SLGT2i, which she had appropriately held prior to the procedure. I agree with restarting given her blood pressures have normalized. (3) Essential hypertension: Status: Chronic Assessment and plan: Holding ARB/thiazide until BPs are clearly stable. (4) Elevated LFTs: Status: Acute Assessment and plan: This has been a chronic issue. She just saw GI and had work up. HALLIE positive but the pattern of transaminitis is less severe than we see with autoimmune hepatitis and her age is atypical. She is certainly at risk for MASLD (aka POWERS). I ordered repeat CMP with the second troponin to check LFTs. (5) PAD (peripheral artery disease): Status: Acute Assessment and plan: holding statin as above. this was unfortunate timing for a trial off her statin going into a significant surgery. Given her transaminitis was never severe, I would resume the statin for now perioperatively. (6) CKD (chronic kidney disease): Status: Chronic Assessment and plan: Gettign Cr/lytes with labs to monitor. She is on SGLT2i and ARB chronically. Qualifiers: Chronic kidney disease stage: stage 3 (moderate) Chronic kidney disease stage 3 subtype: stage 3a (GFR 45-59) Qualified Code(s): N18.31 - Chronic kidney disease, stage 3a History of Present Illness History of Present Illness Chief Complaint: low BP and hyperglycemia post operatively Narrative: 78 yo F with history of type 2 DM, HTN, CKD 3a, and PAD who was admitted this morning for elective left total knee arthroscopy. Case discussed with surgeon Dr. Serrano, no complications and EBL 150ml. She had spinal anesthesia. Post operatively, her blood pressure remained low in 90s-100s/30s-40s and her blood sugars were in the 3-400s. She had some chest discomfort. Pain was slightly sharp, but mild, left lateral chest. It feels tender to touch when she gets it, a little worse with a deep breath. No radiation. Not a/w SOB, diaphoresis, nausea, lightheadedness, or palpitations. Lasted a few minutes, but has come and gone this afternoon. She has been having the same discomfort over the past 1-2 months, usually in the afternoon, but hasn't told anybody. It has lasted up to 1-2 hours in the past, goes away on it's own. Taking her bra off helps. EKG and troponin was done. She did get ephedrine and phenylephrine for low blood pressure while under spinal anesthesia. She has not felt lightheaded with the low blood pressure. She typically takes her HCTZ and irbestartan in the morning, but skipped this morning. She typically takes 15 units glargine before breakfast and dinner, did not take this morning and only took 5units yesterday evening. Of note she has been holding the atorvastatin as part of a work up for her elevated liver enzymes. PFSH All Active Problems Hyperglycemia due to diabetes mellitus (Acute) Hypotension after procedure (Acute) Retinopathy, diabetic, bilateral (Acute) [place] Note 07/25/23 Pain in right ankle (Acute) Pain in left ankle (Acute) Pain in joint, foot, left (Acute) Anxiety (Chronic) GERD (gastroesophageal reflux disease) (Chronic) Asymptomatic varicose veins (Chronic 03/06/12) DONALD LEFT LEG Lipoma of back (Chronic 04/12/16) MRI confirmed 2015 (not bothersome) Other and unspecified hyperlipidemia (Chronic 11/23/11) Lumbago (Chronic 07/21/12) Sleep disturbance, unspecified (Chronic 09/26/07) heavy snoring, declined 05/2011, delined 06/2018 Essential hypertension (Chronic) Arthralgia (Acute 11/23/11) Type 2 diabetes mellitus with retinopathy of both eyes, with long-term current use of insulin (Chronic) [facility] [place] [facility] 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 Arthritis of right knee (Acute) DEPO injection 01/27/24; 07/29/21 Osteoarthritis of left knee (Chronic) TKA: 03/20/2024 Steroid Injection: 08/03/2021 Elevated LFTs (Acute) Nail dystrophy (Acute) Foot pain, right (Acute) CKD (chronic kidney disease) (Chronic) Anxiety (Chronic) Sinus tarsi syndrome of right foot (Acute) Venous insufficiency (Acute) PAD (peripheral artery disease) (Acute) Medical History Retinal hemorrhage (11/23/11) Plantar fasciitis of right foot Surgical History History of total abdominal hysterectomy and bilateral salpingo-oophorectomy (~1970) Reports her right ovary is present Had appendix removed Oophrectomy, Left 1970's Flex laryngoscopy (07/31/15) Excision, Lipoma (11/17/17) left upper shoulder Colonoscopy - MAC (10/31/17) Cholecystectomy Biopsy of breast 1984 L benign Adenoidectomy Family History Other Heart disease Hypothyroidism Mental disorder Social History Smoking/Tobacco Use Status: Former Tobacco Use tobacco type: cigarettes Quit Date: 09/26/86 Tobacco: How many years used: 15 Smoking risk assessment performed?: Yes Alcohol Intake: current Alcohol Intake frequency: holidays/special occasions only Drug use: Never Substance use type: does not use Caregiver/Support person: No Household members: spouse Housing: house Number of Children: 2 Communication Needs: None Pets and animals: No Current gender identity: female What type of physical activity do you participate in: none Seatbelt use: always Do you feel safe at home: Yes Additional Social history: [facility] Exam Narrative Exam Narrative: GEN: Sleepy, nods off when not talking, but when engaged she is alert and oriented, pleasant and cooperative, gives linear history. No acute distress at rest. HEENT: Head atraumatic. Conjunctiva clear, no icterus. no rhinorrhea. MMM, OP benign. Neck is supple with no masses or lymphadenopathy, trachea midline LUNGS: CTAB with normal effort CV: RRR. 1-2/6 systolic murmur at LUSB (not new per patient), no radiation. No gallops or rubs. ABD: +BS, soft, NT/ND, no organomegaly EXT: no cyanosis, clubbing, or edema MSK: No joint redness or swelling, left knee in cooling brace NEURO: CN 2-12 grossly intact. Intact movement and gross sensation of 4 extremities. Normal speech and coordination SKIN: No rashes or open wounds. PSYCH: normal mood and affect Results Last Vital Signs Temp 36.2 C L 03/20/24 14:20 Pulse 94 H 03/20/24 14:20 Resp 14 03/20/24 15:15 BP 95/39 L 03/20/24 15:15 Pulse Ox 95 03/20/24 14:21 Labs 03/20/24 19:30 03/20/24 19:30 Labs: Laboratory Results - last 24 hr 03/20/24 03/20/24 09:56 15:30 Glucose 426 H Troponin I < 50 < 50 Imaging EKG: report reviewed and image reviewed (NSR, left axis. No ischemic ST-T wave changes. Poor R progression, same as last EKG in 04/2020)
[2024-03-20] MEDS: Insulin Glargine 300 UNITS/3 ML PEN SC ×2 (16:30→20:50)
--- NOTE | 2024-03-20 16:57 | IN_ITS ---
PT Notes Visit Reasons: Left knee DJD Physical Therapy Inpatient Initial Evaluation Date: 03/20/2024 Referring Doctor: ELLA Moura PT Orders: PT CONSULT: S/ P Ortho surgery Precautions: Per Dr. Serrano: WBAT on L LE with AD. Patient Profile/Admitting Diagnosis: Annel is a 78-year-old female with degenerative joint disease of the left manage status post left total knee arthroplasty on postoperative day 0 needing acute care monitoring and management of postoperative hypotension, hyperglycemia due to diabetes mellitus, type 2 diabetes mellitus with retinopathy of both eyes with long-term use of insulin, essential hypertension, elevated LFTs, PAD, and CKD. PMHX: Medical History (Updated 03/05/24 @ 10:33 by Sybil Kelsey) Retinal hemorrhage (11/23/11) Plantar fasciitis of right foot Surgical History (Updated 03/05/24 @ 10:33 by Sybil Kelsey) History of total abdominal hysterectomy and bilateral salpingo-oophorectomy (~1969) Reports her right ovary is present Had appendix removed Oophrectomy, Left 1970's Flex laryngoscopy (07/31/15) Excision, Lipoma (11/17/17) left upper shoulder Colonoscopy - MAC (10/31/17) Cholecystectomy Biopsy of breast 1983 L benign Adenoidectomy Social History/Home Situation: lives with in a praivte home with 2 steps to enter. Independent with all mobility ADL before surgery. Has been taking care of as he has not been doing well with mobility performance. Equipment Owned/DME: [employer] Subjective: Okay at trying to get up, walk a little bit and sit on bedside chair for supper. Nurse Isidro already needed to help patient out of bed onto commode and back to bed prior to PT coming. Reported lightheadedness with this second attempt at getting up from edge of bed. Daughter stated that sugar is at 336 mg/dL. [employer] Olimpia measured BP at 123/93 mmHg after sitting down with pulse at 87 and oxygen saturation at 97%. Patient complained of being hungry and wanting to eat first. Objective: General Observation: NATHAN wrap to L LE. Mental Status: Alert and oriented as to person, place, time, and purpose. Able to pay attention, focus, and respond appropriately. Pain: 3/10 on the L knee with weight bearing Vital Signs: As above, see subjective section ROM: Right Lower Extremity: Hip flexion WFL. Hip abduction WFL. Knee flexion WFL. Ankle dorsiflexion WFL. Ankle plantarflexion WFL. Left Lower Extremity: Hip flexion WFL. Hip abduction WFL. Knee flexion 30 degr ees to 100 degrees actively. Knee extension -30 degrees. Ankle dorsiflexion WFL. Ankle plantarflexion WFL. STRENGTH: Right Lower Extremity: Hip flexors 4/5. Hip abductors 4/5. Knee flexors 5/5. Knee extensors 4/5. Ankle dorsiflexors 4/5. Ankle plantarflexors 4/5. Left Lower Extremity: Hip flexors 4-/5. Hip abductors 4-/5. Knee flexors 3-/5. Knee extensors 3-/5. Ankle dorsiflexors 4/5. Ankle plantarflexors 4/5. Bed Mobility/Transfers: Minimal cueing provided for use of B hands as needed for support, movement sequence, AD management, and posture to reduce fall risk and minimize pain report Supine to sit with minimal assist with HOb at 30 degrees Sit to supine with minimal assist Sit to stand with minimal assist with FWW Stand to sit with minimal assist with FWW Gait: Deferred, patient complained of worsening lightheadedness Balance: Static Sitting: Good Dynamic Sitting: Fair Static Standing: Fair Dynamic Standing: Fair Special Tests: Mobility Limitations Standardized Measure [facility] AM-PAC 6 clicks Basic Mobility Inpatient Short Form: Raw Score: 18 CMS Score: 47% deficit Informed Consent/Education: Patient was instructed in purpose of PT consult and plan of care. Agreeable to proceed with established PT POC to achieve personal goals. Assessment: Lightheadedness and anxiety limited today's performance. Will reassess mobility level tomorrow morning. Patient presents with clinical signs and symptoms consistent with current/admitting diagnoses that have resulted to mobility limitations, gait instability, generalized weakness, and overall ADL decline as demonstrated by the following impairment level findings: 1. Decreased strength to L hip and knee major muscle groups 2. Impaired sitting/standing balance 3. Impaired activity tolerance 4. Limitation of joint range of motion in L knee 5. Anxiety 6. Lightheadedness Impairments are contributing to the following functional limitations: 1. Decline in bed mobility skills 2. Decline in transfer skills 3. Difficulty with ambulation without assistive device and physical assistance 4. Increased completion time for mobility ADL performance 5. Increased risk for falls 6. Difficulty with managing steps alone safely Patient is assessed as a [id number] moderate complexity based on the following: History: 78-year-old female with past medical history as indicated above Examination: Demonstrable impairment in strength, balance, and mobility level with underlying impairments and functional limitations as exhibited above as well as deficit score of 47% utilizing the [facility] Mobility Inpatient Short Form Presentation: evolving Decision Makin moderate complexity Goals: Goals X1 week 1. Supine-Sit independent 2. Sit-Supine independent 3. Sit-Stand independent 4. Stand-Sit independent with FWW 5. Bed-Chair independent with FWW 6. Chair-Bed independent with FWW 7. Independent gait on level surface with use of FWW for at least 300 feet w ithout report of pain nor dyspnea 8. Independent stair negotiation while holding onto B rails for at least 3 steps without report of pain nor dyspnea 9. Independent with home exercise program 10. Good static and dynamic standing balance/tolerance Plan of Care/Treatment Plan: 1-2x/day, 7 days/week x 1 week. Plan of care has been reviewed with the HOSE SPRAYER providing the service under Physical Therapy direction. Initiate Physical Therapy intervention for pain management as needed, strengthening, bed mobility, transfers, gait, stairs, balance training, and use of assistive device. DISCHARGE RECOMMENDATIONS: Home with no services [] [] Home with services [specify] [X] Home with outpatient P home when medically cleared by orthopedic surgeon. Recommend outpatient PT services in order to optimize functional mobility outcomes and facilitate return to independent community ambulation without an assistive device. [] SNF for continued rehabilitation [] [] [facility] [] [] SNF versus LTC based on ability to participate and progress [] TREATMENT CODE/TIME: 69192 x 18 minutes for 1 unit space (16:57?17: 15). Thank you for the opportunity to participate in the care of this patient. Elizabeth Dennison PT, DPT, CLT [facility] [place], [place]
[2024-03-20] MEDS: Normal Saline Flush 10 ML SYR IV (16:58)
[2024-03-20] MEDS: ceFAZolin 1 GM/50 ML BAG IVPB ×2 (16:58→23:06)
[2024-03-20] MEDS: Insulin Aspart 300 UNITS/3 ML PEN SC (17:59)
[2024-03-20 20:40] LABS: Abs Immature Grans 0.03 10^3/uL (0.0-0.06); Absolute Basophil Count 0.01 10^3/uL (0.0-0.2); Absolute Monocyte Count 0.33 10^3/uL (0.1-0.8); Absolute Neutrophil Count 7.43 10^3/uL (1.2-6.7); Basophils % 0.1 %; HCT 38.3 % (36.0-46.0); HGB 12.9 g/dL (11.2-15.7); Immature Grans % 0.4 %; MCH 31.3 pg (27.0-33.0); MCHC 33.7 % (32.0-36.0); MCV 93 fL (80-95); Neutrophils % 89.5 %; Platelet Count 183 10^3/uL (130-400); RBC 4.12 10^6/uL (3.93-5.22); RDW 12.7 % (11.7-14.6); RDW-SD 43.6 fL
[2024-03-20] MEDS: Celecoxib 200 MG CAP PO (20:44)
[2024-03-20] MEDS: Aspirin E.C. 81 MG TABEC PO (20:45)
[2024-03-20 21:13] LABS: ALT 25 U/L (14-59); AST 21 U/L (15-37); Alkaline Phosphatase 71 U/L (46-116); BUN 25 mg/dL (7-18); Bilirubin, Total 0.43 mg/dL (0.2-1.0); CREATININE 1.6 mg/dL (0.55-1.02); Calcium 8.9 mg/dL (8.5-10.1); Chloride 101 mmol/L (98-107); Glucose 343 mg/dL (74-106); Potassium 4.2 mmol/L (3.5-5.1); Sodium 137 mmol/L (136-145); Total Protein 5.9 g/dL (6.4-8.2); Troponin I < 50 ng/L (< or =60)
[2024-03-21 00:14] VITALS: BP 122/60; PULSE 66; RESP 18; TEMP 36.7; O2SAT 96
[2024-03-21 04:26] VITALS: BP 130/60; PULSE 67; RESP 20; TEMP 36.8; O2SAT 97
[2024-03-21] MEDS: Normal Saline Flush 10 ML SYR IV (05:52)
[2024-03-21] MEDS: ceFAZolin 1 GM/50 ML BAG IVPB (05:53)
[2024-03-21 07:56] VITALS: BP 106/79; PULSE 62; RESP 18; TEMP 36.7; O2SAT 97
--- NOTE | 2024-03-21 09:18 | PGE_ITS ---
Date of Service Date of service: 03/21/24 Time of Service: 09:19 Assessment and Plan Assessment and plan (1) Hypotension after procedure: Status: Acute Assessment and plan: Associated with some chest pain that is non-cardiac by history, most consistent with MSK. The blood pressure has been stable on the floor, no symptoms, though she isn't getting her home blood pressure medications yet. She has mild non-cardiac chest pain, both troponins were reassuring. I think okay to discharge home, could have her hold her blood pressure medication and monitor blood pressure at home or restart on f/u if within a week (2) Hyperglycemia due to diabetes mellitus: Status: Acute Assessment and plan: Related to skipping basal insulin. Now well controlled (3) Essential hypertension: Status: Chronic Assessment and plan: Holding ARB/thiazide until BPs, see above (4) Elevated LFTs: Status: Acute Assessment and plan: This has been a chronic issue. Normalized off her statin, suggesting this was indeed the cause. That said, given her diagnosis of PAD statin therapy may be indicated even if it causes a mild elevation of LFTs. I'm not sure if her PAD diagnosis clinical disease or just noted on imaging. This distinction may affect her goal. For now, I would send her home on a lower dose of statin (10mg) and PCP and GI can decide. (5) PAD (peripheral artery disease): Status: Acute Assessment and plan: see above re: statin. she is on ASA. (6) CKD (chronic kidney disease): Status: Chronic Assessment and plan: Cr on high end of baseline post-op, which is not alarming. She is on SGLT2i and ARB, holding ARB for now.. Qualifiers: Chronic kidney disease stage: stage 3 (moderate) Chronic kidney disease stage 3 subtype: stage 3a (GFR 45-59) Qualified Code(s): N18.31 - Chronic kidney disease, stage 3a (7) GERD (gastroesophageal reflux disease): Status: Chronic Assessment and plan: She is on PPI chronically only as needed. Given calcium antacid this morning. She did get dexamethasone and celecoxib which may be triggers. Subjective Subjective Patient reports: feels better and voiding w/o difficulty; denies shortness of breath or fever Interval history since last seen: No events overnight. She still has some mild left sided chest soreness. Breathing well, not dizzy. Has appetite this morning, had some reflux of acid before her breakfast, then vomited a small amount of her food. She gets this maybe once/mo at home and takes tums or Rolaids. No headache. Exam Narrative Exam Narrative: GEN: Alert and oriented, sitting up in chair, No acute distress at rest. LUNGS: CTAB with normal effort CV: RRR. 1-2/6 systolic murmur at LUSB (not new per patient), no radiation. No gallops or rubs. EXT: no cyanosis, clubbing, or edema PSYCH: normal mood and affect Objective Last Vital Signs Temp 36.7 C 03/21/24 07:56 Pulse 62 03/21/24 07:56 Resp 18 03/21/24 07:56 BP 106/79 03/21/24 07:56 Pulse Ox 97 03/21/24 07:56 Laboratory Results - last 24 hr 03/20/24 03/20/24 03/20/24 09:56 15:30 20:30 WBC 8.30 RBC 4.12 Hgb 12.9 Hct 38.3 MCV 93 MCH 31.3 MCHC 33.7 RDW 12.7 Plt Count 183 MPV 10.0 Immature Gran % 0.4 Neutrophils % 89.5 Lymphocytes % 6.0 Monocytes % 4.0 Eosinophils % 0.0 Basophils % 0.1 Nucleated RBC % 0.0 Absolute Neutrophils 7.43 H Absolute Lymphocytes 0.50 L Absolute Monocytes 0.33 Absolute Eosinophils 0.00 Absolute Basophils 0.01 Sodium 137 Potassium 4.2 Chloride 101 Carbon Dioxide 26.0 Anion Gap 10.0 BUN 25 H Creatinine 1.6 H Est GFR (CKD-EPI 2020) 32.60 Glucose 426 H 343 H Calcium 8.9 Total Bilirubin 0.43 AST 21 ALT 25 Alkaline Phosphatase 71 Troponin I < 50 < 50 < 50 Total Protein 5.9 L Albumin 3.0 L Time Spent with Patient Time Spent with Patient: 25-34 minutes Time was spent: preparing to see the patient(eg.review tests), obtaining and/or reviewing separately otained hiistory, ordering medications,tests, procedures, referring, communicating with other health acute care clinical nurse specialist, indepentently interpreting results and counseling the patient
[2024-03-21 09:19] VITALS: BP 116/57; PULSE 57; RESP 19; TEMP 35.9; O2SAT 100
--- NOTE | 2024-03-21 09:27 | PDOC.CMIN ---
Date of service: 03/21/24 Time of Service: 09:27 Care Management Initial Assmt Initial Assessment Reason for Hospitalization: osteoarthritis of left knee Functional Status/Living Situation Patient Presentation: Annel was sitting up in a chair finishing her lunch when CM met with her. She had knee surgery yesterday and had been nauseated and hypotensive last evening. This morning she reported still feeling a bit nauseated but the symptoms cleared and she was able to finish her lunch. She is working well with PT and will have new home health PT at discharge. Annel was open to conversation and pleasant in manner. She stated that she is feeling well and is looking forward to going home this afternoon. Her son is arriving from [place] tomorrow with his 2 sons and Annel is very much looking forward to seeing them. She has not seen her grandsons in about 5 years. Town of Residence: [facility] Resides with: Spouse (Steve) Significant Other/Family: Out of area Natural Supports: Son in [place] with 4 children and daughter in [place], also with 4 children. Annel also has 2 great grandchildren with a 3rd expected in June. 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) Instrumental Activities of Daily Living (ADLs): Independent Medications Medication Management: No Issues/Barriers identified Physical Functioning/Mobility Assistive Device: walker Advance Directives Advance Directives: Do you have an Advance Directive: N 11/11/17 11:42 AD On File at [facility]: N 11/11/17 11:42 Date Asked 03/01/24 03/05/24 09:47 AD Date Reviewed 03/20/24 03/16/24 11:02 COLST On File at [facility] COLST Date Scanned Code Status Resuscitation Status Full Code Portal Pt does not currently have a portal and education provided: No Insurance Coverage/Financial Issues Insurance: Medicare BC/BS ACO Member: No Care Team Visit Care Team Role Provider Type Arleen Schmidt NP Primary Care Provider NURSE PRACTITIONER InPatient Aung Iyer Other Providers OTHER Nadir Serrano MD Admit Provider [facility] STAFF PHYSICIAN Attending Provider Discharge Potential Discharge Needs: Surgical F/U Appt Anticipated Barriers to Discharge: Medical Status Patient/Family Education Needs: Review discharge instructions, discuss Ask Me Three Transportation: Private vehicle Plan: Anticipate Annel will be discharged home with new home health services for PT. She will follow up with her surgeon and plan of care and transport with family. CM will follow and assess for discharge needs. [facility] All Active Problems History of total left knee replacement (Acute 03/20/24) Hyperglycemia due to diabetes mellitus (Acute) Hypotension after procedure (Acute) Retinopathy, diabetic, bilateral (Acute) [place] Note 07/25/23 Pain in right ankle (Acute) Pain in left ankle (Acute) Pain in joint, foot, left (Acute) Anxiety (Chronic) GERD (gastroesophageal reflux disease) (Chronic) Asymptomatic varicose veins (Chronic 03/06/12) DONALD LEFT LEG Lipoma of back (Chronic 04/12/16) MRI confirmed 2016 (not bothersome) Other and unspecified hyperlipidemia (Chronic 11/23/11) Lumbago (Chronic 07/21/12) Sleep disturbance, unspecified (Chronic 09/26/07) heavy snoring, declined 05/2011, delined 06/2018 Essential hypertension (Chronic) Arthralgia (Acute 11/23/11) Type 2 diabetes mellitus with retinopathy of both eyes, with long-term current use of insulin (Chronic) [facility] [place] Endo manages 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 Arthritis of right knee (Acute) DEPO injection 01/27/24; 07/29/21 Elevated LFTs (Acute) Nail dystrophy (Acute) Foot pain, right (Acute) CKD (chronic kidney disease) (Chronic) Anxiety (Chronic) Sinus tarsi syndrome of right foot (Acute) Venous insufficiency (Acute) PAD (peripheral artery disease) (Acute) Medical History Retinal hemorrhage (11/23/11) Plantar fasciitis of right foot Surgical History History of total abdominal hysterectomy and bilateral salpingo-oophorectomy (~1969) Reports her right ovary is present Had appendix removed Oophrectomy, Left 1970's Flex laryngoscopy (07/31/15) Excision, Lipoma (11/17/17) left upper shoulder Colonoscopy - MAC (10/31/17) Cholecystectomy Biopsy of breast 1983 L benign Adenoidectomy Family History Other Heart disease Hypothyroidism Mental disorder Social History Smoking/Tobacco Use Status: Former Tobacco Use tobacco type: cigarettes Quit Date: 09/26/86 Tobacco: How many years used: 15 Smoking risk assessment performed?: Yes Alcohol Intake: current Alcohol Intake frequency: holidays/special occasions only Drug use: Never Substance use type: does not use Caregiver/Support person: No Household members: spouse Housing: house Number of Children: 2 Communication Needs: None Pets and animals: No Current gender identity: female What type of physical activity do you participate in: none Seatbelt use: always Do you feel safe at home: Yes Additional Social history: [facility] SDOH(Care Management) Screening Will the Patient Participate in the Screening?: Yes Do you worry about having a steady place to live?: no In the past 12 months, have you had to go without electric, gas, oil or water in your home?: no Have you or anyone in your house had to go without enough food to eat?: no Has lack of transportation kept you from medical appointments or from doing things needed for daily living?: no Has anyone in your support network made you feel unsafe for any reason?: no
[2024-03-21] MEDS: Aspirin E.C. 81 MG TABEC PO (09:47)
[2024-03-21] MEDS: Empaglifozin 25 MG TAB PO (09:47)
[2024-03-21] MEDS: Celecoxib 200 MG CAP PO (09:47)
[2024-03-21] MEDS: Acetaminophen 500 MG TAB 1000 MG PO ×2 (09:48→15:27)
[2024-03-21] MEDS: Cholecalciferol (Vitamin D3) 1,000 UNIT TAB 1000 UNITS PO (09:48)
[2024-03-21] MEDS: Insulin Glargine 300 UNITS/3 ML PEN SC (09:48)
[2024-03-21] MEDS: Pantoprazole 40 MG TABCR PO (09:48)
--- NOTE | 2024-03-21 11:09 | PT.INTREAT ---
PT Notes Visit Reasons: Left knee DJD Physical Therapy Inpatient Treatment Note Date: 03/21/2024 Precautions: Per Dr. Serrano: WBAT on L LE with AD. Subjective: Denied headache, chest pain, lightheadedness throughout session. Highest pain level in L knee at 3/10 during ambulation. Objective: General Observation: NATHAN wrap to L LE. Mental Status: Alert and oriented as to person, place, time, and purpose. Able to pay attention, focus, and respond appropriately. Pain: 3/10 on the L knee with weight bearing Vital Signs: As above, see subjective section Bed Mobility/Transfers: Minimal cueing provided for use of B hands as needed for support, movement sequence, AD management, and posture to reduce fall risk and minimize pain report Sit to supine with stand by assist with FWW Sit to stand with stand by assist with FWW Stand to sit with stand by assist with FWW Gait: Facilitated safe and correct performance of level surface ambulation covering a distance of 300 feet using front wheeled walker with step to gait pattern requiring only standby assist and wheelchair follow for safety. Minimal verbal cueing provided for posture, AD management ensuring that she stays inside the walker at all times for safety, and safe gait pattern. Stairs: Guided patient with safe correct negotiation of 3 x 4 inch steps and 2 x 6 inch steps holding onto bilateral rails with step to gait pattern requiring verbal cueing to increase knee flexion on the right during each send, hand placement, posture, and overall safety to minimize pain and reduce risk for falls. Balance: Static Sitting: Good Dynamic Sitting: Good Static Standing: Fair Dynamic Standing: Fair Informed Consent/Education: Patient was instructed in purpose of PT consult and plan of care. Agreeable to proceed with established PT POC to achieve personal goals. Trained patient with correct performance of exercises below to maximize motor control, joint flexibility, soft tissue extensibility of the L knee musculature: Access Code: [email or web address] URL: [email or web address] Date: 03/21/2024 Prepared by: Elizabeth Dennison Exercises - Supine Quad Set - 1 x daily - 7 x weekly - 1 sets - 10 reps - 5 hold - Supine Heel Slide - 1 x daily - 7 x weekly - 1 sets - 10 reps - 5 hold - Supine Ankle Pumps - 1 x daily - 7 x weekly - 1 sets - 10 reps - 5 hold - Small Range Straight Leg Raise - 1 x daily - 7 x weekly - 1 sets - 10 reps - 5 hold - Seated March - 1 x daily - 7 x weekly - 1 sets - 10 reps - 5 hold Assessment: Patient presents with clinical signs and symptoms consistent with current/admitting diagnoses that have resulted to mobility limitations, gait instability, generalized weakness, and overall ADL decline as demonstrated by the following impairment level findings: 1. Decreased strength to L hip and knee major muscle groups 2. Impaired sitting/standing balance 3. Impaired activity tolerance 4. Limitation of joint range of motion in L knee Impairments are contributing to the following functional limitations: 1. Decline in bed mobility skills 2. Decline in transfer skills 3. Difficulty with ambulation without assistive device and physical assistance 4. Increased completion time for mobility ADL performance 5. Increased risk for falls 6. Difficulty with managing steps alone safely Plan of Care/Treatment Plan: Continue with HEP performance and use of FWW for all mobility ADL performance and follow up with orthopedic surgeon as instructed. DISCHARGE RECOMMENDATIONS: [] Home with no services [] [] Home with services [specify] [X] Home with outpatient PT when medically cleared by orthopedic surgeon in order to optimize functional mobility outcomes and facilitate return to independent community ambulation without an assistive device. [] SNF for continued rehabilitation [] [] Retirement Care [] [] SNF versus LTC based on ability to participate and progress [] TREATMENT CODE/TIME: 88448 x 25 minutes for 2 units, 69568 x 15 minutes for 1 unit (11:09?11:49).
[2024-03-21 11:37] VITALS: BP 112/79; PULSE 57; RESP 18; TEMP 36.9; O2SAT 98
--- NOTE | 2024-03-21 11:44 | W.ANESPOSTOP ---
Postoperative Evaluation Date, Time and Location Date Performed: 03/21/24 Time Performed: 11:44 Patient Location: Med/Surg Vital Signs Most Recent Imported Vital Signs: Most Recent Vital Signs Temp Pulse Resp BP Pulse Ox 36.9 C 57 L 18 112/79 98 03/21/24 11:37 03/21/24 11:37 03/21/24 11:37 03/21/24 11:37 03/21/24 11:37 Pain Score Most Recent Pain Score: Most Recent Pain Score Pain Level [Left Knee] 2 03/21/24 09:54 Pain Level 2 03/21/24 09:48 Assessment Mental Status: Awake (Alert & Oriented to Patient Baseline) Airway and Respiratory Function: Patent airway with normal (patient baseline) respiratory exam Cardiovascular Function: Hemodynamically Stable Hydration Status: Adequately Hydrated Nausea & Vomiting: No Nausea or Vomiting Pain: Pain is tolerable per patient Peripheral Nerve Block: Regional nerve block not resolved at time of post operative discharge
--- NOTE | 2024-03-21 13:03 | DSE_ITS ---
Date of service: 03/21/24 Time of Service: 12:58 DS: Diagnosis Discharge Diagnosis (1) History of total left knee replacement: Status: Acute (2) Hyperglycemia due to diabetes mellitus: Status: Acute (3) Hypotension after procedure: Status: Acute Discharge Plan Disposition Patient Disposition: Home W/Home Health Services Condition: Good Discharge Details Reason For Visit: Left knee DJD Admit Date/Time: 03/20/24 07:17 Admit Provider: Nadir Serrano Attending Provider: Nadir Serrano Primary Care Provider: Arleen Schmidt Hospital Course Hospital Course: Patient was admitted to the medical/surgical floor following the procedure due to some persistent relative hypotension and hyperglycemia. She did not respond to typical measures and therefore was admitted for observation. The hospitalist service was involved and made recommendations for the most part she improved with some time. Mobilization began postoperatively. She was voiding spontaneously. Vitals were stable. Physical therapy worked with the patient and was cleared for discharge home. No acute medical issues. Pain was controlled on oral regimen. Home Meds and New Rx's Prescriptions: New acetaminophen 500 mg tablet 1,000 mg PO Q8H PRN Qty: 90 0RF Rx Instructions: Take two tablets up to every 8 hours as needed for pain aspirin 81 mg tablet,delayed release (DR/EC) 81 mg PO BID 30 Days Qty: 60 0RF celecoxib [Celebrex] 200 mg capsule 200 mg PO BID PRNQty: 60 0RF Rx Instructions: Take one tablet twice daily for pain and inflammation docusate sodium [Colace] 100 mg capsule 100 mg PO BID Qty: 30 0RF gabapentin 300 mg capsule 300 mg PO QHS Qty: 14 0RF Rx Instructions: Take one tablet at bedtime oxycodone 5 mg tablet 5 mg PO Q4H PRNQty: 18 0RF Rx Instructions: Take one tablet up to every 4 hours as needed for severe postoperative pain Continued atorvastatin 40 mg tablet 40 mg PO DAILY Qty: 90 3RF Hold Instructions: 03/09/24 Hold per CARLO Antunez [facility] GI mupirocin 2 % ointment 1 applic topical TID Qty: 15 0RF docusate sodium [Colace] 100 mg capsule 100 mg PO DAILY PRN (Reason: constipation) psyllium husk 0.4 gram capsule 0.4 g PO DAILY PRN (Reason: constipation) Qty: 30 1RF Rx Instructions: Trial for diarrhea hydrochlorothiazide 12.5 mg tablet 12.5 mg PO DAILY AM Qty: 90 3RF trazodone 100 mg tablet 100 mg PO HS PRN (Reason: insomnia) Qty: 90 3RF calcium carbonate [Caltrate 600] 600 MG tablet 600 mg PO PRN Patient Comments: Fish Oil 1 EACH capsule 1 ea PO Q3D Patient Comments: Rx Instructions: 2X'S WEEK [id number] 1 EACH tablet 1 tab PO DAILY Patient Comments: Rx Instructions: Dr Tsang rec polyethylene glycol 3350 [Miralax] 527 GM powder 17 g PO DAILY PRNQty: 1 alcohol swabs [Alcohol Prep Pads] pads, medicated 1 pad TP QID Qty: 400 3RF Rx Instructions: Dx: E11.9 Jardiance 25 mg tablet 25 mg PO DAILY (DME) Dexcom G7 Margin Trimmer Misc See Rx Instructions .Route Rx Instructions: As directed (DME) Dexcom G7 Sensor Device See Rx Instructions .Route Rx Instructions: As directed irbesartan 300 mg tablet See Rx Instructions .ROUTE .COMPLEX Qty: 90 1RF Dose Instruction: TAKE ONE TABLET BY MOUTH EVERY DAY Rx Instructions: TAKE ONE TABLET BY MOUTH EVERY DAY insulin glargine [Lantus U-100 Insulin] 100 unit/mL solution See Rx Instructions subcut .COMPLEX Patient Comments: 5 units taken Rx Instructions: 02/24/24 15 units before breakfast and after dinner (not at bedtime) subcutaneously insulin lispro [Humalog KwikPen Insulin] 100 unit/mL insulin pen 4 - 8 unit subcut BID Rx Instructions: 02/24/24 4u before breakfast, 8u before lunch between 6-10 U am,10-30 U pm 05/[place] [place], varies the dose 20-40 units before meals 3 times a day. Sarah Manning APRN 03/13/20 30 units before meals 3 times daily 05/16/20 20-30 U tid 06/19/21 [facility] [place] breakfast 12-18u depending on food choices and BS, and lunch 20-28u depending and food and BS. 01/04/23 10 units 15 min before meals pantoprazole 40 mg tablet,delayed release (DR/EC) 40 mg PO DAILY PRN PRN Patient Comments: pt states only takes when she needs it Rx Instructions: Take 40 mg once daily in the morning on an empty stomach, at least 20-30 minutes before meal cholecalciferol (vitamin D3) [Vitamin D3] 1,000 UNIT capsule 1,000 unit PO DAILY Discontinued aspirin [Aspir-81] 81 MG tablet,delayed release (DR/EC) 81 mg PO DAILY Patient Comments: Discharge Instructions Additional Instructions: Total Knee Discharge Instructions Activity: The most important activity is to walk and to work on gentle motion (both flexion and extension). You should try to take short walks a few times a day. It is important that when resting you work on keeping the knee straight. Avoid putting a pillow behind the knee as this will encourage flexion. Work on range of motion exercises as provided by Physical Therapy. - Start outpatient physical therapy within 2 weeks. - You should wear the TIA hose on both legs for 2 weeks. You may remove these at night. You may also use any compression sock in place of the TIA hose. - Utilize [employer] to review exercises, see videos on exercises and obtain basic information pertaining to your surgery and your recovery. Dressing: Remove the Syd wrap by 2 days after your surgery and put on the TIA stocking given to you from the hospital. Keep the surgical dressing (underneath the SYD wrap) in place for at least one week. After the first week it may be removed and replaced with light gauze and tape or nothing. The wound and dressing may get wet after 3 days but avoid soaking the dressing or otherwise it will need to be changed. Many people prefer covering the dressing with cling wrap (saran wrap) to minimize it from getting soaked. If it gets wet, just pat dry. If it starts to peel off then it will need to be changed. Medications: - You should take Tylenol and anti-inflammatory Celebrex as your primary pain control medications. If the Celebrex is too expensive or not covered, please call the office for another alternative (Advil/Ibuprofen or Naproxen/Aleve) - You have been prescribed a stronger pain medication Oxycodone for breakthrough pain, take as needed as prescribed. - You take a stomach acid reduction agent Pantoprozole at baseline - continue with this medication to help reduce stomach acid and reflux. - You have been prescribed Gabapentin to take at night for restlessness and nerve pain. - You will be taking Aspirin 81mg twice a day for DVT prevention unless instructed otherwise. You were initially prescribed Decadron for postoperative nausea and pain. However, given your persistent hyperglycemia. Do not take this medication. - If you have constipation you should take Colace (which has been prescribed) or Miralax (which is available [id number]). It takes most people 3-4 days to have a bowel movement. Follow-up: 2 weeks If you have any acute concerns or questions, please do not hesitate to contact the office at [phone]. You may contact Dr. Serraon with any questions after hours through the hospital at [phone] or on his cell phone at [phone]. Referrals: Nadir Serrano MD [ [facility] STAFF PHYSICIAN] - Activity:: Activity as Tolerated Equipment/Supplies:: Walker Diet:: As Tolerated Discharge Orders Discharge Orders: Discharge Order (Routine); Ordered 03/20/24 Ordered By: Sybil Kelsey DS: Summary Time Spent with Patient providing and/or coordinating discharge services: Less than 30 minutes Status at Discharge Functional status at discharge: uses cane/walker Overall status at discharge: patient is progressing back to baseline Mental Status: mental status grossly normal Speech and Movement: speech and movement normal Mood: congruent mood Affect: normal affect Quality:SDOH Health Related Social Needs: No Data to Display Exam Narrative Exam Narrative: Sitting up in the chair. No acute distress. Alert and orient x 3. Dressing is clean dry and intact. Straight leg raise intact. Active range of motion from 5 to 90 degrees. Active ankle dorsiflexion, plantarflexion, great toe extension, great toe flexion. Sensation intact light touch over the deep and superficial peroneal nerve and tibial nerve Psych Mental Status: mental status grossly normal Speech and Movement: speech and movement normal Mood: congruent mood Affect: normal affect DS: Data Vitals/I&O Vitals and I&O: Vital Signs Temperature 97.9 F 03/20/24 06:00 Pulse 52 L 03/20/24 06:00 Pulse Rhythm Regular 03/20/24 06:00 Respiratory Rate 17 03/20/24 06:00 Respiratory Depth Normal 03/20/24 06:00 Blood Pressure 124/70 03/20/24 06:00 Pulse Oximetry 99 03/20/24 06:00 Oxygen Delivery Method Room Air 03/20/24 06:00 Oxygen Flow Rate 0 03/20/24 06:00 Pain Level 0 03/20/24 06:00 Intake & Output 03/19/24 03/19/24 03/20/24 11:59 23:59 11:59 Weight 182 lb 0.006 oz PFSH All Active Problems History of total left knee replacement (Acute 03/20/24) Hyperglycemia due to diabetes mellitus (Acute) Hypotension after procedure (Acute) Retinopathy, diabetic, bilateral (Acute) [place] Note 07/25/23 Pain in right ankle (Acute) Pain in left ankle (Acute) Pain in joint, foot, left (Acute) Anxiety (Chronic) GERD (gastroesophageal reflux disease) (Chronic) Asymptomatic varicose veins (Chronic 03/06/12) DONALD LEFT LEG Lipoma of back (Chronic 04/12/16) MRI confirmed 2016 (not bothersome) Other and unspecified hyperlipidemia (Chronic 11/23/11) Lumbago (Chronic 07/21/12) Sleep disturbance, unspecified (Chronic 09/26/07) heavy snoring, declined 05/2011, delined 06/2018 Essential hypertension (Chronic) Arthralgia (Acute 11/23/11) Type 2 diabetes mellitus with retinopathy of both eyes, with long-term current use of insulin (Chronic) [facility] [place] manages 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 Arthritis of right knee (Acute) DEPO injection 01/27/24; 07/29/21 Elevated LFTs (Acute) Nail dystrophy (Acute) Foot pain, right (Acute) CKD (chronic kidney disease) (Chronic) Anxiety (Chronic) Sinus tarsi syndrome of right foot (Acute) Venous insufficiency (Acute) PAD (peripheral artery disease) (Acute) Medical History Retinal hemorrhage (11/23/11) Plantar fasciitis of right foot Surgical History History of total abdominal hysterectomy and bilateral salpingo-oophorectomy (~1969) Reports her right ovary is present Had appendix removed Oophrectomy, Left 1970's Flex laryngoscopy (07/31/15) Excision, Lipoma (11/17/17) left upper shoulder Colonoscopy - MAC (10/31/17) Cholecystectomy Biopsy of breast 1984 L benign Adenoidectomy Family History Other Heart disease Hypothyroidism Mental disorder Social History Smoking/Tobacco Use Status: Former Tobacco Use tobacco type: cigarettes Quit Date: 09/26/86 Tobacco: How many years used: 15 Smoking risk assessment performed?: Yes Alcohol Intake: current Alcohol Intake frequency: holidays/special occasions only Drug use: Never Substance use type: does not use Caregiver/Support person: No Household members: spouse Housing: house Number of Children: 2 Communication Needs: None Pets and animals: No Current gender identity: female What type of physical activity do you participate in: none Seatbelt use: always Do you feel safe at home: Yes Additional Social history: [employer]
[2024-03-21] MEDS: Insulin Aspart 300 UNITS/3 ML PEN SC (13:25)
--- NOTE | 2024-03-21 13:51 | CHAPLAIN ---
Annel was resting in bed, talking with a friend when I visited. She told me about her knee surgery yesterday and being kept over night because of low blood pressure and nauseam. She thinks she'll go home today. Her son and two grandsons are arriving tomorrow from [place] and she's looking forward to time with them.
--- NOTE | 2024-03-21 15:59 | NUR.NOTE ---
Nursing Note: PT DC home with daughter via private vehicle, she has all personal belongings and has no further questions regarding DC instructions, escorted to main entrance via WC by this nurse
--- NOTE | 2024-03-21 18:33 | PDOC.CMDIS ---
Date of service: 03/21/24 Time of Service: 18:33 LACE Index Scoring Tool Questions: Length of Stay (in days): 1 Was the patient admitted via the E.D.?: No Comorbidities: PVD, Diabetes w/o Complication and Liver or Renal Disease E.D. Visits: 0 Answers: Total Score: 6 Risk of Readmission: Low Risk Care Management Discharge Plan Reason for Hospitalization: osteoarthritis of left knee Discharge Plan: Annel will be discharged home with new home health services for PT. She will follow up with her surgeon and plan of care and transport with family. Patient/Family Education Needs: Review discharge instructions, discuss Ask Me Three Services Needed at Discharge: Home Health Care Services SDOH Health Related Social Needs: No Data to Display
== END 2024-03-21 15:30 | disposition home health service (06) ==
LOC: SUR 07:19 → MS 16:07
PROVIDERS: Family Medicine; Nurse Anesthetist, Certified Registered; Admitting Provider Student in an Organized Health Care Education/Training Program; PCP Nurse Practitioner; Visit Provider Student in an Organized Health Care Education/Training Program
PROC: (CPT 27447; principal; 2024-03-20 07:30)
DX: M17.12 Unilateral primary osteoarthritis, left knee (principal); I95.81 Postprocedural hypotension; E11.65 Type 2 diabetes mellitus with hyperglycemia; E11.319 Type 2 diabetes mellitus with unspecified diabetic retinopathy without macular edema; Z79.4 Long term (current) use of insulin; I12.9 Hypertensive chronic kidney disease with stage 1 through stage 4 chronic kidney disease, or unspecified chronic kidney disease; R79.89 Other specified abnormal findings of blood chemistry; I73.9 Peripheral vascular disease, unspecified; N18.31 Chronic kidney disease, stage 3a; K21.9 Gastro-esophageal reflux disease without esophagitis
CPT/HCPCS: 27447; C1776; 00123; 36415; 76942; 80053; 82947; 96365; 96366; 97110; 97163; 97530; 84484; 85025; 93005; 93010; 99222; 99231; G0378; J0665; J0690; J1100; J1596; J1815; J2060; J2250; J2371; J2401; J2405; J2704; J3010

== ENCOUNTER 2024-04-02 12:36 | Outpatient (CLI) | payer MEDICARE, BC, SELFPAY ==
--- NOTE | 2024-04-02 11:15 | DI.RAD_ITS ---
Exam(s) XR STANDING ALIGNMENT EXAM: XR STANDING ALIGNMENT CLINICAL HISTORY: 1ST POST OP S/P L TKA. TECHNIQUE: 2D digital imaging was performed. Standing AP views were performed from the pelvis throu gh the ankles. COMPARISON: CR XR STANDING ALIGNMENT from 01/27/2024 FINDINGS: BONES: No acute fracture is present. No bony destructive lesion is seen. Leg length discrepancy: JOINTS: Knees: Left knee prosthesis is unremarkable. Severe narrowing of the medial femoral tibial j oint space of the right knee. Mild varus angulation. No significant overall leg length discrepancy. The ankle joints are unremarkable. The hip joints are unremarkable. SOFT TISSUE: vascular calcifications. Soft tissue calcifications greater on the left. Left-sided ve nous varicosities lower leg. Some of left lower leg edema.. IMPRESSION: Severe degenerative changes of the medial femoral tibial joint of the right knee.. No significant leg length discrepancy. DATA REPOSITORY: RADIATION DOSE DELIVERED:
--- OUTSIDE RECORDS SUMMARY | 2024-04-02 12:42 | XMS_ITS | Continuity of Care Document ---
Author Name Unknown Organization [facility] Address [address] [place] [id number] Care Team Providers Care Full Charge Bookkeeper Name Role Phone JEREMIE HASSAN Primary Care Physician Encounter [facility]_PA FIN NBR [id number] Date(s): 03/09/24 - 03/09/[address] [id number] Discharge Disposition: Home or Self Care Attending Physician: Monica Martell APRN Admitting Physician: Monica Martell APRN Referring Physician: Monica Martell APRN Allergies, Adverse Reactions, Alerts Substance Reaction Severity Status codeine Unknown Active enalapril Unknown Active sulfa drugs Unknown Active liraglutide Unknown Active Assessment and Plan Diagnostic Tests Pending * Mitochondrial (M2) Antibody LC 03/09/24 * Actin (Smooth Muscle) Antibody LC 03/09/24 * Liver-Kidney Microsomal Ab LC 03/09/24 * HALLIE w/Reflex LC 03/09/24 Medications BD Single Use Swab 70% topical pad 0 Refill(s) Start Date: 03/09/24 Status: Ordered BD UF SHORT PEN NEEDLE [id number] BD UF SHORT PEN NEEDLE [id number], USE 1 PEN NEEDLE TO INJECT INSULIN UNDER THE SKIN 5 TIMES DAILY. Start Date: 03/09/24 Status: Ordered HumaLOG KwikPen 100 units/mL injectable solution INJECT 30 UNITS UNDER THE SKIN THREE TIMES A DAY Start Date: 03/09/24 Status: Ordered hydroCHLOROthiazide 12.5 mg oral tablet TAKE ONE TABLET BY MOUTH DAILY Start Date: 03/09/24 Status: Ordered irbesartan 300 mg oral tablet TAKE ONE TABLET BY MOUTH EVERY DAY Start Date: 03/09/24 Status: Ordered Jardiance 25 mg oral tablet TAKE ONE TABLET BY MOUTH EVERY DAY Start Date: 03/09/24 Status: Ordered Lantus Solostar Pen 100 units/mL subcutaneous solution INJECT 30 UNITS SUBCUTANEOUSLY EVERY NIGHT Start Date: 03/09/24 Status: Ordered mupirocin 2% topical ointment APPLY TOPICALLY TO AFFECTED AREA(S) THREE TIMES A DAY Start Date: 03/09/24 Status: Ordered traZODone 100 mg oral tablet TAKE ONE TABLET BY MOUTH AT BEDTIME NEEDED FOR INSOMNIA Start Date: 03/09/24 Status: Ordered Problem List Condition Confirmation Course Effective Dates Status H ealth Status Informant Ankle pain Confirmed Active Anxiety Confirmed Active Arthritis Confirmed Active CKD - chronic kidney disease Confirmed Active 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 Confirmed Active Elevated liver enzymes level Confirmed Active Essential hypertension Confirmed Active Foot pain Confirmed Active GERD - Gastro-esophageal reflux disease Confirmed Active Hyperlipidemia Confirmed Active Joint pain Confirmed Active Lipoma of back Confirmed Active Lumbago Confirmed Active Migraine Confirmed Active Nail dystrophy Confirmed Active Osteoarthritis Confirmed Active Peripheral artery disease Confirmed Active Plantar fasciitis Confirmed Active Retinal hemorrhage Confirmed Active Sinus tarsi syndrome Confirmed Active Sleep disturbance Confirmed Active Varicose vein Confirmed Active Venous insufficiency of leg Confirmed Active Procedures Procedure Date Related Diagnosis Body Site Status Colonoscopy 2017 Completed Abdominal hysterectomy Co mpleted Adenoidectomy Completed Arthroplasty 1 Completed Bilateral salpingo-oophorectomy Completed Biopsy of breast 2 Comple corinne Cholecystectomy Completed Excision of lipoma Comple corinne Flexible fiberoptic laryngoscopy Completed 1knee 2left Results Laboratory List Name Date .HCV Qn Interp LC (Interpretation:) 03/09 [id number], Serum LC 03/09/24 CBC w/o Diff 03/09/24 Ceruloplasmin LC 03/09/24 Ferritin 03/09/24 HBsAg Screen LC (Hepatitis B Surface Antigen (HBsAg) Screen, Qualitative [id number] LC) 03/09/24 HCV Antibody [place] to Quant PCR and Ge notyping [id number] LC 03/09/24 Hep A Ab, Total LC 03/09/24 Hep B Core Ab, Tot LC 03/09/24 Hepatitis B Surf Ab Quant LC (Hepatitis B Surface Antibody, Quantitative [id number] LC) 03/09/24 Iron Panel 03/09/24 Most recent to oldest [Reference Range]: 1 WBC [4.8-10.8 K/mcL] 6.6 K/mcL (03/09/24 11:15 AM) RBC [4.20-5.40 Million/mcL] 4.71 Million /mcL (03/09/24 11:15 AM) MCV [81.0-99.0 fL] 92.3 fL (03/09/24:15 AM) MCHC [32.0-37.0 g/dL] 34.4 g/dL (03/09/24 11:15 AM) Hct [37.0-47.0 %] 43.4 % (03/09/24:15 AM) Iron Sat [20-55 %] 19 % *LOW* (03/09/24:15 AM) MCH [27.0-31.0 pg] 31.7 pg *HI* (03/09/24 11:15 AM) Hgb [12.0-16.0 g/dL] 14.9 g/dL (03/09/24:15 AM) Transferrin [203-362 mg/dL] 308 mg/dL (03/09/24 11:15 AM) MPV [7.4-10.4 fL] 7.9 fL (03/09/24:15 AM) Ferritin Level [11.0-307.0 ng/mL] 22.3 n g/mL (03/09/24 11:15 AM) Platelets [130-400 K/mcL] 231 K/mcL (03/09/24 11:15 AM) TIBC 431 *NA* (03/09/24:15 AM) Iron [50-212 mcg/dL] 84 mcg/dL (03/09/24 11:15 AM) RDW-CV [11.5-14.5 %] 14.4 % (03/09/24 11:15 AM) Hepatitis B Surf Ab Qnt LC [Immunity>9.9 mIntlUnit/mL] 3.2 mIntlUnit/mL 1 *LOW* (03/09/24 11:15 AM) Hep A Ab, Ttl LC [Negative] Negative 2 *NA* (03/09/24 11:15 AM) Hep B Core Ab, Tot LC [Negative] Negativ e 3 *NA* (03/09/24 11:15 AM) Ceruloplasmin LC [19.0-39.0 mg/dL] 27.4 mg/dL 4 *NA* (03/09/24 11:15 AM) Bgkkn-1-Aquszkjxwdm LC [101-187 mg/dL] 1 47 mg/dL 5 *NA* (03/09/24 11:15 AM) HCV Ab: LC [Non Reactive] Non Reactive 6 *NA* (03/09/24 11:15 AM) Interpretation 1 LC Comment 7 *NA* (03/09/24 11:15 AM) Hep B Surf Ag Scr LC [Negative] Negative 8 *NA* (03/09/24 11:15 AM) 1Result Comment: Status of Immunity Anti-HBs Level Inconsistent with Immunity 0.0 - 9.9 Consistent with Immunity >9.9 Effective March 26, 2024 the reference interval will be changing to: Immunity >10 Performed At: [address] [id number] Cedric Hines MD Ph:[phone] 2Result Comment: Comment: The HAV total antibody assay detects both IgG and IgM but does not differentiate between them. A negative result suggests susceptibility to infection. A positive result could be due to vaccination, previously resolved infection or active infection. Testing for HAV IgM should be performed if active HAV infection is suspected. [facility] offers profiles that will automatically reflex positive HAV total antibody results to IgM (e.g., panel #[id number] HAV Antibody w/ Rfx). Performed At: [address] [id number] Cedric Hines MD Ph:[phone] 3Result Comment: Performed At: [address] [id number] Cedric Hines MD Ph:[phone] 4Result Comment: Performed At: [address] [id number] Cedric Hines MD Ph:[phone] 5Result Comment: Performed At: [address] [id number] Cedric Hines MD Ph:[phone] 6Result Comment: Performed At: [address] [id number] Cedric Hines MD Ph:[phone] 7Result Comment: Not infected with HCV unless early or acute infection is suspected (which may be delayed in an immunocompromised individual), or other evidence exists to indicate HCV infection. Performed At: [facility] [address] [id number] Cedric Hines MD Ph:[phone] 8Result Comment: Performed At: [facility] [address] [id number] Cedric Hines MD Ph:[phone] Social History Social History Type Response Tobacco Former tobacco user Tobacco Use:. Sex Patient Care team information Care Team Personnel Name: JEREMIE HASSAN Position: No Access Member Role: Primary Care Physician Address: Address: [address] [place] [address] [address] [place], [place] [id number] [place] [address]
--- OUTSIDE RECORDS SUMMARY | 2024-04-02 12:42 | XMS_ITS | Continuity of Care Document ---
Author Name Unknown Organization [facility] Address [address] [place] [address] Care Team Providers Care Material Requisitioner Name Role Phone JEREMIE HASSAN Primary Care Physician Encounter [facility] NBR [id number] Date(s): 03/09/24 - 03/09/24 [facility] [address] [place], [place] [address] Encounter Diagnosis GERD - Gastro-esophageal reflux disease(Discharge Diagnosis) - 03/09/24 Elevated liver enzymes level(Discharge Diagnosis) - 03/09/24 Discharge Disposition: Home or Self Care Attending Physician: Monica Martell APRN Referring Physician: JEREMIE HASSAN Allergies, Adverse Reactions, Alerts Substance Reaction Severity Status codeine Unknown Active enalapril Unknown Active sulfa drugs Unknown Active liraglutide Unknown Active Assessment and Plan Extracted from: Title:Medicare Wellness Visit-GI Author:Monica durham APRN Date:03/09/24 Assessment/Plan 1.??Elevated liver enzymes level??R74.8 ??Labs ordered to assess for hemochromatosis, viral and autoimmune hepatitis.?? Check immunity to hepatitis a and B.?? Recheck hepatic??panel and calculate fib 4 score to assess for risk of cirrhosis.?? If indicated??consider FibroScan and/or EGD??to assess for cirrhosis and portal hypertension. ??Advised her to continue to avoid alcohol.?? Advised to hold Lipitor for now.?? I will see patient back in 8 weeks.?? Abdominal ultrasound showed??no fatty liver??disease.?? Question if related to medication.?? I will call patient with results of her labs. 2.??GERD - Gastro-esophageal reflux disease??K21.9 ??Asymptomatic at this time.?? Rarely takes??PPI. ??Suggest Pepcid 20 mg daily as??needed. ??We reviewed reflux triggering foods and beverages to avoid, to avoid eating 3 hours before bedtime to eat small frequent meals.? Orders: Actin (Smooth Muscle) Antibody LC, Blood, Routine, 03/09/24 11:09:00 EDT, by Sean CORDON, Lab Collect, Abnormal liver function Mxpwx-0-Fwcolckzzwv, Serum LC, Blood, Routine, 03/09/24 11:09:00 EDT, by Sean CORDON, Lab Collect, Abnormal liver function HALLIE w/Reflex LC, Blood, Routine, 03/09/24 11:09:00 EDT, by Sean CORDON, Lab Collect, Abnormal liver function CBC w/o Diff, Blood, Routine, 03/09/24 11:09:00 EDT, by Sean CORDON, Lab Collect, Abnormal liver function Ceruloplasmin LC, Blood, Routine, 03/09/24 11:09:00 EDT, by Sean CORDON, Lab Collect, Abnormal liver function Ferritin, Blood, Routine, 03/09/24 11:09:00 EDT, by Sean CORDON, Lab Collect, Abnormal liver function Follow-up Appointment Request [email or web address], *Est. 05/09/24 +/- 14 days, Future Order, f/u elevated LFTs, In Approximately, [facility] Gastroenterology HBsAg Screen LC, Blood, Routine, 03/09/24 11:09:00 EDT, by Sean CORDON, Lab Collect, Abnormal liver function HCV Antibody [place] to Quant PCR and Genotyping [id number] LC, Blood, Routine, 03/09/24 11:09:00 EDT, by Sean CORDON, Lab Collect, Abnormal liver function Hep A Ab, Total LC, Blood, Routine, 03/09/24 11:09:00 EDT, by Sean CORDON, Lab Collect, Abnormal liver function Hep B Core Ab, Tot LC, Blood, Routine, 03/09/24 11:09:00 EDT, by Sena CORDON, Lab Collect, Abnormal liver function Hepatitis B Surf Ab Quant LC, Blood, Routine, 03/09/24 11:09:00 EDT, by Sean CORDON, Lab Collect, Abnormal liver function Iron Panel, Blood, Routine, 03/09/24 11:09:00 EDT, by Sean CORDON, Lab Collect, Abnormal liver function Liver-Kidney Microsomal Ab LC, Blood, Routine, 03/09/24 11:09:00 EDT, by Sean CORDON, Lab Collect, Abnormal liver function Mitochondrial (M2) Antibody LC, Blood, Routine, 03/09/24 11:09:00 EDT, by Sean CORDON, Lab Collect, Abnormal liver function Voice recognition software utilized which may result in minor antique collector error. No results found. No qualifying data available . Cage Assessment?? No qualifying data available. Cognitive Assessment?? Functional Status 03/09/24 Other exposure to Infectious Disease Non e Medications BD Single Use Swab 70% topical pad 0 Refill(s) Start Date: 03/09/24 Status: Ordered BD UF SHORT PEN NEEDLE [id number] BD UF SHORT PEN NEEDLE [id number], USE 1 PEN NEEDLE TO INJECT INSULIN [...] corinne Flexible fiberoptic laryngoscopy Completed 1knee 2left Vital Signs Most recent to oldest [Reference Range]: 1 Temperature Temporal Artery [36-38 Deg C ] 36.4 Deg C (03/09/24 10:31 AM) Apical Heart Rate [60-100 bpm] 67 bpm (03/09/24 10:31 AM) Blood Pressure [90-140/60-90 mmHg] 121/7 0mmHg (03/09/24 10:31 AM) Mean Arterial Pressure, Cuff [65-140 mmH g] 87 mmHg (03/09/24 10:31 AM) Weight 78.4 kg (03/09/24 10:31 AM) Weight Measured (lbs) 172.842 lb (03/09/24 10:31 AM) Weight Dosing 78.400 kg (03/09/24 10:31 AM) [place] Body Weight Calculated 50.1 kg (03/09/24 10:31 AM) Height 157.48 cm (03/09/24 10:31 AM) Height/Length Measured (inches) 62 inch (03/09/24 10:31 AM) BSA Measured 1.85 m2 (03/09/24 10:31 AM) Body Mass Index 31.61 kg/m2 (03/09/24 10:31 AM) Social History Social History Type Response Tobacco Former tobacco user Tobacco Use:. Sex Physician Outpatient Note * Monica Martell APRN: PERFORM Event Display: Office Clinic Note Physician Authored Date: [id number] RAMON TIWARI :1945 Age:78 years Sex:Female Visit Date:03/09/2024 Primary Care Physician: JEREMIE HASSAN Chief Complaint Elevated LFTs History of Present Illness Patient is a 78-year-old female here today at the request of??Ericka Felder APRN??for elevated liver functions.?? This is an initial consult.?? Liver enzymes have been elevated for approximately 1 year??labs under PCP.?? Patient is been unaware of any significant liver concerns. ??Denies alcohol use??or any family or personal history of liver disease.?? She states her liver enzymes have improvedwith??stopping??atorvastatin on January 24, 2024.?? She denies any jaundice, abdominal pain, nausea or vomiting.?? Denies any constipation??she takes Colace 100 mg daily. ??Denies diarrhea, melena or hematochezia. ??Weight and appetite are stable. ??Denies any pyrosis or dyspepsia.?? Denies dysphagiaor globus sensation. ?? Uses pantoprazole only as needed??which she has??less than once monthly. ?? Medical history includes??chronic kidney disease, diabetes with A1c 6.8,??hypertension, anxiety, GERD,??rheumatoid arthritis,??migraines, peripheral??arterial disease and peripheral vascular disease.? Labs:?? -C-complete metabolic panel??01/17/2024??creatinine 1.3,??bilirubin 0.7,??conjugated 0.3,??AST 99, ALT 111, alk phos??85, -01/27/2024??total bilirubin 0.7,??conjugated 0.2, AST 117, ALT 152, alkaline phosphatase 88??TSH 3.75, HALLIE pending??hepatitis??panel pending ?? Imagin01/20/2024 abdominal ultrasound at [facility] that was unremarkable, no hepatomegaly, concerns for distal bile ducts or fatty liver seen. ?? No family history of any gastrointestinal cancers, inflammatory bowel disease, celiac disease??or liver disease. ?? Patient has planned knee surgery or??03/21/2024. Review of Systems Pertinent positives and negatives are discussed in HPI. Physical Exam Vitals & Measurements T:??36.4?C ??(Temporal Artery)?? HR:??67??(Apical)?? BP:??121/70?? SpO2:??98%?? HT:??157.48??cm?? WT:??78.4??kg?? BMI:??31.61?? BSA:??1.85?? General: Well-nourished well-developed??Female??in no acute distress. HEENT: Head is normocephalic, trachea midline and no cervical lymphadenopathy. ??Sclera are clear. Respiratory: Respirations are even and unlabored. ??Lungs are clear to auscultation. Cardiovascular: Regular rate and rhythm with S1 and S2. Abdomen: Positive bowel sounds x4 quadrants, no masses, no guarding, no tenderness. ??No hepatosplenomegaly. ??Abdomen is soft. Skin: Warm, dry, and pink. ??No spider angiomata, palmar erythema. Neurological: Alert and oriented x3, speech is clear and gait is steady. Psychological: Pleasant, calm and cooperative. Assessment/Plan 1.??Elevated liver enzymes level??R74.8 ??Labs ordered to assess for hemochromatosis, viral and autoimmune hepatitis.?? Check immunity to hepatitis a and B.?? Recheck hepatic??panel and calculate fib 4 score to assess for risk of cirrhosis.?? If indicated??consider FibroScan and/or EGD??to assess for cirrhosis and portal hypertension. ??Advised her to continue to avoid alcohol.?? Advised to hold Lipitor for now.?? I will see patient back in 8 weeks.?? Abdominal ultrasound showed??no fatty liver??disease.?? Question if related to medication.?? I will call patient with results of her labs. 2.??GERD - Gastro-esophageal reflux disease??K21.9 ??Asymptomatic at this time.?? Rarely takes??PPI. ??Suggest Pepcid 20 mg daily as??needed. ??We reviewed reflux triggering foods and beverages to avoid, to avoid eating 3 hours before bedtime to eat small frequent meals.? Orders: Actin (Smooth Muscle) Antibody LC, Blood, Routine, 03/09/24 11:09:00 EDT, by BRAVO, Once, LabCollect, Abnormal liver function [id number], Serum LC, Blood, Routine, 03/09/24 11:09:00 EDT, by Sean CORDON, Lab Collect, Abnormal liver function HALLIE w/Reflex LC, Blood, Routine, 03/09/24 11:09:00 EDT, by Sean CORDON, Lab Collect, Abnormalliver function CBC w/o Diff, Blood, Routine, 03/09/24 11:09:00 EDT, by Sean CORDON, Lab Collect, Abnormal liver function Ceruloplasmin LC, Blood, Routine, 03/09/24 11:09:00 EDT, by Sean CORDON, Lab Collect, Abnormal liver function Ferritin, Blood, Routine, 03/09/24 11:09:00 EDT, by Sean CORDON, Lab Collect, Abnormal liver function Follow-up Appointment Request [facility]TTL_ARTUR, *Est. 05/09/24 +/- 14 days, Future Order, f/u elevated LFTs,In Approximately, [facility] Gastroenterology HBsAg Screen LC, Blood, Routine, 03/09/24 11:09:00 EDT, by Sean CORDON, Lab Collect, Abnormalliver function HCV Antibody [place] to Quant PCR and Genotyping [id number] LC, Blood, Routine, 03/09/24 11:09:00 EDT, by Sean CORDON, Lab Collect, Abnormal liver function Hep A Ab, Total LC, Blood, Routine, 03/09/24 11:09:00 EDT, by Sean CORDON, Lab Collect, Abnormal liver function Hep B Core Ab, Tot LC, Blood, Routine, 03/09/24 11:09:00 EDT, by Sean CORDON, Lab Collect, Abnormal liver function Hepatitis B Surf Ab Quant LC, Blood, Routine, 03/09/24 11:09:00 EDT, by Sean CORDON, Lab Collect, Abnormal liver function Iron Panel, Blood, Routine, 03/09/24 11:09:00 EDT, by Sean CORDON, Lab Collect, Abnormal liver function Liver-Kidney Microsomal Ab LC, Blood, Routine, 03/09/24 11:09:00 EDT, by Sean CORDON, Lab Collect, Abnormal liver function Mitochondrial (M2) Antibody LC, Blood, Routine, 03/09/24 11:09:00 EDT, by BRAVO, Once, Lab Collect, Abnormal liver function Voice recognition software utilized which may result in minor antique collector error. Medicare Assessments No results found. No qualifying data available. Cage Assessment?? No qualifying data available. Cognitive Assessment?? 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 Elevated liver enzymes level Essential hypertension Foot pain GERD - Gastro-esophageal reflux disease Hyperlipidemia Joint pain Lipoma of back Lumbago Migraine Nail dystrophy Osteoarthritis Peripheral artery disease Plantar fasciitis Retinal hemorrhage Sinus tarsi syndrome Sleep disturbance Varicose vein Venous insufficiency of leg Historical No qualifying data Procedure/Surgical History ???Colonoscopy (2018)???Abdominal hysterectomy???Adenoidectomy???Arthroplasty???Bilateral salpingo-o ophorectomy???Biopsy of breast???Cholecystectomy???Excision of lipoma???Flexible fiberoptic laryngoscopy Medications BD Single Use Swab 70% topical pad BD UF SHORT PEN NEEDLE [id number] HumaLOG KwikPen 100 units/mL injectable solution hydroCHLOROthiazide 12.5 mg oral tablet irbesartan 300 mg oral tablet Jardiance 25 mg oral tablet Lantus Solostar Pen 100 units/mL subcutaneous solution mupirocin 2% topical ointment traZODone 100 mg oral tablet Allergies codeine enalapril liraglutide sulfa drugs Social History Alcohol Current Electronic Cigarette/Vaping Electronic Cigarette Use: Never. Substance Use Never Tobacco Former tobacco user Tobacco Use:. Family History Family history is negative Health Maintenance ?Pending??(in the next year) ?Due?Adult Wellness Exam due?03/09/24?and every 1?years ?Alcohol Use Screening due?03/09/24?and every 1?years ?Annual Wellness Visit (Medicare) due?03/09/24?and every 1?years ?Bone Density Screening due?03/09/24?and every 2?years ?Depression Screening due?03/09/24?and every 1?years ?Diabetes - Albumin Creatinine Ratio due?03/09/24?and every 1?years ?Diabetes - Diabetic Peripheral Neuropathy due?03/09/24?and every 1?years ?Diabetes - Eye Exam due?03/09/24?Variable frequency ?Diabetes - Fasting Lipid Profile due?03/09/24?and every 1?years ?Diabetes - Foot Exam due?03/09/24?and every 1?years ?Diabetes - Footwear Education due?03/09/24?and every 1?years ?Diabetes - HgbA1c due?03/09/24?and every 6?months ?Diabetes - Psychosocial Assessment due?03/09/24?and every 1?years ?Diabetes - Serum Creatinine due?03/09/24?and every 1?years ?Diabetes - Statin Medication Prescribed due?03/09/24?Variable frequency ?Diabetes - Urine Dipstick due?03/09/24?and every 1?years ?Fall Risk Screening due?03/09/24?and every 1?years ?Glaucoma Screening due?03/09/24?and every 1?years ?Hepatitis C Screening due?03/09/24?One-time only ?Hypertension - Basic Metabolic Panel due?03/09/24?and every 1?years ?Initial Preventative Physical Examination (Medicare) due?03/09/24?One-time only ?Lipid Screening due?03/09/24?and every 5?years ?Due In Future?Hypertension - Blood Pressure not due until?09/08/24?and every 6?months ?Satisfied??(in the past 1 year) ?Satisfied?Body Mass Index on?03/09/24.?Satisfied by Gilma Pond ?Hypertension - Blood Pressure on?03/09/24.?Satisfied by Gilma Pond ?? Electronically Signed on 03/09/2024 12:29 EDT Monica Martell APRN Patient Care team information Care Team Personnel Name: JEREMIE HASSAN Position: No Access Member Role: Primary Care Physician Address: Address: [address] [place] [address] [place] [address]-
== END 2024-04-02 12:37 | disposition home or self-care (01) ==
LOC: DIORS 12:41
PROVIDERS: PCP Nurse Practitioner; Referring Provider Nurse Practitioner; Visit Provider Student in an Organized Health Care Education/Training Program
DX: Z96.652 Presence of left artificial knee joint (principal); Z47.1 Aftercare following joint replacement surgery
CPT/HCPCS: 77073

== ENCOUNTER 2024-04-02 13:01 | Emergency (ER) | payer MEDICARE, BC, SELFPAY ==
[2024-04-02] VITALS (7 sets, daily range): BP systolic 74–139; BP diastolic 32–102; PULSE 57–63; RESP 14–18; TEMP 36.3–37.3; O2SAT 95
--- NOTE | 2024-04-02 13:15 | RT.EKG_ITS ---
APPROVED REPORT Exam: Resting ECG Reason for Exam: Hypotension Patient Location: E HR:57 bpm ECG Measurements Heart Rate 57 AXIS MT 141 P 30 QRSd 91 QRS -68 QT 438 T 4 QTc 425 Conclusion Sinus bradycardia...rate< 60 Left anterior fascicular block...axis(240,-40), init forces inf Consider anterior infarct...Q >30mS in V2-V5
[2024-04-02 13:52] LABS: Abs Immature Grans 0.05 10^3/uL (0.0-0.06); Absolute Basophil Count 0.07 10^3/uL (0.0-0.2); Absolute Lymphocyte Count 1.09 10^3/uL (1.2-3.4); Absolute Monocyte Count 0.47 10^3/uL (0.1-0.8); Basophils % 0.7 %; HCT 37.6 % (36.0-46.0); HGB 12.3 g/dL (11.2-15.7); Immature Grans % 0.5 %; Lymphocytes % 10.9 %; MCH 30.8 pg (27.0-33.0); MCHC 32.7 % (32.0-36.0); MCV 94 fL (80-95); MPV 8.7 fL (8.0-11.0); Monocytes % 4.7 %; Neutrophils % 81.2 %; Platelet Count 315 10^3/uL (130-400); RDW 12.9 % (11.7-14.6); RDW-SD 44.4 fL; WBC 9.98 10^3/uL (4.4-10.8)
[2024-04-02] MEDS: Normal Saline 1,000 ML 1000 ML IV (14:08)
[2024-04-02 14:12] LABS: ALT 20 U/L (14-59); AST 22 U/L (15-37); Alkaline Phosphatase 78 U/L (46-116); BUN 26 mg/dL (7-18); Bilirubin, Total 0.55 mg/dL (0.2-1.0); CREATININE 1.6 mg/dL (0.55-1.02); Calcium 9.4 mg/dL (8.5-10.1); Chloride 101 mmol/L (98-107); Glucose 266 mg/dL (74-106); Magnesium 2.2 mg/dL (1.8-2.4); Potassium 4.4 mmol/L (3.5-5.1); Sodium 136 mmol/L (136-145); Total Protein 6.5 g/dL (6.4-8.2); Troponin I < 50 ng/L (< or =60)
--- NOTE | 2024-04-02 14:49 | ED.GENADUL_ITS ---
Discharge Plan Disposition Patient Disposition: Home Condition: Stable Discharge Details Clinical Impression: Near syncope, Hypotension Primary Care Provider: Arleen Schmidt ED Provider: Yu Bowers Home Meds and New Rx's Prescriptions: Held hydrochlorothiazide 12.5 mg tablet 12.5 mg PO DAILY AM Qty: 90 3RF Hold Instructions: Resume on 04/12/24. As directed by Arleen Schmidt irbesartan 300 mg tablet See Rx Instructions .ROUTE .COMPLEX Qty: 90 1RF Hold Instructions: Resume on 04/03/24. Only take half a tablet Dose Instruction: TAKE ONE TABLET BY MOUTH EVERY DAY Rx Instructions: TAKE ONE TABLET BY MOUTH EVERY DAY No Action atorvastatin 40 mg tablet 40 mg PO DAILY Qty: 90 3RF Hold Instructions: 03/09/24 Hold per CARLO Antunez [facility] GI mupirocin 2 % ointment 1 applic topical TID Qty: 15 0RF docusate sodium [Colace] 100 mg capsule 100 mg PO DAILY PRN (Reason: constipation) psyllium husk 0.4 gram capsule 0.4 g PO DAILY PRN (Reason: constipation) Qty: 30 1RF Rx Instructions: Trial for diarrhea trazodone 100 mg tablet 100 mg PO HS PRN (Reason: insomnia) Qty: 90 3RF calcium carbonate [Caltrate 600] 600 MG tablet 600 mg PO PRN Patient Comments: Fish Oil 1 EACH capsule 1 ea PO Q3D Patient Comments: Rx Instructions: 2X'S WEEK ejduoffs-dsom-tht1-C-mina-bosw 1 EACH tablet 1 tab PO DAILY Patient Comments: Rx Instructions: Dr Tsang rec polyethylene glycol 3350 [Miralax] 527 GM powder 17 g PO DAILY PRNQty: 1 alcohol swabs [Alcohol Prep Pads] pads, medicated 1 pad TP QID Qty: 400 3RF Rx Instructions: Dx: E11.9 Jardiance 25 mg tablet 25 mg PO DAILY (DME) 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 See Rx Instructions .Route Rx Instructions: As directed (DME) Dexcom G7 Sensor Device See Rx Instructions .Route Rx Instructions: As directed insulin glargine [Lantus U-100 Insulin] 100 unit/mL solution See Rx Instructions subcut .COMPLEX Patient Comments: 5 units taken Rx Instructions: 02/24/24 15 units before breakfast and after dinner (not at bedtime) subcutaneously insulin lispro [Humalog KwikPen Insulin] 100 unit/mL insulin pen 4 - 8 unit subcut BID Rx Instructions: 02/24/24 4u before breakfast, 8u before lunch between 6-10 U am,10-30 U pm 05/15/19-[facility] [place] endo note, varies the dose 20-40 units before meals 3 times a day. Sarah Nigel, MECHATRONICS TECHNICIAN 03/13/20 30 units before meals 3 times daily 05/16/20 20-30 U tid 06/19/21 [facility] [place] Endocrinology breakfast 12-18u depending on food choices and BS, and lunch 20-28u depending and food and BS. 01/04/23 10 units 15 min before meals tramadol 50 mg tablet 50 mg PO Q8H PRN (Reason: pain) Qty: 20 0RF pantoprazole 40 mg tablet,delayed release (DR/EC) 40 mg PO DAILY PRN PRN Patient Comments: pt states only takes when she needs it Rx Instructions: Take 40 mg once daily in the morning on an empty stomach, at least 20-30 minutes before meal acetaminophen 500 mg tablet 1,000 mg PO Q8H PRN Qty: 90 0RF Rx Instructions: Take two tablets up to every 8 hours as needed for pain aspirin 81 mg tablet,delayed release (DR/EC) 81 mg PO BID 30 Days Qty: 60 0RF celecoxib [Celebrex] 200 mg capsule 200 mg PO BID PRNQty: 60 0RF Rx Instructions: Take one tablet twice daily for pain and inflammation docusate sodium [Colace] 100 mg capsule 100 mg PO BID Qty: 30 0RF cholecalciferol (vitamin D3) [Vitamin D3] 1,000 UNIT capsule 1,000 unit PO DAILY Discharge Instructions Instructions: Near Fainting (DC) Additional Instructions: I was able to speak with your primary care provider Arleen Schmidt regarding her medications she recommends holding the hydrochlorothiazide and decreasing the irbesartan by half. Only take the irbesartan half a tablet and do not take the hydrochlorothiazide until further notice. They are going to try to get you an appointment later this week. Please manage your diabetes as previously instructed. Return to the ER for any worsening chest pain, shortness of breath any lightheadedness or feel as if you are going to faint or any further concerns. At this time there is no evidence of heart attack, Referrals: Arleen Schmidt NP [Primary Care Provider] - 5 days HPI General Date/Time Provider Initiated Documentation: 04/02/24 13:22 . Related Data Home Medications Medication Instructions Recorded Confirmed calcium carbonate (Caltrate 600) 600 mg PO PRN 12/15/12 04/02/24 glucosamine 750 by-rqymmmasma-voe 1 tab PO DAILY 12/15/12 04/02/24 no.1 625 mg-C 30 yj-cpoo-aekt tablet omega-3 fatty acids-fish oil 340 1 ea PO Q3D 12/15/12 04/02/24 mg-1,000 mg capsule (Fish Oil) polyethylene glycol 3350 17 17 g PO DAILY PRN ##1 12/02/14 04/02/24 gram/dose oral powder (Miralax) cholecalciferol (vitamin D3) 25 1,000 unit PO DAILY 10/26/17 04/02/24 mcg (1,000 unit) capsule (Vitamin D3) alcohol swabs (Alcohol Prep Pads) 1 pad topical QID To cleanse skin 09/13/18 04/02/24 prior to insulin injections QID. #400 ea pantoprazole 40 mg tablet,delayed 40 mg PO DAILY PRN PRN 05/10/20 04/02/24 release docusate sodium 100 mg capsule 100 mg PO DAILY PRN constipation 06/19/21 04/02/24 (Colace) psyllium husk 0.4 gram capsule 0.4 g PO DAILY PRN constipation 10/07/22 04/02/24 #30 caps blood-glucose meter,continuous 04/22/23 04/02/24 (Dexcom G7 [employer]ing [employer]) blood-glucose sensor (Dexcom G7 04/22/23 04/02/24 Sensor device) empagliflozin 25 mg tablet 25 mg PO DAILY 04/22/23 04/02/24 (Jardiance) atorvastatin 40 mg tablet 40 mg PO DAILY #90 tab-caps 06/29/23 04/02/24 irbesartan 300 mg tablet See Rx Instructions .Route 11/21/23 04/02/24 .COMPLEX #90 tabs hydrochlorothiazide 12.5 mg tablet 12.5 mg PO DAILY AM #90 tab-caps 01/04/24 04/02/24 trazodone 100 mg tablet 100 mg PO HS PRN insomnia #90 01/04/24 04/02/24 tab-caps mupirocin 2 % topical ointment 1 applic topical TID #15 grams 01/28/24 04/02/24 insulin glargine 100 unit/mL See Rx Instructions subcut .COMPLEX 02/27/24 04/02/24 subcutaneous solution (Lantus U-100 Insulin) insulin lispro 100 unit/mL 4 - 8 unit subcut BID 02/27/24 04/02/24 subcutaneous pen (Humalog KwikPen (U-100) Insulin) acetaminophen 500 mg tablet 1,000 mg (2 x 500 mg) PO Q8H PRN 03/20/24 04/02/24 pain #90 tabs aspirin 81 mg tablet,delayed 81 mg PO BID 30 days #60 tabs 03/20/24 04/02/24 release celecoxib 200 mg capsule (Celebrex) 200 mg PO BID PRN #60 caps 03/20/24 04/02/24 docusate sodium 100 mg capsule 100 mg PO BID #30 caps 03/20/24 04/02/24 (Colace) tramadol 50 mg tablet 50 mg PO Q8H PRN pain #20 tabs 03/30/24 04/02/24 Previous Rx's Medication Instructions Recorded alcohol swabs (Alcohol Prep Pads) 1 pad topical QID To cleanse skin 09/13/18 prior to insulin injections QID. #400 ea psyllium husk 0.4 gram capsule 0.4 g PO DAILY PRN constipation 10/07/22 #30 caps atorvastatin 40 mg tablet 40 mg PO DAILY #90 tab-caps 06/29/23 irbesartan 300 mg tablet See Rx Instructions .Route 11/21/23 .COMPLEX #90 tabs hydrochlorothiazide 12.5 mg tablet 12.5 mg PO DAILY AM #90 tab-caps 01/04/24 trazodone 100 mg tablet 100 mg PO HS PRN insomnia #90 01/04/24 tab-caps mupirocin 2 % topical ointment 1 applic topical TID #15 grams 01/28/24 acetaminophen 500 mg tablet 1,000 mg (2 x 500 mg) PO Q8H PRN 03/20/24 pain #90 tabs aspirin 81 mg tablet,delayed 81 mg PO BID 30 days #60 tabs 03/20/24 release celecoxib 200 mg capsule (Celebrex) 200 mg PO BID PRN #60 caps 03/20/24 docusate sodium 100 mg capsule 100 mg PO BID #30 caps 03/20/24 (Colace) tramadol 50 mg tablet 50 mg PO Q8H PRN pain #20 tabs 03/30/24 Allergies Allergy/AdvReac Type Severity Reaction Status Date / Time enalapril AdvReac Intermediate cough Verified 04/02/24 12:38 codeine AdvReac N/V Verified 04/02/24 12:38 liraglutide AdvReac Other (See Verified 04/02/24 12:38 Comment) Sulfa (Sulfonamide AdvReac NAUSEA Verified 04/02/24 12:38 Antibiotics) General Stated Complaint: GenMedical PIERCE: 3 Review of Systems All systems reviewed & are unremarkable except as noted in HPI and below Constitutional Constitutional: Reports as per HPI, Denies chills, Reports fatigue, Denies fever(s) and Reports lethargy Cardiovascular Cardiovascular: Reports as per HPI, Reports chest pain (Resolved), Reports diaphoresis and Reports lightheadedness Endocrine Endocrine: Reports fatigue Exam Narrative Exam Narrative: Constitutional: Alert and oriented x3. Appears stated age. Normal body habitus. Head: Normocephalic, no trauma. Eyes: Pupils PERRL, Red reflex noted, EOM's intact. Eyelids symmetrical without lesions, discharge, or swelling. ENT: External ear normal to inspection, no mastoid TTP, swelling, or erythema, Nasal turbinates WNL, no nasal discharge. Normal dentition, Posterior pharynx WNL, no exudate. Chest: RRR, Normal S1, S2, distal pulses intact. Resp: Lungs clear to auscultation bilaterally, no wheezes, rales, or rhonchi. Abdomen: Soft, non-distended, Normoactive bowel sounds all 4 quads. Musculoskeletal: Healing incision noted to left anterior knee, no surrounding erythema or swelling. Nonpitting trace edema to bilateral lower extremities Skin: No suspicious rashes or lesions. Capillary refill less than 2 sec. Neurologic: Cranial nerves II-XII intact. Alert and oriented x 3. Motor: No deficits noted. Sensory: Intact bilaterally all 4 extremities. Slight intention tremor noted. Hematologic/Lymphatic: No ecchymosis, no lymphadenopathy. Course Vital Signs Vital signs: Vital Signs Temperature 36.3 C L 04/02/24 12:34 Pulse 57 L 04/02/24 12:34 Respiratory Rate 14 04/02/24 12:34 Blood Pressure 87/47 L 04/02/24 12:34 Pulse Oximetry 95 04/02/24 12:34 Temperature 37.3 C 04/02/24 13:33 Temperature Source Temporal Artery Scan 04/02/24 13:33 Pulse 63 04/02/24 14:39 Respiratory Rate 18 04/02/24 14:39 Respiratory Effort Normal 04/02/24 13:33 Respiratory Depth Normal 04/02/24 13:33 Respiratory Pattern Normal 04/02/24 13:33 Blood Pressure 124/46 L 04/02/24 14:46 Blood Pressure Position Sitting 04/02/24 13:33 Pulse Oximetry 95 04/02/24 14:39 Oxygen Delivery Method Room Air 04/02/24 14:39 Oxygen Flow Rate 0 04/02/24 14:39 Pain Level 0 04/02/24 13:33 Comment sitting with feet dangling on edge 04/02/24 14:46 Lab/Test Results Lab/Test Results: Laboratory Tests Range/Units 04/02/24 13:46 WBC (4.4-10.8) 10^3/uL 9.98 RBC (3.93-5.22) 10^6/uL 4.00 Hgb (11.2-15.7) g/dL 12.3 Hct (36.0-46.0) % 37.6 MCV (80-95) fL 94 MCH (27.0-33.0) pg 30.8 MCHC (32.0-36.0) % 32.7 RDW (11.7-14.6) % 12.9 Plt Count (130-400) 10^3/uL 315 MPV (8.0-11.0) fL 8.7 Immature Gran % % 0.5 Neutrophils % % 81.2 Lymphocytes % % 10.9 Monocytes % % 4.7 Eosinophils % % 2.0 Basophils % % 0.7 Nucleated RBC % (0.0-0.3) % 0.0 Absolute Neutrophils (1.2-6.7) 10^3/uL 8.10 H Absolute Lymphocytes (1.2-3.4) 10^3/uL 1.09 L Absolute Monocytes (0.1-0.8) 10^3/uL 0.47 Absolute Eosinophils (0.0-0.7) 10^3/uL 0.20 Absolute Basophils (0.0-0.2) 10^3/uL 0.07 Sodium (136-145) mmol/L 136 Potassium (3.5-5.1) mmol/L 4.4 Chloride (98-107) mmol/L 101 Carbon Dioxide (21.0-32.0) mmol/L 25.0 Anion Gap (3-11) mmol/L 10.0 BUN (7-18) mg/dL 26 H Creatinine (0.55-1.02) mg/dL 1.6 H Est GFR (CKD-EPI 2020) (mL/min/1.73m2) 32.60 Glucose (74-106) mg/dL 266 H Calcium (8.5-10.1) mg/dL 9.4 Magnesium (1.8-2.4) mg/dL 2.2 Total Bilirubin (0.2-1.0) mg/dL 0.55 AST (15-37) U/L 22 ALT (14-59) U/L 20 Alkaline Phosphatase (46-116) U/L 78 Troponin I (< or =60) ng/L < 50 Total Protein (6.4-8.2) g/dL 6.5 Albumin (3.4-5.0) g/dL 3.0 L Medical Decision Making 78-year-old female presents to the ER with a chief complaint of low blood pressure, near syncopal episode while after seeing orthopedics today. She was due to follow-up appointment after having a left total knee replacement 2 weeks ago. Patient is a diabetic and had some recent changes to her insulin regimen. She reports that her sugar has been going high. Upon arrival her blood sugar was 171, she did take 5 units of Humalog this morning and 10 units again this morning. She does take Lantus 15 units which she did take this morning at breakfast. She usually takes Lantus twice daily. She does report constipation denies any heme positive or black tarry stools or blood in her stools denies any abdominal pain. Questionable intermittent chest pain denies any shortness of breath. She was not recently admitted for surgery due to low blood pressure for approximately 48 hours. She does have a follow-up appointment with Dr. Arleen Schmidt. She does take hydrochlorothiazide and irbsartain for her blood pressure. EKG was reviewed by Dr. Davis and myself ER attending, sinus bradycardia, old EKG available for review no significant ST changes or ischemia noted. PCP paged to consult with Dr. Schmidt regarding patient's blood pressure meds. Cardiac workup ordered including CBC CMP serial troponins EKG was done on arrival. She does have a glucose monitor at this time her BGL is 355, BUN is 26 creatinine 1.6 GFR 32 which is her baseline. Spoke with Arleen Schmidt, KELVIN who is patient's PCP regarding blood pressure and she recommends holding the hydrochlorothiazide and half dose of irbsarten at this time. She does have an appointment next week but they will see her sooner. Serial troponin within normal limits. Discussed home care with patient and family strict return instructions they verbalized understanding. Patient remained hemodynamically stable throughout the remainder of her stay blood pressure on discharge was 114/38. Patient did speak back to me to hold her hydrochlorothiazide and decrease her irbesartan by half. This text was generated using [employer] system, please disregard any oddities of phrase or misspellings. Medical Records Medical records reviewed: Yes I reviewed the patient's medical records. Lab Data Lab results reviewed: Yes I reviewed the patient's lab results. Labs: Laboratory Tests Range/Units 04/02/24 13:46 WBC (4.4-10.8) 10^3/uL 9.98 RBC (3.93-5.22) 10^6/uL 4.00 Hgb (11.2-15.7) g/dL 12.3 Hct (36.0-46.0) % 37.6 MCV (80-95) fL 94 MCH (27.0-33.0) pg 30.8 MCHC (32.0-36.0) % 32.7 RDW (11.7-14.6) % 12.9 Plt Count (130-400) 10^3/uL 315 MPV (8.0-11.0) fL 8.7 Immature Gran % % 0.5 Neutrophils % % 81.2 Lymphocytes % % 10.9 Monocytes % % 4.7 Eosinophils % % 2.0 Basophils % % 0.7 Nucleated RBC % (0.0-0.3) % 0.0 Absolute Neutrophils (1.2-6.7) 10^3/uL 8.10 H Absolute Lymphocytes (1.2-3.4) 10^3/uL 1.09 L Absolute Monocytes (0.1-0.8) 10^3/uL 0.47 Absolute Eosinophils (0.0-0.7) 10^3/uL 0.20 Absolute Basophils (0.0-0.2) 10^3/uL 0.07 Sodium (136-145) mmol/L 136 Potassium (3.5-5.1) mmol/L 4.4 Chloride (98-107) mmol/L 101 Carbon Dioxide (21.0-32.0) mmol/L 25.0 Anion Gap (3-11) mmol/L 10.0 BUN (7-18) mg/dL 26 H Creatinine (0.55-1.02) mg/dL 1.6 H Est GFR (CKD-EPI 2020) (mL/min/1.73m2) 32.60 Glucose (74-106) mg/dL 266 H Calcium (8.5-10.1) mg/dL 9.4 Magnesium (1.8-2.4) mg/dL 2.2 Total Bilirubin (0.2-1.0) mg/dL 0.55 AST (15-37) U/L 22 ALT (14-59) U/L 20 Alkaline Phosphatase (46-116) U/L 78 Troponin I (< or =60) ng/L < 50 Total Protein (6.4-8.2) g/dL 6.5 Albumin (3.4-5.0) g/dL 3.0 L ECG Data Prior ECG tracings: available for review Core Measures Measure exclusions: not indicated Quality:[facility] Health Related Social Needs: No Data to Display PFSH All Active Problems (Updated 04/02/24 @ 15:51 by Yu Bowers NP) Hypotension (Acute) Near syncope (Acute) History of total left knee replacement (Acute 03/20/24) Hyperglycemia due to diabetes mellitus (Acute) Retinopathy, diabetic, bilateral (Acute) [place] Note 07/25/23 Pain in right ankle (Acute) Pain in left ankle (Acute) Pain in joint, foot, left (Acute) Anxiety (Chronic) GERD (gastroesophageal reflux disease) (Chronic) Asymptomatic varicose veins (Chronic 03/06/12) DONALD LEFT LEG Lipoma of back (Chronic 04/12/16) MRI confirmed 2016 (not bothersome) Other and unspecified hyperlipidemia (Chronic 11/23/11) Lumbago (Chronic 07/21/12) Sleep disturbance, unspecified (Chronic 09/26/07) heavy snoring, declined 05/2011, delined 06/2018 Essential hypertension (Chronic) Arthralgia (Acute 11/23/11) Type 2 diabetes mellitus with retinopathy of both eyes, with long-term current use of insulin (Chronic) [facility] [place] Endo manages 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 Arthritis of right knee (Acute) DEPO injection 01/27/24; 07/29/21 Elevated LFTs (Acute) Nail dystrophy (Acute) Foot pain, right (Acute) CKD (chronic kidney disease) (Chronic) Anxiety (Chronic) Sinus tarsi syndrome of right foot (Acute) Venous insufficiency (Acute) PAD (peripheral artery disease) (Acute) Medical History Retinal hemorrhage (11/23/11) Plantar fasciitis of right foot Surgical History History of total abdominal hysterectomy and bilateral salpingo-oophorectomy (~1970) Reports her right ovary is present Had appendix removed Oophrectomy, Left 1970's Flex laryngoscopy (07/31/15) Excision, Lipoma (11/17/17) left upper shoulder Colonoscopy - MAC (10/31/17) Cholecystectomy Biopsy of breast 1984 L benign Adenoidectomy Family History Other Heart disease Hypothyroidism Mental disorder Social History Smoking/Tobacco Use Status: Former Tobacco Use tobacco type: cigarettes Quit Date: 09/26/86 Tobacco: How many years used: 15 Smoking risk assessment performed?: Yes Alcohol Intake: current Alcohol Intake frequency: holidays/special occasions only Drug use: Never Substance use type: does not use Caregiver/Support person: No Household members: spouse Housing: house Number of Children: 2 Communication Needs: None Pets and animals: No Current gender identity: female What type of physical activity do you participate in: none Seatbelt use: always Do you feel safe at home: Yes Additional Social history: MACEY
[2024-04-02 16:14] LABS: Troponin I < 50 ng/L (< or =60)
== END 2024-04-02 16:47 | disposition home or self-care (01) ==
PROVIDERS: Emergency Provider Registered Nurse Emergency; PCP Nurse Practitioner
DX: R42 Dizziness and giddiness (principal); R55 Syncope and collapse; I95.9 Hypotension, unspecified; E11.319 Type 2 diabetes mellitus with unspecified diabetic retinopathy without macular edema; Z79.4 Long term (current) use of insulin; Z79.84 Long term (current) use of oral hypoglycemic drugs; Z79.82 Long term (current) use of aspirin; Z87.891 Personal history of nicotine dependence
CPT/HCPCS: 36415; 80053; 82962; 93005; 96360; 96361; 99284; 77073; 83735; 84484; 85025; 93010

== ENCOUNTER → 2024-04-06 17:06 | Outpatient (CLI) | payer MEDICARE, BC, SELFPAY ==
--- NOTE | 2024-04-06 14:25 | DI.RAD_ITS ---
Exam(s) XR ABDOMEN FLAT UPRIGHT EXAM: 2D digital imaging was performed. CLINICAL HISTORY: Constipation, K59.00, r/o obstipation; leakage @ obstruction?. COMPARISON: No exams were available for comparison TECHNIQUE: Supine and uprightSupine and Lateral views of the abdomen were performed. FINDINGS: BOWEL GAS PATTERN: Large quantity of stool seen throughout the colon. Small bowel nondistended.No fr ee air. The aorta is calcified. Right upper quadrant surgical clips. CALCIFICATIONS: No visible urinary tract calcifications. Kidneys somewhat obscured by overlying stoo l. OSSEOUS STRUCTURES: Degenerative changes in the spine. Visualized portions of chest: Unremarkable. IMPRESSION: 1. Nonobstructive bowel gas pattern. Large quantity of stool consistent with constipation. DATA REPOSITORY: RADIATION DOSE DELIVERED:
== END ==
PROVIDERS: PCP Nurse Practitioner; Visit Provider Student in an Organized Health Care Education/Training Program
DX: K59.00 Constipation, unspecified (principal)
CPT/HCPCS: 74019

== ENCOUNTER 2024-04-30 14:28 | Outpatient (CLI) | payer MEDICARE, BC, SELFPAY ==
--- NOTE | 2024-04-30 14:15 | DI.RAD_ITS ---
Exam(s) XR KNEE LT 1V EXAM: XR KNEE LT 1V CLINICAL HISTORY: s/p surgery. TECHNIQUE: 2D digital imaging was performed. Single lateral upright view COMPARISON: CR XR KNEE LT 1V from 01/27/2024 CR XR STANDING ALIGNMENT from 04/02/2024 CR XR ABDOMEN FLAT UPRIGHT from 04/06/2024 FINDINGS: BONES: No acute fracture is present. No bony destructive lesion is seen. Stable alignment of total k nee prosthesis. No abnormal surrounding bony lucencies. Small enthesophyte upper pole of the patell a. JOINTS: The knee prosthesis is normally aligned. No joint effusion is seen. SOFT TISSUE: Mild anterior soft tissue swelling. IMPRESSION: Satisfactory postoperative appearance based on this single view. DATA REPOSITORY: RADIATION DOSE DELIVERED:
== END 2024-04-30 14:29 | disposition home or self-care (01) ==
LOC: DIORS 14:28
PROVIDERS: PCP Nurse Practitioner; Referring Provider Nurse Practitioner; Visit Provider Student in an Organized Health Care Education/Training Program
DX: Z47.1 Aftercare following joint replacement surgery (principal); Z96.652 Presence of left artificial knee joint
CPT/HCPCS: 73560

== ENCOUNTER → 2024-06-11 10:10 | Outpatient (BNVA) | payer MEDICARE, BC, SELFPAY | PROVIDERS: PCP Nurse Practitioner; Referring Provider Nurse Practitioner; Visit Provider Student in an Organized Health Care Education/Training Program | DX: Z47.1 Aftercare following joint replacement surgery (principal); Z96.652 Presence of left artificial knee joint ==

== ENCOUNTER → 2024-06-18 13:50 | Outpatient (BNVA) | payer MEDICARE, BC, SELFPAY | PROVIDERS: PCP Nurse Practitioner; Referring Provider Nurse Practitioner; Visit Provider Podiatrist | DX: E11.319 Type 2 diabetes mellitus with unspecified diabetic retinopathy without macular edema (principal); Z79.4 Long term (current) use of insulin; I73.89 Other specified peripheral vascular diseases; M25.571 Pain in right ankle and joints of right foot; M25.572 Pain in left ankle and joints of left foot; Z96.652 Presence of left artificial knee joint; R60.0 Localized edema; R26.89 Other abnormalities of gait and mobility; L60.2 Onychogryphosis | CPT/HCPCS: 11719; 11720 ==

== ENCOUNTER → 2024-11-21 10:28 | Outpatient (BNVA) | payer MEDICARE, BC, SELFPAY | PROVIDERS: PCP Nurse Practitioner; Referring Provider Nurse Practitioner; Visit Provider Podiatrist | DX: M25.571 Pain in right ankle and joints of right foot (principal); M25.572 Pain in left ankle and joints of left foot; I73.89 Other specified peripheral vascular diseases; E11.319 Type 2 diabetes mellitus with unspecified diabetic retinopathy without macular edema; Z79.4 Long term (current) use of insulin; M79.671 Pain in right foot; R60.0 Localized edema; L60.1 Onycholysis | CPT/HCPCS: 11719 ==

== ENCOUNTER → 2024-12-03 08:03 | Outpatient (BNVA) | payer MEDICARE, BC, SELFPAY | PROVIDERS: PCP Nurse Practitioner; Referring Provider Nurse Practitioner | DX: M17.11 Unilateral primary osteoarthritis, right knee (principal) | CPT/HCPCS: 20610; 99213; J1010 ==

== ENCOUNTER 2025-03-05 09:46 | Outpatient (CLI) | payer MEDICARE, BC, SELFPAY ==
--- NOTE | 2025-03-05 09:45 | RT.EKG_ITS ---
APPROVED REPORT Exam: Resting ECG Reason for Exam: Preoperative evaluation Patient Location: O HR:56 bpm ECG Measurements Heart Rate 56 AXIS AZ 159 P 47 QRSd 95 QRS -74 QT 448 T 3 QTc 433 Conclusion Sinus rhythm...normal P axis, V-rate 50- 99 Left anterior fascicular block...axis(240,-40), init forces inf Abnormal R-wave progression, late transition...QRS area<0 in V5/V6
== END 2025-03-05 09:47 | disposition home or self-care (01) ==
LOC: DI.KIM 09:47
PROVIDERS: PCP Nurse Practitioner; Visit Provider Nurse Practitioner Family
DX: Z01.818 Encounter for other preprocedural examination (principal); I44.4 Left anterior fascicular block
CPT/HCPCS: 93010

== ENCOUNTER 2025-03-08 01:35 | Outpatient (CLI) | payer MEDICARE, BC, SELFPAY ==
[2025-03-08 08:43] LABS: HCT 41.9 % (36.0-46.0); HGB 13.1 g/dL (11.2-15.7); MCH 27.9 pg (27.0-33.0); MCHC 31.3 % (32.0-36.0); MCV 89 fL (80-95); MPV 9.1 fL (8.0-11.0); Platelet Count 250 10^3/uL (130-400); RBC 4.69 10^6/uL (3.93-5.22); RDW 13.5 % (11.7-14.6); RDW-SD 43.8 fL; WBC 5.52 10^3/uL (4.4-10.8)
[2025-03-08 08:54] LABS: Anion Gap 6.2 mmol/L (3-11); BUN 21 mg/dL (7-18); CO2 29.8 mmol/L (21.0-32.0); CREATININE 1.3 mg/dL (0.55-1.02); Calcium 8.9 mg/dL (8.5-10.1); Chloride 104 mmol/L (98-107); Estimated GFR 41.57 (mL/min/1.73m2); Glucose 145 mg/dL (74-106); Potassium 4.5 mmol/L (3.5-5.1); Sodium 140 mmol/L (136-145)
== END 2025-03-08 01:36 | disposition home or self-care (01) ==
LOC: LBO 01:35
PROVIDERS: PCP Nurse Practitioner; Visit Provider Student in an Organized Health Care Education/Training Program
DX: M17.11 Unilateral primary osteoarthritis, right knee (principal); Z01.818 Encounter for other preprocedural examination; E11.9 Type 2 diabetes mellitus without complications; G47.00 Insomnia, unspecified
CPT/HCPCS: 36415; 80048; 85027; 99024

== ENCOUNTER 2025-03-08 12:49 | Outpatient (REF) | payer MEDICARE, BC, SELFPAY ==
[2025-03-10 12:43] LABS: Fructosamine 295 mcmol/L (200 - 285)
== END 2025-03-08 12:50 | disposition home or self-care (01) ==
LOC: LBN 12:49
PROVIDERS: PCP Nurse Practitioner; Visit Provider Student in an Organized Health Care Education/Training Program
DX: E11.9 Type 2 diabetes mellitus without complications (principal); Z01.818 Encounter for other preprocedural examination; M17.11 Unilateral primary osteoarthritis, right knee
CPT/HCPCS: 82985

== ENCOUNTER → 2025-03-18 13:49 | Outpatient (BNVA) | payer MEDICARE, BC, SELFPAY | PROVIDERS: PCP Nurse Practitioner; Referring Provider Nurse Practitioner; Visit Provider Podiatrist | DX: L60.3 Nail dystrophy (principal); I73.89 Other specified peripheral vascular diseases; E11.319 Type 2 diabetes mellitus with unspecified diabetic retinopathy without macular edema; Z79.4 Long term (current) use of insulin; N18.31 Chronic kidney disease, stage 3a; R09.89 Other specified symptoms and signs involving the circulatory and respiratory systems; R60.0 Localized edema; I83.93 Asymptomatic varicose veins of bilateral lower extremities; L65.9 Nonscarring hair loss, unspecified; R23.8 Other skin changes; L60.2 Onychogryphosis | CPT/HCPCS: 11721 ==

== ENCOUNTER 2025-03-19 07:04 | Day surgery (SDC) | payer MEDICARE, BC, SELFPAY ==
[2025-03-19] VITALS (16 sets, daily range): BP systolic 126–194; BP diastolic 45–109; PULSE 44–92; RESP 14–18; TEMP 36–36.7; O2SAT 94–100; BMI 33.4
--- NOTE | 2025-03-19 07:19 | W.PM.DSUDISC ---
Date of service: 03/19/25 Discharge Plan Disposition Patient Disposition: Home Condition: Good Discharge Details Reason For Visit: Right knee DJD Attending Provider: Nadir Serrano Primary Care Provider: Jossy Roman Home Meds and New Rx's Prescriptions: New acetaminophen 500 mg tablet 1,000 mg PO Q8H PRN Qty: 90 0RF Rx Instructions: Take two tablets up to every 8 hours as needed for pain aspirin 81 mg tablet,delayed release (DR/EC) 81 mg PO BID 30 Days Qty: 60 0RF celecoxib [Celebrex] 200 mg capsule 200 mg PO BID PRNQty: 60 0RF Rx Instructions: Take one tablet twice daily for pain and inflammation docusate sodium [Colace] 100 mg capsule 100 mg PO BID Qty: 28 0RF gabapentin 300 mg capsule 300 mg PO QHS Qty: 14 0RF Rx Instructions: Take one tablet at bedtime oxycodone 5 mg tablet 5 mg PO Q4H PRNQty: 18 0RF Rx Instructions: Take one tablet up to every 4 hours as needed for severe postoperative pain pantoprazole 40 mg tablet,delayed release (DR/EC) 40 mg PO DAILY Qty: 14 0RF Continued ketoconazole 2 % cream See Rx Instructions topical DAILY Qty: 30 11RF Rx Instructions: 1 gram topically daily; Apply total of 1gram to all toenails daily. Apply separately from the Urea cream. citalopram 10 mg tablet 10 mg PO DAILY trazodone 100 mg tablet 100 mg PO HS docusate sodium [Colace] 100 mg capsule 100 mg PO DAILY PRN (Reason: constipation) insulin lispro [Humalog KwikPen Insulin] 100 unit/mL insulin pen See Rx Instructions subcut DAILY Rx Instructions: see complex directions subcutaneously daily; 02/06/25 6-10U ac breakfast, 14-18 ac lunch and dinner (per [facility] calcium carbonate [Caltrate 600] 600 MG tablet 600 mg PO PRN Patient Comments: Fish Oil 1 EACH capsule 1 ea PO Q3D Patient Comments: Rx Instructions: 2X'S WEEK polyethylene glycol 3350 [Miralax] 527 GM powder 17 g PO DAILY PRNQty: 1 alcohol swabs [Alcohol Prep Pads] pads, medicated 1 pad TP QID Qty: 400 3RF Rx Instructions: Dx: E11.9 Jardiance 25 mg tablet 25 mg PO DAILY (DME) Dexcom G7 Roll Hauler Misc See Rx Instructions .Route Rx Instructions: As directed (DME) Dexcom G7 Sensor Device See Rx Instructions .Route Rx Instructions: As directed irbesartan 150 mg tablet 150 mg PO DAILY Qty: 90 3RF insulin glargine [Lantus U-100 Insulin] 100 unit/mL solution See Rx Instructions subcut .COMPLEX Rx Instructions: 02/24/24 20 units before breakfast and 10 units after dinner (not at bedtime) subcutaneously. cholecalciferol (vitamin D3) [Vitamin D3] 1,000 UNIT capsule 1,000 unit PO DAILY Discontinued pantoprazole 40 mg tablet,delayed release (DR/EC) 40 mg PO DAILY PRN PRN Patient Comments: pt states only takes when she needs it Rx Instructions: Take 40 mg once daily in the morning on an empty stomach, at least 20-30 minutes before meal aspirin 81 mg tablet,delayed release (DR/EC) Patient Comments: TAKE ONE TABLET BY MOUTH TWICE A DAY naproxen sodium [Aleve] 220 mg capsule 440 mg PO ONCE PRN (Reason: pain) Discharge Instructions Additional Instructions: Total Knee Discharge Instructions Activity: The most important activity is to walk and to work on gentle motion (both flexion and extension). You should try to take short walks a few times a day. It is important that when resting you work on keeping the knee straight. Avoid putting a pillow behind the knee as this will encourage flexion. Work on range of motion exercises as provided by Physical Therapy. - Start outpatient physical therapy within 2 weeks. - You should wear the TIA hose on both legs for 2 weeks. You may remove these at night. You may also use any compression sock in place of the TIA hose. - Utilize [employer] to review exercises, see videos on exercises and obtain basic information pertaining to your surgery and your recovery. Dressing: Remove the Syd wrap by 2 days after your surgery and put on the TIA stocking given to you from the hospital. Keep the surgical dressing (underneath the SYD wrap) in place for at least one week. After the first week it may be removed and replaced with light gauze and tape or nothing. The wound and dressing may get wet after 3 days but avoid soaking the dressing or otherwise it will need to be changed. Many people prefer covering the dressing with cling wrap (saran wrap) to minimize it from getting soaked. If it gets wet, just pat dry. If it starts to peel off then it will need to be changed. Medications: - You should take Tylenol and anti-inflammatory Celebrex as your primary pain control medications. If the Celebrex is too expensive or not covered, please call the office for another alternative (Advil/Ibuprofen or Naproxen/Aleve) - You have been prescribed a stronger pain medication Oxycodone for breakthrough pain, take as needed as prescribed. - You have been prescribed a stomach acid reduction agent Pantoprozole at baseline - continue with this medication to help reduce stomach acid and reflux. - You have been prescribed Gabapentin to take at night for restlessness and nerve pain. - You will be taking Aspirin 81mg twice a day for DVT prevention unless instructed otherwise. - If you have constipation you should take Colace (which has been prescribed) or Miralax (which is available [id number]). It takes most people 3-4 days to have a bowel movement. Follow-up: 2 weeks If you have any acute concerns or questions, please do not hesitate to contact the office at [phone]. You may contact Dr. Serrano with any questions after hours through the hospital at [phone] or on his cell phone at [phone]. Stand Alone Forms: Anesthesia Discharge InstChris Gamble.Nerve Block Instructions, Nicolasa Yin ([facility]) Referrals: Nadir Serrano MD [ [facility] STAFF PHYSICIAN, Orthopaedic Surgical] - 04/01/25 11:00 am Equipment/Supplies: Walker Activity:: Elevate Remove Dressings/Wound Care:: Do Not Remove Shower/Bathe:: Cover Diet:: As Tolerated Discharge Orders Discharge Orders: Discharge Order (Routine); Ordered 03/19/25 Ordered By: Sybil Kelsey
[2025-03-19] MEDS: Acetaminophen 500 MG TAB 1000 MG PO (07:53)
[2025-03-19] MEDS: Gabapentin 300 MG CAP PO (07:53)
[2025-03-19] MEDS: Celecoxib 200 MG CAP 400 MG PO (07:53)
[2025-03-19] MEDS: Lactated Ringers 1,000 ML 80 ML IV (08:09)
--- NOTE | 2025-03-19 08:21 | W.ANESPRE ---
General Info Date of Service Date Performed: 03/19/25 Height: 5 ft 2 in Weight: 82.9 kg Body Mass Index (BMI): 33.4 Surgical Procedure: Operation Date: 03/19/25 09:40 Proposed Procedure Side Surgeon p Knee Total Arthroplasty Right Nadir Serrano MD Meds Allergies and Home Medications Allergies Allergy/AdvReac Type Severity Reaction Status Date / Time enalapril AdvReac Intermediate cough Verified 03/19/25 07:21 atorvastatin AdvReac LFT Verified 03/19/25 07:21 elevation codeine AdvReac N/V Verified 03/19/25 07:21 liraglutide AdvReac Other (See Verified 03/19/25 07:21 Comment) Sulfa (Sulfonamide AdvReac NAUSEA Verified 03/19/25 07:21 Antibiotics) Home Medication ?Medication ?Instructions ?Recorded calcium carbonate (Caltrate 600) 600 mg PO PRN 12/15/12 omega-3 fatty acids-fish oil 340 1 ea PO Q3D 12/15/12 mg-1,000 mg capsule (Fish Oil) polyethylene glycol 3350 17 17 g PO DAILY PRN ##1 12/02/14 gram/dose oral powder (Miralax) cholecalciferol (vitamin D3) 25 1,000 unit PO DAILY 10/26/17 mcg (1,000 unit) capsule (Vitamin D3) alcohol swabs (Alcohol Prep Pads) 1 pad topical QID To cleanse skin 09/13/18 prior to insulin injections QID. #400 ea pantoprazole 40 mg tablet,delayed 40 mg PO DAILY PRN PRN 05/10/20 release docusate sodium 100 mg capsule 100 mg PO DAILY PRN constipation 06/19/21 (Colace) blood-glucose sensor (Dexcom G7 04/22/23 Sensor device) blood-glucose,cotton tipper,cont 04/22/23 (Dexcom G7 Food Quality Technician) empagliflozin 25 mg tablet 25 mg PO DAILY 04/22/23 (Jardiance) irbesartan 150 mg tablet 150 mg PO DAILY #90 tabs 07/16/24 insulin glargine 100 unit/mL See Rx Instructions subcut .COMPLEX 03/05/25 subcutaneous solution (Lantus U-100 Insulin) insulin lispro 100 unit/mL See Rx Instructions subcut DAILY 03/05/25 subcutaneous pen (Humalog KwikPen (U-100) Insulin) citalopram 10 mg tablet 10 mg PO DAILY 03/08/25 trazodone 100 mg tablet 100 mg PO HS insomnia 03/08/25 ketoconazole 2 % topical cream See Rx Instructions topical DAILY 03/18/25 Held on 03/19/25. #30 grams Instructions: Pt Stopped/Never Started aspirin 81 mg tablet,delayed mg 03/19/25 release naproxen sodium 220 mg capsule 440 mg PO ONCE PRN pain 03/19/25 (Jillian) Current Visit Medications: Current Medications Generic Name Dose Route Start Last Admin Trade Name Freq PRN Reason Stop Dose Admin Acetaminophen 1,000 mg 03/19/25 06:00 03/19/25 07:53 Acetaminophen 500 Mg Tab PO 03/19/25 23:59 1,000 mg PREOP RAS Administration Celecoxib 400 mg 03/19/25 06:00 03/19/25 07:53 Celecoxib 200 Mg Cap PO 03/19/25 23:59 400 mg PREOP RAS Administration Gabapentin 300 mg 03/19/25 06:00 03/19/25 07:53 Gabapentin 300 Mg Cap PO 03/19/25 23:59 300 mg PREOP RAS Administration Hydromorphone HCl 0.5 mg 03/19/25 07:15 Hydromorphone 2 Mg/Ml Syr IVP 04/18/25 07:14 Q2H PRN PRN Ringer's Solution 1,000 mls @ 80 mls/hr 03/19/25 06:00 03/19/25 08:09 IV 03/19/25 23:59 80 mls/hr INFUSION RAS Administration Cefazolin Sodium/Dextrose 2 gm in 50 mls @ 100 mls/hr 03/19/25 06:00 Ancef Duplex IVPB 03/19/25 23:59 PREOP RAS Tranexamic Acid/Sodium Chloride 1,000 mg in 100 mls @ 600 mls/hr 03/19/25 06:00 IVPB 03/19/25 23:59 PREOP RAS Cefazolin Sodium/Dextrose 1 gm in 50 mls @ 100 mls/hr 03/19/25 08:00 Ancef Duplex IVPB 03/20/25 00:29 Q8H RAS IV Miscellaneous Supplies 1 each 03/19/25 06:00 Iv Access IV 03/19/25 23:59 DIRECTED RAS Oxycodone HCl 0 mg 03/19/25 07:15 Oxycodone 5 Mg Tab PO 04/18/25 07:14 Q3H PRN PRN Pain Sodium Chloride 0 ml 03/19/25 06:00 Normal Saline Flush 10 Ml Syr IV 03/19/25 23:59 PRN PRN Sodium Chloride 0 ml 03/19/25 06:00 Normal Saline 10 Ml Vial IJ 03/19/25 23:59 DIRECTED PRN Sterile Water 0 ml 03/19/25 06:00 Water,Injection,Sterile 10 Ml Vial IJ 03/19/25 23:59 DIRECTED PRN Tranexamic Acid 1,300 mg 03/19/25 07:15 Tranexamic Acid 650 Mg Tab PO 04/18/25 07:14 ONCE PRN postoperative PFSH Active Problems Active Problems: Problem Status Onset Code History of total right knee replacement Acute 03/19/25 Z96.651 Pre-op exam Acute Z01.818 Diabetes type 2, controlled Acute E11.9 Hyperglycemia due to diabetes mellitus Acute E11.65 Retinopathy, diabetic, bilateral Acute E11.319 Pain in right ankle Acute M25.571 Pain in left ankle Acute M25.572 Pain in joint, foot, left Acute M25.572 Anxiety Chronic GERD (gastroesophageal reflux disease) Chronic Asymptomatic varicose veins Chronic 03/06/12 I83.90 Lipoma of back Chronic 04/12/16 D17.1 Other and unspecified hyperlipidemia Chronic 11/23/11 E78.5 Lumbago Chronic 07/21/12 M54.5 Sleep disturbance, unspecified Chronic 09/26/07 G47.9 Essential hypertension Chronic I10 Arthralgia Acute 11/23/11 M25.50 Type 2 diabetes mellitus with retinopathy of both eyes, with long-term current use of insulin Chronic E11.319, Z79.4 Elevated LFTs Acute R79.89 Nail dystrophy Acute L60.3 CKD (chronic kidney disease) Chronic N18.9 Sinus tarsi syndrome of right foot Acute M25.571 Venous insufficiency Acute I87.2 PAD (peripheral artery disease) Acute I73.9 Medical History Medical History Hypertensive retinopathy of both eyes 09/28/24 [facility] Retinal hemorrhage (11/23/11) Plantar fasciitis of right foot Surgical History Surgical History History of total left knee replacement (03/20/24) History of total abdominal hysterectomy and bilateral salpingo-oophorectomy (~1969) Reports her right ovary is present Had appendix removed Oophrectomy, Left 1969's Flex laryngoscopy (07/31/15) Excision, Lipoma (11/17/17) left upper shoulder Colonoscopy - MAC (10/31/17) Cholecystectomy Biopsy of breast 1984 L benign Adenoidectomy Tobacco Smoking/Tobacco Use Status: Former Tobacco Use Passive smoking exposure: No Alcohol Alcohol Intake: current Alcohol intake frequency: holidays/special occasions only Substance Use Substance use: Never Substance use type: does not use Vital Signs and Lab Results Vital Signs Most Recent Vital Signs in EMR: Most Recent Vital Signs Temp Pulse Resp BP Pulse Ox 36.7 C 92 H 18 194/64 H 100 03/19/25 07:35 03/19/25 07:35 03/19/25 07:35 03/19/25 08:13 03/19/25 07:35 Lab Results Complete Blood Count: WBC, (4.4-10.8) 5.52 10^3/uL 03/08/25, 08:30 RBC, (3.93-5.22) 4.69 10^6/uL 03/08/25, 08:30 Hgb, (11.2-15.7) 13.1 g/dL 03/08/25, 08:30 Hct, (36.0-46.0) 41.9 % 03/08/25, 08:30 Plt Count, (130-400) 250 10^3/uL 03/08/25, 08:30 Complete Metabolic Panel: Sodium, (136-145) 140 mmol/L 03/08/25, 08:30 Potassium, (3.5-5.1) 4.5 mmol/L 03/08/25, 08:30 Chloride, (98-107) 104 mmol/L 03/08/25, 08:30 Carbon Dioxide, (21.0-32.0) 29.8 mmol/L 03/08/25, 08:30 BUN, (7-18) 21 mg/dL H 03/08/25, 08:30 Creatinine, (0.55-1.02) 1.3 mg/dL H 03/08/25, 08:30 Est GFR (CKD-EPI 2020), (mL/min/1.73m2) 41.57 03/08/25, 08:30 Calcium, (8.5-10.1) 8.9 mg/dL 03/08/25, 08:30 Glucose, (74-106) 145 mg/dL H 03/08/25, 08:30 Hemoglobin A1c, (4.5-5.7) 7.8 % H 03/05/25, 15:55 Anesthesia Assessment and Plan Anesthesia History Personal History: No History of Anesthesia Complications Family History: No Family History of Anesthesia Complications Exercise Tolerance Exercise Tolerance: Metabolic Equivalents<4 Pertinent Negatives Pertinent Negatives: No Symptoms of GERD, No Major Cardiovascular Symptoms or Complaints and No Major Pulmonary Symptoms or Complaints Cardiac & Pulmonary Exam Cardiac Exam: Normal S1/S2 Heart Sounds Pulmonary Exam: Clear Bilateral Breath Sounds Implantable Cardiac Device Does patient have a Pacemaker or an ICD?: No Airway Exam Known Difficult Airway: No Mallampati Class: 2 Mouth Opening: Normal (> 3cm) Thyromental Distance: Greater than 3 cm Neck Range of Motion: Full ROM Neck Circumference: Thick Teeth Condition: Normal Dentition and Loose or Chipped Airway Comments: Discussed possibility of dislodging tooth if airway manipulation ASA Classification ASA Score: ASA 3 Emergency Case?: No NPO Status NPO Status: NPO Clears >2 hours, Solids >8 hours Anesthesia Plan Resuscitation Status: Full Code Anesthesia Technique: Spinal Anesthesia Airway Planned: Natural Airway Pain Management: Surgeon and patient request nerve block Monitors Used: Standard Monitors
[2025-03-19] MEDS: ceFAZolin 2 GM/50 ML BAG IVPB (08:57)
[2025-03-19] MEDS: TRANEXAMIC ACID/SOD. CHL. 1,000 MG/100 ML BAG 600 MG IVPB (09:12)
--- NOTE | 2025-03-19 10:13 | W.ANESNERVE ---
Nerve Block Single Injection Procedure Date and Time Date Performed: 03/19/25 Procedure Start: 08:32 Location Where Procedure Performed Procedure Location: Day Surgery Unit Reason Performed: Postoperative Analgesia Requesting Provider: Nadir Serrano Timeout Performed Timeout Performed: Yes Monitoring Used ECG, Blood Pressure and See EMR for corresponding vital signs Sterility Sterility: Hand Hygiene, Surgical Cap, Surgical Mask, Sterile Gloves and Chlorhexidine Sedation Given During Procedure Sedation Given (Indicate Dose Given): No Sedation given Patient Mental Status Patient Mental Status: Awake Nerve Block 1st Nerve Block: Laterality: Right Block Type: Adductor Canal Ultrasound Image Saved?: Yes Needle / Catheter Used: 100mm SonoPlex II Local Anesthetic Bolus (Indicate Dose Given): Lidocaine used for local infiltration of skin, Injected in 3-5ml increments after negative blood aspiration, Bupivacaine 0.25% Dose:: 10ml and Exparel Dose:: 10ml Additives (Indicate Dose Given): None Ultrasound: Sterile probe cover and gel used Nerve Stimulator: Supplement to Ultrasound use and No twitch or parasthesia noted < 0.5 mA Paresthesia: None Procedure Tolerated: No Complications and Patient tolerated well Procedure Outcome: Successful Performed By: Francisco Fraser
--- NOTE | 2025-03-19 10:20 | W.PM.OP ---
Operative Note Operative Note PRE-OP DIAGNOSIS: Right Knee Osteoarthritis POST-OP DIAGNOSIS: same PROCEDURE: Right Total Knee Replacement SURGEON: Nadir Serrano CASK MAKER: Sybil Kelsey ANESTHESIA TYPE: Spinal Refer to Anesthesia Record ESTIMATED BLOOD LOSS: 250 PATHOLOGY: none sent TOURNIQUET TIME: 0 COMPLICATIONS: None Patient was transported to: PACU Patient's condition: stable Implants: 1. Depuy Attune Cementless Cruciate Retaining Femoral Component, Size 4 2. Depuy Attune Cementless Fixed Bearing Tibial Component, Size 4 3. Depuy Attune 4x8mm CR/FB Poly 4. Depuy Attune Patellar Component, Size 35 Indications: I have seen Annel in clinic for symptoms of knee arthritis, confirmed with radiographic findings. She has exhausted nonoperative methods and was having significant limitations in daily function and desired better function and less pain. I discussed the technical details of a knee replacement. I explained the risks of the procedure to include, but not limited to, bleeding, infection, pain, stiffness, fracture, damage to nerves and vessels, damage to muscles and tendons, loosening, need for repeat procedure, blood clot and cardiopulmonary demise. Despite these risks, Annel elected to proceed. Findings: There was significant signs of arthritis throughout the knee. Procedure Description: Annel was greeted in the preoperative holding area where the correct side was identified and marked. The consent was reviewed with the patient and signed. The history and physical was updated. All questions were answered. Preoperative medications were administered: Acetaminophen 1000mg, Celebrex 400mg, and Gabapentin 300mg. An adductor canal block was then administered by the anesthesia team in the DSU. She was taken back to the operating room. A spinal anesthestic was then administered. The patient was placed into the supine position on the operating room table. Posts were placed for positioning during the procedure. All bony prominences were well padded. Prophylactic antibiotics in the form of Cefazolin were administered. 1g of Tranxemic Acid was given intravenously within 30 minutes of incision. The right leg was then prepped with Chloraprep and draped in a standard fashion with impervious stockinette. A second prep with Chloraprep was performed prior to application of Iodine impregnated skin protection. A timeout to confirm correct identity, side and site, procedure, allergies, anesthesia, and medical concerns was performed. With the knee in some flexion, a midline incision was made overlying the knee. Full thickness skin flaps were raised once the extensor mechanism was encountered. These were raised medially and laterally. Any bleeding was controlled with electrocautery. Once the extensor mechanism was fully exposed, a medial parapatellar arthrotomy was performed in a flexed position. All bleeding from the arthrotomy and the geniculate arteries was coagulated. A medial subperiosteal peel was performed with electrocautery to the midcoronal plane. Due to the significant varus deformity the entire medial tibial plateau was exposed. The fat pad was removed while keeping the patellar tendon protected. The anterior distal femur synovium was removed for later visualization. The ACL and PCL were resected and the anterior horn of the lateral meniscus was transected. The knee was then flexed with the patella everted. Large osteophytes from the tibia were removed. Large osteophytes from the femur were removed. Using a step drill, and based on preoperative templating, the femoral canal was entered. This was done with a step drill without any difficulty. The intramedullary distal femoral cut guide was inserted, set to a 5 degree valgus cut and 9mm cut thickness. The distal femoral cut guide was then held in position and pinned. With the soft tissues protected, the distal cut was performed. This was passed over a few times to ensure a planar cut. I then turned attention to the tibia. The extramedullary guide was placed onto the leg. The distal aspect was slid medial to adjust for position of center of ankle and stay in line with shaft of the tibia. Approximately 3-5 degrees of posterior slope was kept in the proximal cutting guide. The center of the guide was aligned with the PCL. The stylus was used to assess cut thickness. The medial side, most involved side, was set for a 4mm cut. This was then held in position and pinned into place with 2 additional pins and a cross pin for stability. The medial and lateral collateral ligaments were protected and the cut was performed. With this completed, it was assessed and noted to be of appropriate dimensions. The guide was removed. A spacer block was inserted and the knee was brought into extension. The 7mm spacer block provided full extension, without hyperextension and with stability of both the medial and lateral collateral ligaments was assessed. The pins from the femur and the tibia were then removed. The distal femur was then sized. The anterior stylus was placed onto the lateral ridge of the anterior femur. This indicated a size 4 femur. The external rotation of the guide was adjusted to 3 degrees to match the epicondylar axis, perpendicular to [place]?s line. The 4-in-1 cutting guide was the placed. The posterior medial femur cut was evaluated and appeared of good thickness. The spacer block was inserted underneath the cutting guide and stability was confirmed in 90 degrees of flexion. An gloria wing was used to confirm appropriate position of the anterior cut to avoid notching. This cutting guide was ensured to be flush on the cut surface and then pinned into place with headed pins. While protecting the soft tissues, quad tendon, and collateral ligaments, the anterior and posterior cuts were performed with a saw. The central two pins were removed and the posterior and anterior chamfers were cut next. The notch-cutting guide was placed. This was pinned to lateralize the femoral component as much as possible while keeping it flush on the cut surface. This was then pinned into position. A reciprocating saw was used to make the notch cut. A rasp smoothed the cut surfaces. The medial and lateral menisci were removed. A trial femoral component was then inserted, impacted down to the cut surfaces, and the lug holes were drilled. A provisional trial tibial component was placed and the knee was brought through range of motion. The polyethylene was trialed until there was good flexion and extension with excellent stability to the medial and lateral collaterals. The patella was tracking without thumbs. A size 8mm polyethylene component provided the best range of motion and stability with less than 2mm gapping with medial and lateral stress and full extension without significant hyperextension. The tibial cut surface was fully exposed. The tibia was then sized as a 4. The tibia had been previously marked during trialing to correspond to the center of the tibial component to help with rotation. The trial was aligned to this andres, approximately rotated to the medial 1/3rd of the tibial tubercle. The trial was pinned into place. The tibia was prepared with a reamer and a keel punch and lug holes. The knee was then brought into extension and the patella was measured as 22mm. Using the patellar clamp and cut guide, this was resected to a flat surface with at least 13mm of thickness remaining. The size 35 patella fit the best. This was oriented and then clamped into position. The lugs were drilled. The trial components were removed. The final components were opened on the back table. The periosteal and capsular tissues, especially posteriorly, around the knee were then systematically injected with a periarticular cocktail consisting of 246mg of Ropivacaine, 0.5mg of Epinephrine, 0.08mg of Clonidine, and 30mg of Ketorolac, diluted to 100cc. On the back table, with the implants opened. The cement was mixed. One batch of high viscosity cement was prepared with vacuum assistance. After the cement was ready a small amount was placed on the cut surface of the patella and the patellar button was clamped into position and held. The cementless knee components were placed. Starting with the tibial component, the tibia was subluxed anteriorly and the lug holes of the component were lined up. The tibia was then impacted with an impactor and mallet until the tibial component was in contact with the tibia. The final polyethylene component was inserted. Then, the femoral component was inserted. The lug holes were aligned and the component was impacted into position. The knee was irrigated with Surgiphor Betadine solution. This was allowed to sit in the knee for 3 minutes and then it was irrigated out with saline. After the cement had finally cured, approximately 15min, the clamp was removed from the patella and the knee was taken through range of motion. The patella was tracking with a no-thumbs technique. The capsule was then reapproximated with a No. 1 Vicryl at multiple locations. The capsule was finally closed with a No. 2 Stratafix, barbed suture. Deep tissues were then reapproximated with 0 Vicryl and 2-0 Vicryl. The skin was closed with a running 3-0 Monocryl in a subcuticular fashion. This was reinforced with skin glue. A Mepilex silver dressing was applied along with a [id number] NATHAN wrap. A CryoCuff was applied. Annel was transferred to the hospital bed without difficulty an suffering no apparent complication. She has a good prognosis. Physical therapy will start today and without restrictions, weight-bearing as tolerated. Aspirin 81mg BID will be used for DVT prophylaxis. Date of Procedure: 03/19/25
--- NOTE | 2025-03-19 11:19 | W.ANESPOSTOP ---
Postoperative Evaluation Date, Time and Location Date Performed: 03/19/25 Time Performed: 11:19 Patient Location: PACU Vital Signs Most Recent Imported Vital Signs: Most Recent Vital Signs Temp Pulse Resp BP Pulse Ox 36.3 C L 60 17 150/52 H 98 03/19/25 10:57 03/19/25 10:47 03/19/25 10:47 03/19/25 10:47 03/19/25 10:47 Pain Score Most Recent Pain Score: Most Recent Pain Score Pain Level 0 03/19/25 10:57 Assessment Mental Status: Awake (Alert & Oriented to Patient Baseline) Airway and Respiratory Function: Patent airway with normal (patient baseline) respiratory exam Cardiovascular Function: Hemodynamically Stable Hydration Status: Adequately Hydrated Nausea & Vomiting: No Nausea or Vomiting Pain: Pt. Denies Any Pain Peripheral Nerve Block: Regional nerve block not resolved at time of post operative discharge Postoperative Comments:: Will continue to monitor blood pressure and blood glucose.
--- NOTE | 2025-03-19 11:40 | PT.INIE ---
PT Notes Visit Reasons: Right knee DJD Physical Therapy Day Surgery Initial Evaluation Date: 03/19/2025 Referring Doctor: Sybil Kelsey NP/Dr. Serrano PT Orders: PT CONSULT: Status post Ortho surgery Precautions: WBAT RLE Patient Profile/Admitting Diagnosis: Annel is an 79-year-old female presenting status post elective right TKA by Dr. Serrano on 03/15/2025. Postop uncomplicated PMHX: Diabetes type 2, controlled (Acute) Hyperglycemia due to diabetes mellitus (Acute) Retinopathy, diabetic, bilateral (Acute) Applee Note 07/25/23Pain in right ankle (Acute) Pain in left ankle (Acute) Pain in joint, foot, left (Acute) Anxiety (Chronic) GERD (gastroesophageal reflux disease) (Chronic) Asymptomatic varicose veins (Chronic 03/06/12) DONALD LEFT LEG Lipoma of back (Chronic 04/12/16) MRI confirmed 2016 (not bothersome) Other and unspecified hyperlipidemia (Chronic 11/23/11) Lumbago (Chronic 07/21/12) Sleep disturbance, unspecified (Chronic 09/26/07) heavy snoring, declined 05/2011, delined 06/2018 Essential hypertension (Chronic) Arthralgia (Acute 11/23/11) Type 2 diabetes mellitus with retinopathy of both eyes, with long-term current use of insulin (Chronic) [facility] [place] [facility] Endo manages 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 (Acute) DEPO injection 12/03/24; 01/27/24; 07/29/21Elevated LFTs (Acute) Nail dystrophy (Acute) CKD (chronic kidney disease) (Chronic) Sinus tarsi syndrome of right foot (Acute) Venous insufficiency (Acute) PAD (peripheral artery disease) (Acute) Medical History Hypertensive retinopathy of both eyes 09/28/24 [facility] Retinal hemorrhage (11/23/11) Plantar fasciitis of right foot Surgical History History of total left knee replacement (03/20/24) History of total abdominal hysterectomy and bilateral salpingo-oophorectomy (~1969) Reports her right ovary is present Had appendix removedOophrectomy, Left 1969'sFlex laryngoscopy (07/31/15) Excision, Lipoma (11/17/17) left upper shoulder Colonoscopy - MAC (10/31/17) Cholecystectomy Biopsy of breast 1984 L benignAdenoidectomy Social History/Home Situation: [] Equipment Owned/DME: [] Subjective: [] Objective: [] General Observation: [] Mental Status: [] Pain: Right knee ROM: [] Right Upper Extremity: WFL Left Upper Extremity: WFL Right Lower Extremity: Hip and ankle WFL knee 0-94 degrees Left Lower Extremity: WFL Strength: [] Right Upper Extremity: 5/5 Left Upper Extremity: 5/5 Right Lower Extremity:Hip flexion: 3 -/5; hip abduction: 3/5; hip extension: 3/5; knee extension: 3/5; knee flexion: 3 -/5 ankle DF: 3/5 ; ankle PF: 3/5 Left Lower Extremity:5/5 Sensation: Intact Bed Mobility/Transfers: [] Supine to sit contact-guard assist Sit to stand standby assist cues for hand placement Stand to sit standby assist cues for hand placement Bed to chair with FWW standby assist cues to activate right quad through mid stance Gait: Ambulated with FWW supervision 150 feet with cues to activate quad during weightbearing/through mid stance. Patient demonstrates reduced knee flexion on right during swing phase intermittent right knee buckling during mid stance eliminated with cues to activate quad Balance: [] Static Sitting: Normal Dynamic Sitting: Good Static Standing: Good Dynamic Standing: Fair plus Special Tests: [] Mobility Limitations Standardized Measure [] [facility] AM-PAC 6 clicks Basic Mobility Inpatient Short Form: [] Raw Score: 21 CMS Score: 28.97% Informed Consent/Education: Patient instructed in purpose of PT consult. Treatment: 49304 packet containing TKA exercise protocol has been given to patient. Education and training on initial set of 10 reps of exercises that can be done at home have been completed with patient. Assessment: Patient presents with clinical signs and symptoms consistent with current/admitting diagnoses that have resulted to mobility limitations, gait instability, generalized weakness, and impairment of motor control as demonstrated by the following impairment level findings: 1. Decreased strength to right knee major muscle groups 2. Impaired standing balance 3. Limitation of joint range of motion in right knee 4. Impaired functional activity tolerance 5. Pain right knee Impairments are contributing to the following functional limitations: 1. Inability to safely ambulate without assistive device 2. Increase completion time for mobility ADL performance 3. Increased fall risk 4. Difficulty performing stairs safely independently Patient would benefit from initial home health PT to progress with strengthening and functional mobility prior to outpatient PT. Patient is assessed as a low complexity based on the following: History: 79-year-old female with impairment level findings, functional limitations, and past medical history as indicated above Examination: Demonstrable impairment in strength, balance, and mobility level with underlying impairments and functional limitations as documented above Presentation: Stable/evolving Decision Making: Low Goals: N/A. PT evaluation and 1-2 treatment sessions only for functional mobility training using recommended AD and for HEP instruction. Plan of Care/Treatment Plan: N/A. PT evaluation and 1-2 treatment session only for functional mobility training using recommended AD and for HEP instruction. DISCHARGE RECOMMENDATIONS: Home with HEP and HH PT then transition to outpatient PT as scheduled in 2 weeks TREATMENT CODE/TIME: 14178, [id number] Thank you for the opportunity to participate in the care of this patient. Gayla Sandoval, PT [facility]
== END 2025-03-19 14:25 | disposition home or self-care (01) ==
PROVIDERS: PCP Nurse Practitioner Family; Visit Provider Student in an Organized Health Care Education/Training Program
PROC: (CPT 27447; principal; 2025-03-19 09:30)
DX: M17.11 Unilateral primary osteoarthritis, right knee (principal); G89.18 Other acute postprocedural pain
CPT/HCPCS: 27447; 64447; 97110; 97161; C1776; J0360; J0665; J0666; J0690; J1100; J2250; J2401; J2405; J2704

== ENCOUNTER 2025-04-01 11:35 | Outpatient (CLI) | payer MEDICARE, BC, SELFPAY ==
--- NOTE | 2025-04-01 12:13 | DI.RAD_ITS ---
Exam(s) XR KNEE RT 1V XR STANDING ALIGNMENT EXAM: XR STANDING ALIGNMENT CLINICAL HISTORY: 1ST POST OP R TKA. TECHNIQUE: 2D digital imaging was performed. Standing AP views were performed from the pelvis through the ankles. Weightbearing lateral view of the right knee. COMPARISON: CR XR STANDING ALIGNMENT from 04/02/2024 CR XR KNEE LT 1V from 04/30/2024 CR XR KNEE RT 1V from 04/01/2025 FINDINGS: BONES: No acute fracture is present. No bony destructive lesion is seen. Leg length discrepancy: There is positive 5 millimeters of overall leg length discrepancy, with the left femoral head projecting superior to the right.. JOINTS: Knees: There are bilateral total knee prostheses. The right prosthesis has been placed since the prior exam. Left prosthesis is unchanged. The ankle joints are unremarkable. The hip joints are unremarkable. SOFT TISSUE: Vascular calcifications. Bilateral lower leg edema, right greater than left. Chronic appearing calcifications in the subcutaneous fat of the left leg. IMPRESSION: Bilateral total knee prostheses. Mild leg length discrepancy. DATA REPOSITORY: RADIATION DOSE DELIVERED:
== END 2025-04-01 11:36 | disposition home or self-care (01) ==
LOC: DIORS 11:35
PROVIDERS: PCP Nurse Practitioner Family; Referring Provider Nurse Practitioner; Visit Provider Student in an Organized Health Care Education/Training Program
DX: Z47.1 Aftercare following joint replacement surgery (principal); Z96.651 Presence of right artificial knee joint
CPT/HCPCS: 99024; 73560; 77073

== ENCOUNTER → 2025-04-29 11:03 | Outpatient (BNVA) | payer MEDICARE, BC, SELFPAY | PROVIDERS: PCP Nurse Practitioner Family; Referring Provider Nurse Practitioner; Visit Provider Physician Assistant | DX: Z47.1 Aftercare following joint replacement surgery (principal); Z96.651 Presence of right artificial knee joint | CPT/HCPCS: 99024 ==

== ENCOUNTER 2025-05-06 16:48 | Outpatient (CLI) | payer MEDICARE, BC, SELFPAY ==
[2025-05-06 17:57] LABS: Hemoglobin A1C 7.1 % (<5.7)
== END 2025-05-06 16:49 | disposition home or self-care (01) ==
LOC: LBO 16:49
PROVIDERS: PCP Nurse Practitioner Family; Visit Provider Registered Nurse
DX: E11.65 Type 2 diabetes mellitus with hyperglycemia (principal)
CPT/HCPCS: 36415; 83036

== ENCOUNTER 2025-06-06 04:02 | Outpatient (CLI) | payer MEDICARE, BC, SELFPAY ==
[2025-06-06 10:54] LABS: Anion Gap 7.1 mmol/L (3-11); BUN 18 mg/dL (7-18); CO2 29.9 mmol/L (21.0-32.0); Calcium 9.4 mg/dL (8.5-10.1); Chloride 103 mmol/L (98-107); Estimated GFR 50.80 (mL/min/1.73m2); Glucose 135 mg/dL (74-106); Potassium 3.6 mmol/L (3.5-5.1); Sodium 140 mmol/L (136-145)
== END 2025-06-06 04:03 | disposition home or self-care (01) ==
LOC: LBO 04:02
PROVIDERS: PCP Nurse Practitioner Family; Visit Provider Nurse Practitioner Family
DX: I10 Essential (primary) hypertension (principal)
CPT/HCPCS: 36415; 80048

== ENCOUNTER → 2025-07-02 13:52 | Outpatient (BNVA) | payer MEDICARE, BC, SELFPAY | PROVIDERS: PCP Nurse Practitioner Family; Referring Provider Nurse Practitioner; Visit Provider Podiatrist | DX: L60.3 Nail dystrophy (principal); I73.89 Other specified peripheral vascular diseases; N18.31 Chronic kidney disease, stage 3a; E11.319 Type 2 diabetes mellitus with unspecified diabetic retinopathy without macular edema; Z79.4 Long term (current) use of insulin; R09.89 Other specified symptoms and signs involving the circulatory and respiratory systems; R60.0 Localized edema; I83.93 Asymptomatic varicose veins of bilateral lower extremities; L65.9 Nonscarring hair loss, unspecified; R23.4 Changes in skin texture; L60.2 Onychogryphosis; L60.8 Other nail disorders | CPT/HCPCS: 11721 ==

== ENCOUNTER 2025-07-12 04:14 | Outpatient (CLI) | payer MEDICARE, BC, SELFPAY ==
[2025-07-12 09:02] LABS: ALT 18 U/L (14-59); AST 14 U/L (15-37); Albumin 3.6 g/dL (3.4-5.0); Alkaline Phosphatase 89 U/L (46-116); Bilirubin, Direct 0.1 mg/dL (0.0-0.2); Bilirubin, Total 0.4 mg/dL (0.2-1.0); Total Protein 6.9 g/dL (6.4-8.2)
[2025-07-12 09:19] LABS: Calculated LDL 128 mg/dL (<100); Cholesterol 233 mg/dL (<200); HDL Cholesterol 88 mg/dL (>or=50); Triglyceride 88 mg/dL (<150)
== END 2025-07-12 04:15 | disposition home or self-care (01) ==
PROVIDERS: PCP Nurse Practitioner Family; Referring Provider Nurse Practitioner Family; Visit Provider Nurse Practitioner Family
DX: E11.9 Type 2 diabetes mellitus without complications (principal); R79.89 Other specified abnormal findings of blood chemistry
CPT/HCPCS: 36415; 80061; 80076

== ENCOUNTER 2025-09-13 00:33 | Outpatient (CLI) | payer MEDICARE, BC, SELFPAY ==
[2025-09-13 09:27] LABS: ALT 13 U/L (10-49); AST 23 U/L (<34); Albumin 4.2 g/dL (3.2-5.0); Alkaline Phosphatase 74 U/L (46-116); Anion Gap 9.2 mmol/L (3-11); BUN 19 mg/dL (9-23); Bilirubin, Total 0.7 mg/dL (0.2-1.2); CO2 27.8 mmol/L (20.0-31.0); Calcium 8.9 mg/dL (8.3-10.6); Chloride 107 mmol/L (98-107); Cholesterol 169 mg/dL (<200); Glucose 81 mg/dL (74-106); HDL Cholesterol 86 mg/dL (>or=50); Potassium 4.2 mmol/L (3.5-5.1); Sodium 144 mmol/L (136-145); Total Protein 6.9 g/dL (5.7-8.2)
== END 2025-09-13 00:34 | disposition home or self-care (01) ==
LOC: LBO 00:33
PROVIDERS: PCP Nurse Practitioner Family; Referring Provider Family Medicine; Visit Provider Family Medicine
DX: E78.5 Hyperlipidemia, unspecified (principal); Z13.9 Encounter for screening, unspecified; R79.89 Other specified abnormal findings of blood chemistry
CPT/HCPCS: 36415; 80053; 80061